=== PATIENT | female | born 1990 | race Caucasian/White ===

== ENCOUNTER 2017-12-21 08:03 | Emergency (ER) | payer MEDICAID ==
[2017-12-21] MEDS ORDERED: Sodium Chloride 0.9% 10 ML Syringe FLUSH PRN (08:39)
[2017-12-21] MEDS ORDERED: HYDROmorphone 0.5 MG/0.5 ML SYRINGE IVPUSH ONE (08:39)
--- NOTE | 2017-12-21 08:54 | EDM.PDOC ---
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 She states that she is about 6-1/2 weeks . She had a Pap smear done 5 days ago and then did develop some mild spotting a day later. She did have pelvic ultrasound 3 days ago and at that time there was viable with heart activity and heart rate around 105-110. She also did pass some clots and tissue, may have miscarried "a twin". She's continued to have mild discomfort and spotting for the past 3 days. Had a difficult night last night. The spotting is more in the morning when she first gets up. Because symptoms are not improving, she is worried about viability of she presents for reevaluation at this time. Lower Abdomen Pain Score (Numeric/FACES): 9 - Related Data Allergies Allergy/AdvReac Type Severity Reaction Status Date / Time diphenhydramine HCl Allergy Hives Verified 12/21/17 08:13 [From Benadryl] latex Allergy Swelling Verified 12/21/17 08:13 Penicillins Allergy Airway Verified 12/21/17 08:13 Tightness tetracycline [Tetracycline] Allergy Airway Verified 12/21/17 08:13 Tightness Home Meds: Home Meds Progesterone,Micronized [Progesterone] 100 mg PO DAILY 12/21/17 [History] Past Medical History - Past Health History Medical/Surgical History: Denies Medical/Surgical History Gastrointestinal History: Reports: PUD 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 History: Reports: Other OB/BYN History: A3 Psychiatric History: Reports: None - Past Surgical History Female Surgical History: Reports: Section Social & Family History - Tobacco Use Smoking Status *Q: Current Every Day Smoker Years of Tobacco use: 12 Packs/Tins Daily: 0.2 Used Tobacco, but Quit: No Second Hand Smoke Exposure: No - Caffeine Use Caffeine Use: Reports: None - Alcohol Use Days Per Week of Alcohol Use: 0 - Recreational Drug Use Recreational Drug Use: No Drug Use in Last 12 Months: No ED ROS GENERAL - Review of Systems Review Of Systems: See Below Constitutional: Denies: Fever, Chills HEENT: Reports: No Symptoms Respiratory: Denies: Shortness of Breath, Pleuritic Chest Pain Cardiovascular: Denies: Chest Pain GI/Abdominal: Reports: Abdominal Pain (Lower abdominal and pelvic steady discomfort with occasional cramps). Denies: Nausea, Vomiting : Reports: Pain, Other (Spotting) Musculoskeletal: Reports: Back Pain Skin: Reports: No Symptoms Neurological: Reports: No Symptoms ED EXAM - Physical Exam Exam: See Below General Appearance: Alert, Mild Distress Eye Exam: Bilateral Eye: PERRL Throat/Mouth: Normal Inspection Head: No: Facial Swelling Neck: Supple, Full Range of Motion Respiratory/Chest: No Respiratory Distress, Lungs Clear, Normal Breath Sounds Cardiovascular: Regular Rate, Rhythm GI/Abdominal Exam: Soft, Tender (Mild diffuse tenderness lower mid pelvis). No : Guarding, Rebound Extremities: Normal Inspection Neurological: Alert, Oriented, No Motor/Sensory Deficits Skin Exam: Warm, Dry, Normal Color Course - Vital Signs Last Recorded V/S: Last Vital Signs Temp 99 F 12/21/17 08:07 Pulse 97 12/21/17 08:07 Resp 26 H 12/21/17 08:07 BP 134/78 12/21/17 08:07 Pulse Ox 100 12/21/17 08:07 - Orders/Labs/Meds Orders: Active Orders 24 hr Category Date Time Status Peripheral IV Care [RC] . DIRECTED Care 12/21/17 08:40 Active Sodium Chloride 0.9% [Saline Flush] Med 12/21/17 08:39 Active 10 ml FLUSH ASDIRECTED PRN Peripheral IV Insertion Adult [OM.PC] Stat Oth 12/21/17 08:39 Ordered Medication Orders Sodium Chloride (Saline Flush) 10 ml FLUSH ASDIRECTED PRN PRN Reason: Keep Vein Open Last Admin: 12/21/17 08:55 Dose: 10 ml Labs: Laboratory Tests 12/21/17 Range/Units 09:00 HCG, Quant 3339.0 mIU/mL Meds: Medications Generic Name Dose Route Start Last Admin Trade Name Freq PRN Reason Stop Dose Admin Sodium Chloride 10 ml 12/21/17 08:39 12/21/17 08:55 Saline Flush FLUSH 10 ml ASDIRECTED PRN Administration Keep Vein Open Discontinued Medications Generic Name Dose Route Start Last Admin Trade Name Freq PRN Reason Stop Dose Admin Hydromorphone HCl 0.5 mg 12/21/17 08:39 12/21/17 08:54 Dilaudid IVPUSH 12/21/17 08:40 0.5 mg ONETIME ONE Administration Departure - Departure Time of Disposition: 10:32 Disposition: Home, Self-Care 01 Condition: Fair Clinical Impression: Threatened - Discharge Information Referrals: Frank Dahl MD [Primary Care Provider] - Forms: ED Department Discharge Additional Instructions: rest, avoid exertional activity for now, drink plenty of water to maintain hydration, continue tylenol q 6 to 8 hr for mild to moderate discomfort. You may take 1 hydrocodone up to every 6 hr for severe pain or better to take 500 mg tylenol along with 1/2 tablet hydrocodone q 6 to hr as needed for more severe pain. See Dr Dahl in about 3 to 4 days for recheck. Call Saturday for appt. If soaking more than 1 pad per hour for more than 1 or 2 hours return to ED. Return to ED otherwise as needed. - My Orders Last 24 Hours: My Active Orders 12/21/17 08:39 Sodium Chloride 0.9% [Saline Flush] 10 ml FLUSH ASDIRECTED PRN Peripheral IV Insertion Adult [OM.PC] Stat 12/21/17 08:40 Peripheral IV Care [RC] . DIRECTED - Assessment/Plan Last 24 Hours: My Active Orders 12/21/17 08:39 Sodium Chloride 0.9% [Saline Flush] 10 ml FLUSH ASDIRECTED PRN Peripheral IV Insertion Adult [OM.PC] Stat 12/21/17 08:40 Peripheral IV Care [RC] . DIRECTED
--- NOTE | 2017-12-21 10:11 | US ---
First trimester obstetrical ultrasound: Multiple real-time images were obtained transvaginally. Comparison: No previous study. Dates: LMP: ? Current ultrasound: [facility] 08/15/18, gestational age 6 weeks 1 day Single intrauterine gestation is seen. 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 Gestational sac appears within the right horn of the bicornuate uterus close to the lower uterine segment. Yolk sac and pole are seen. No discrete heart activity is seen at this time. Maternal ovaries are unremarkable. Measurements: [place]-rump length: 0.45 cm - 6 weeks 1 day Impression: 1. Single intrauterine gestational sac containing pole and yolk sac. Sac located on the right side of a bicornuate uterus which is low in position positioned close to the lower uterine segment. 2. No heart activity is seen. If patient does not spontaneously miscarry, recommend follow-up study in 11 days to further evaluate. Diagnostic code #3
[2017-12-21 10:47] VITALS: BP 118/82
== END 2017-12-21 10:48 | disposition home or self-care (01) ==
LOC: JD.ED 08:03
DX: O20.0 Threatened abortion (principal); O99.331 Smoking (tobacco) complicating pregnancy, first trimester; F17.210 Nicotine dependence, cigarettes, uncomplicated; Z88.8 Allergy status to other drugs, medicaments and biological substances; Z91.040 Latex allergy status; Z88.0 Allergy status to penicillin; Z88.1 Allergy status to other antibiotic agents; Z3A.01 Less than 8 weeks gestation of pregnancy
CPT/HCPCS: 36415; 76817; 84702; 96374; 99284; J1170; J7050

== ENCOUNTER 2017-12-21 11:11 | Emergency (ER) | payer MEDICAID ==
[2017-12-21 11:22] VITALS: BP 117/70
[2017-12-21] MEDS ORDERED: Acetaminophen/HYDROcodone 325-5 MG Tab PO ONE (11:38)
--- NOTE | 2017-12-21 11:42 | EDM.PDOC ---
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 Please refer to prior clinical documentation for details of that visit. She had presented with lower abdominal and pelvic discomfort, spotting which all began about 3 or 4 days ago. She had had what sounds like fairly normal OB ultrasound 3 days ago which did show hard activity in the 105-110 range. We did repeat ultrasound this morning just a short time ago with no heart activity visible at that time. After discharge she had just gone to pharmacy to get her prescription for some pain medication filled and felt "a gush of fluid mostly soaking a pad". Also her pain was starting to get worse so she return for reevaluation. She appologized for comiting back so soon but states living almost 1 hour out of town she wanted to be safe. Spotting had been quite mild while in our dept a short time ago. Lower Abdomen Pain Score (Numeric/FACES): 8 - Related Data Allergies Allergy/AdvReac Type Severity Reaction Status Date / Time diphenhydramine HCl Allergy Hives Verified 12/21/17 11:22 [From Benadryl] latex Allergy Swelling Verified 12/21/17 11:22 Penicillins Allergy Airway Verified 12/21/17 11:22 Tightness tetracycline [Tetracycline] Allergy Airway Verified 12/21/17 11:22 Tightness Home Meds: Home Meds Progesterone,Micronized [Progesterone] 100 mg PO DAILY 12/21/17 [History] Past Medical History - Past Health History Medical/Surgical History: Denies Medical/Surgical History Gastrointestinal History: Reports: PUD 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: Other OB/BYN History: A3 Psychiatric History: Reports: None - Past Surgical History Female Surgical History: Reports: Section Social & Family History - Tobacco Use Smoking Status *Q: Current Every Day Smoker Years of Tobacco use: 14 Packs/Tins Daily: 0.2 Used Tobacco, but Quit: No Second Hand Smoke Exposure: No - Caffeine Use Caffeine Use: Reports: None - Alcohol Use Days Per Week of Alcohol Use: 0 - Recreational Drug Use Recreational Drug Use: No Drug Use in Last 12 Months: No ED ROS GENERAL - Review of Systems Review Of Systems: See Below Constitutional: Denies: Fever, Chills, Diaphoresis HEENT: Reports: No Symptoms Respiratory: Denies: Shortness of Breath Cardiovascular: Denies: Chest Pain GI/Abdominal: Reports: Abdominal Pain. Denies: Nausea, Vomiting : Reports: Other. Denies: Pain (Mild to moderate spotting) Musculoskeletal: Reports: Back Pain Skin: Reports: No Symptoms Neurological: Reports: No Symptoms ED EXAM - Physical Exam Exam: See Below General Appearance: Alert, Mild Distress Head: Atraumatic Neck: Supple Respiratory/Chest: No Respiratory Distress GI/Abdominal Exam: Tender (Mild diffuse tenderness lower abdomen) (Female) Exam: Vaginal Bleeding (There is small amount of dark blood posterior vaginal vault, cervix is still closed, no clots or tissue present at this time) Extremities: Normal Inspection, Normal Range of Motion Neurological: Alert, No Motor/Sensory Deficits Skin Exam: Warm, Dry, Normal Color Course - Vital Signs Last Recorded V/S: Last Vital Signs Temp 99.2 F 12/21/17 11:16 Pulse 93 12/21/17 11:16 Resp 16 12/21/17 11:16 BP 117/70 12/21/17 11:16 Pulse Ox 100 12/21/17 11:16 Orthostatic Blood Pressure [ 111/76 Standing] Orthostatic Blood Pressure [ 113/83 Sitting] Orthostatic Blood Pressure [ 117/70 Supine] - Orders/Labs/Meds Meds: Medications Discontinued Medications Generic Name Dose Route Start Last Admin Trade Name Freq PRN Reason Stop Dose Admin Hydrocodone Bitart/Acetaminophen 1 tab 12/21/17 11:38 12/21/17 11:47 [place] 325-5 Mg PO 12/21/17 11:39 1 tab ONETIME ONE Administration - Re-Assessments/Exams Free Text/Narrative Re-Assessment/Exam: 12/21/17 12:24 Patient did well with orthostatics, no significant drop in blood pressure, pulse did increase mildly. Departure - Departure Time of Disposition: 11:42 Disposition: Home, Self-Care 01 Preliminary Cause of *Q: Sepsis & Multi System Organ Failure Clinical Impression: Threatened - Discharge Information Instructions: Threatened Miscarriage, [id number] Referrals: Frank Dahl MD [Primary Care Provider] - Forms: ED Department Discharge Additional Instructions: You've been given hydrocodone 12/19/24 will here in the ED. Also been given Dilaudid 0.5 mg IV 2-1/2 hours ago on your previous visit. These are sedating medications so no driving today. Prior discharge instructions all remain appropriate. See Dr. Dahl early next week for follow-up. Return to ED as needed.
== END 2017-12-21 12:05 | disposition home or self-care (01) ==
LOC: JD.ED 11:11
DX: O20.0 Threatened abortion (principal); O99.331 Smoking (tobacco) complicating pregnancy, first trimester; F17.210 Nicotine dependence, cigarettes, uncomplicated; Z88.8 Allergy status to other drugs, medicaments and biological substances; Z88.0 Allergy status to penicillin; Z88.1 Allergy status to other antibiotic agents; Z3A.01 Less than 8 weeks gestation of pregnancy
CPT/HCPCS: 99284; A9270

== ENCOUNTER 2018-02-26 20:41 | Emergency (ER) | payer MEDICAID ==
[2018-02-26 20:51] VITALS: BP 123/73
[2018-02-26] MEDS ORDERED: HYDROmorphone 0.5 MG/0.5 ML SYRINGE IVPUSH ONE (21:13)
[2018-02-26] MEDS ORDERED: Metoclopramide 10 MG/2 ML SDV IVPUSH ONE (21:13)
[2018-02-26] MEDS ORDERED: Sodium Chloride 0.9% 10 ML Syringe FLUSH PRN (21:13)
[2018-02-26] MEDS ORDERED: Sodium Chloride 0.9% 1,000 ML IV ONE (21:13)
--- NOTE | 2018-02-26 21:18 | EDM.PDOC ---
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 Patient report about 2 hours prior to arrival in the ER she reports severe pelvic cramping. She states that she was diaphoretic and felt nauseous. She reports she is able to get up and eat dinner. While walking after dinner she felt a gush and worsening cramping. She appreciated vaginal bleeding, reports bright red blood, she has not passing clots but states that she has been passing what she feels is likely tissue. She reports at this time her cramps are 7 out of 10. She reports associated symptoms of nausea but no vomiting. She experienced some back pain earlier but none now. She denies any recent fevers, chills or any dysuria. She did take some Tylenol, 500 mg, about an hour prior to arrival in the ER. Patient reports that she continues to have symptoms such as breast tenderness and nausea. She has been taking Unisom for her nausea. She is a . Her AUTO CLAIMS ADJUSTER provider is Dr. Dahl. Last visit with Dr. Dahl was on February 11. She had an ultrasound done which showed a gestational sac within the right arm or for bicornuate uterus. heart rate at that time was 151 bpm. No free fluid in the posterior cul-de-sac. Patient does not know her blood type. Reviewed patient's records show that she is O+. Onset: Today, Sudden Location: Reports: Pelvis Lower Abdomen Pain Score (Numeric/FACES): 6 - Related Data Allergies Allergy/AdvReac Type Severity Reaction Status Date / Time diphenhydramine HCl Allergy Hives Verified 02/26/18 20:46 [From Benadryl] latex Allergy Swelling Verified 02/26/18 20:46 Penicillins Allergy Airway Verified 02/26/18 20:46 Tightness tetracycline [Tetracycline] Allergy Airway Verified 02/26/18 20:46 Tightness Home Meds: Home Meds Progesterone,Micronized [Progesterone] 100 mg PO DAILY 12/21/17 [History] Past Medical History - Past Health History Medical/Surgical History: Denies Medical/Surgical History Gastrointestinal History: Reports: PUD 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 Denies: Vomiting : Reports: Pain (pelvic pain), Other (bright red blood per vaginal, no clots) . Denies: Dysuria Musculoskeletal: Reports: Back Pain (low back. earlier now resolved) ED EXAM - Physical Exam Exam: See Below Exam Limited By: No Limitations General Appearance: Alert, WD/WN, No Apparent Distress, Anxious Throat/Mouth: Normal Inspection Respiratory/Chest: No Respiratory Distress, Lungs Clear, Normal Breath Sounds Cardiovascular: Normal Peripheral Pulses, Regular Rate, Rhythm, No Rub GI/Abdominal Exam: Soft, Non-Tender (Female) Exam: Vaginal Bleeding. No: Cervical Dilatation, Products of Conception, Tissue Present in Cervix/Vagina Heart Tones: Present Neurological: Alert, Oriented, Normal Cognition Psychiatric: Normal Affect, Normal Mood Skin Exam: Warm, Dry, Normal Color Course - Vital Signs Last Recorded V/S: Last Vital Signs Temp 98.1 F 02/26/18 20:46 Pulse 98 02/26/18 20:46 Resp 16 02/26/18 20:46 BP 123/73 02/26/18 20:46 Pulse Ox 100 02/26/18 20:46 - Orders/Labs/Meds Orders: Active Orders 24 hr Category Date Time Status Pelvic Exam, Set Up [RC] ASDIRECTED Care 02/26/18 21:13 Active Peripheral IV Care [RC] . DIRECTED Care 02/26/18 21:14 Active OB Transvaginal [US] Stat Exams 02/26/18 21:13 Stop Req HCG QUANTITATIVE,SERUM [CHEM] Stat Lab 02/26/18 21:13 Ordered UA W/MICROSCOPIC [URIN] Stat Lab 02/26/18 21:12 Ordered Sodium Chloride 0.9% [Saline Flush] Med 02/26/18 21:13 Active 10 ml FLUSH ASDIRECTED PRN Peripheral IV Insertion Adult [OM.PC] Routine Oth 02/26/18 21:12 Ordered Medication Orders Sodium Chloride (Saline Flush) 10 ml FLUSH ASDIRECTED PRN PRN Reason: Keep Vein Open Last Admin: 02/26/18 22:11 Dose: 10 ml Labs: Laboratory Tests 02/26/18 02/26/18 Range/Units 21:57 22:02 WBC 16.28 H (3.98-10.04) K/mm3 RBC 4.02 (3.98-5.22) M/mm3 Hgb 12.8 (11.2-15.7) gm/L Hct 37.1 (34.1-44.9) % MCV 92.3 (79.4-94.8) fl MCH 31.8 (25.6-32.2) pg MCHC 34.5 (32.2-35.5) g/dl RDW Std Deviation 41.1 (36.4-46.3) fL Plt Count 305 (182-369) K/mm3 MPV 10.3 (9.4-12.3) fl Neut % (Auto) 85.7 H (34.0-71.1) % Lymph % (Auto) 10.2 L (19.3-51.7) % [place] % (Auto) 3.7 L (4.7-12.5) % Eos % (Auto) 0.1 L (0.7-5.8) Baso % (Auto) 0.1 (0.1-1.2) % Neut # (Auto) 13.94 H (1.56-6.13) K/mm3 Lymph # (Auto) 1.66 (1.18-3.74) K/mm3 [place] # (Auto) 0.61 H (0.24-0.36) K/mm3 Eos # (Auto) 0.02 L (0.04-0.36) K/mm3 Baso # (Auto) 0.01 (0.01-0.08) K/mm3 Manual Slide Review Normal smear Urine Color Yellow (Yellow) Urine Appearance Clear (Clear) Urine pH 6.0 (5.0-8.0) Ur Specific [place] > or = 1.030 (1.005-1.030) Urine Protein 1+ H (Negative) Urine Glucose (UA) Negative (Negative) Urine Ketones Negative (Negative) Urine Occult Blood 2+ H (Negative) Urine Nitrite Negative (Negative) Urine Bilirubin Negative (Negative) Urine Urobilinogen 0.2 (0.2-1.0) Ur Leukocyte Esterase Negative (Negative) Urine RBC 5-10 H (0-5) /hpf Urine WBC 0-5 (0-5) /hpf Ur Epithelial Cells 0-5 (0-5) /hpf Urine Bacteria Moderate H (FEW) /hpf Urine Mucus Moderate H (FEW) /hpf Meds: Medications Generic Name Dose Route Start Last Admin Trade Name Freq PRN Reason Stop Dose Admin Sodium Chloride 10 ml 02/26/18 21:13 02/26/18 22:11 Saline Flush FLUSH 10 ml ASDIRECTED PRN Administration Keep Vein Open Discontinued Medications Generic Name Dose Route Start Last Admin Trade Name Freq PRN Reason Stop Dose Admin Hydromorphone HCl 0.5 mg 02/26/18 21:13 02/26/18 22:10 Dilaudid IVPUSH 02/26/18 21:14 0.5 mg ONETIME ONE Administration Sodium Chloride 1,000 mls @ 999 mls/hr 02/26/18 21:13 02/26/18 22:08 Normal Saline IV 02/26/18 22:13 999 mls/hr ONETIME ONE Administration Metoclopramide HCl 5 mg 02/26/18 21:13 02/26/18 22:09 Reglan IVPUSH 02/26/18 21:14 5 mg ONETIME ONE Administration - Re-Assessments/Exams Free Text/Narrative Re-Assessment/Exam: 02/26/18 22:44 Offered the patient a transvaginal ultrasound. Given she deos not have an ectopic and she, at this point, has good heart tones would not require one in the ED. Appropriate to wait until tomorrow with Ob for an ultrasound. She agrees, will forgo transvaginal ultrasound tonight. Checked on the patient. She reports feeling better. Feels that her bleeding is subsiding. Her cramping is better. Plan to discharge her home. She is to follow-up with Dr. Patton tomorrow. Pelvic rest. Discharge instructions as documented. Departure - Departure Time of Disposition: 22:46 Disposition: Home, Self-Care 01 Condition: Fair Clinical Impression: Vaginal bleeding during , Pelvic cramping in antepartum period, Threatened - Discharge Information *PRESCRIPTION DRUG MONITORING PROGRAM REVIEWED*: No *COPY OF PRESCRIPTION DRUG MONITORING REPORT IN PATIENT VANE: No Referrals: Frank Dahl MD [Primary Care Provider] - Forms: ED Department Discharge Additional Instructions: Contact Dr. Dahl's office in the morning for follow-up. Call [phone] to schedule with him. Patient drinking plenty of fluids. Pelvic rest. Nothing vaginally until cleared by Dr. Dahl. You were given medication in the ER that can affect your ability to drive and operate machinery. Do not drive or operate machinery within 12 hours of taking prescription narcotic pain medication. May take OTC tylenol as needed for pain. Do not take more than 4 g of Tylenol from all sources in 1 day. [place] 1-2 tabs PO every 4-6 hours prn pain. [place] is habit forming, take as little as needed to control your pain. Do not drive or operate machinery within 12 hours of taking norco. Please return to the ER for symptoms change or worsen. - My Orders Last 24 Hours: My Active Orders 02/26/18 21:12 UA W/MICROSCOPIC [URIN] Stat Peripheral IV Insertion Adult [OM.PC] Routine 02/26/18 21:13 Pelvic Exam, Set Up [] ASDIRECTED OB Transvaginal [US] Stat HCG QUANTITATIVE,SERUM [CHEM] Stat Sodium Chloride 0.9% [Saline Flush] 10 ml FLUSH ASDIRECTED PRN 02/26/18 21:14 Peripheral IV Care [RC] . DIRECTED - Assessment/Plan Last 24 Hours: My Active Orders 02/26/18 21:12 UA W/MICROSCOPIC [URIN] Stat Peripheral IV Insertion Adult [OM.PC] Routine 02/26/18 21:13 Pelvic Exam, Set Up [] ASDIRECTED OB Transvaginal [US] Stat HCG QUANTITATIVE,SERUM [CHEM] Stat Sodium Chloride 0.9% [Saline Flush] 10 ml FLUSH ASDIRECTED PRN 02/26/18 21:14 Peripheral IV Care [RC] . DIRECTED
== END 2018-02-26 22:58 | disposition home or self-care (01) ==
LOC: JD.ED 20:41
DX: O20.0 Threatened abortion (principal); Z3A.09 9 weeks gestation of pregnancy; O99.331 Smoking (tobacco) complicating pregnancy, first trimester; F17.210 Nicotine dependence, cigarettes, uncomplicated; Z79.899 Other long term (current) drug therapy; Z88.0 Allergy status to penicillin; Z88.1 Allergy status to other antibiotic agents; Z88.8 Allergy status to other drugs, medicaments and biological substances; Z91.040 Latex allergy status
CPT/HCPCS: 36415; 81001; 84702; 85025; 96361; 96374; 96375; 99284; J1170; J2765; J7040; J7050

== ENCOUNTER 2018-09-10 12:01 | Inpatient (IN) | payer MEDICAID ==
[2018-09-10] MEDS ORDERED: Citric Acid/Sodium Citrate Solution 30 ML Cup PO ONE (12:19)
[2018-09-10] MEDS ORDERED: Metoclopramide 10 MG/2 ML SDV IVPUSH ONE (12:19)
[2018-09-10] MEDS ORDERED: Nalbuphine 20 MG/ML 1 ML Syringe IVPUSH PRN ×2 (12:19→15:10)
[2018-09-10] MEDS ORDERED: Sodium Chloride 0.9% 10 ML Syringe FLUSH PRN ×2 (12:19→15:10)
--- NOTE | 2018-09-10 12:35 | PCM.LDHP ---
L&D History of Present Illness - General Date of Service: 09/10/18 Admit Problem/Dx: Patient Status Order with Admit Dx/Problem 09/10/18 12:19 Patient Status [ADT] Routine Admission Diagnosis/Problem Admission Diagnosis/Problem Abnormal heart rate affecting Source of Information: Patient History Limitations: Reports: No Limitations - History of Present Illness Introduction:: Jesus Mendoza is a 28 year old female at 37 weeks 5 days by 7 week ultrasound who presents for repeat section in the setting of non- reassuring NST and breech presentation. She presented for a routine visit in the clinic today and was noted to have elevated heart tones by Doppler. She had an NST done due to this and was found to have elevated baseline in the 170s with positive 15 by 15 accelerations and moderate variability. She had one variable deceleration during the NST. She was reporting elevated heart rates when she was checking at home. She has had some [place] contractions and had an episode of contractions this morning that resolved spontaneously. She denies any leaking of fluid or vaginal bleeding. She was found to have complete breech presentation on ultrasound after abnormal Bk's exam. She was offered for external cephalic version versus repeat section and desired to have repeat section. Timing/Duration: Reports: gradual onset (of increasing heart tones since last appointment) Location, : Reports: Lower back, Pelvic Quality: Reports: Pressure, Throbbing Severity: Moderate Pain Score: 7 Improves with: Reports: None Worsens with: Reports: None Associated Symptoms: Denies: vaginal bleeding, vaginal discharge, vaginal fluid Present Illness Comments:: Jesus Mendoza is a 28 year old female at 37 weeks 5 days by 7 week ultrasound with abnormal testing. She has had routine care with myself since 7 weeks gestational age. Review of her labs shows O+ blood type and negative antibody screen. Her hemtocrit was 37.1 and hemoglobin of 12.5 with platelets of 310 on 05/14/2018. She is rubella immune. Her RPR, hepatitis B surface antigen and HIV were all negative. Her urine culture was negative. Her gonorrhea and chlamydia tests were negative prior to miscarriage in November and she declined repeat at the beginning of this . Her initial anatomy ultrasound showed and echogenic focus in the left ventricle and a possible amniotic band was seen. Mclean testing was negative. Repeat ultrasound showed resolution of the echogenic focus and no evidence of the band. Her 1 hour glucose test was normal at 87. Her repeat CBC had a hematocrit with 36.1 and hemoglobin of 11.8 and platelets of 304 on 06/16/2018. Her GBS swab was negative. Her has been complicated by: * History of section for placental abruption at 32 WGA, desired TOLAC * History of delivery at 32 WGA due to placental abruption, patient on Leah IM injections until 36 WGA * Breech presentation at clinic visit * GERD in * Tobacco use in * Anxiety in * Bicornuate uterus - Related Data Allergies/Adverse Reactions: Allergies Allergy/AdvReac Type Severity Reaction Status Date / Time diphenhydramine HCl Allergy Hives Verified 09/10/18 12:40 [From Benadryl] latex Allergy Swelling Verified 09/10/18 12:40 Penicillins Allergy Airway Verified 09/10/18 12:40 Tightness tetracycline [Tetracycline] Allergy Airway Verified 09/10/18 12:40 Tightness tramadol Allergy Hives Verified 09/10/18 12:40 Home Medications: Home Meds PNV95/Ferrous Fumarate/FA [ Vitamin Tablet] 1 tab PO DAILY 09/10/18 [ History] Past Medical History - Past Health History Medical/Surgical History: Denies Medical/Surgical History Gastrointestinal History: Reports: PUD 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 OB/BYN History: A3 Psychiatric History: Reports: None - Past Surgical History Female Surgical History: Reports: Section Social & Family History - Tobacco Use Smoking Status *Q: Current Every Day Smoker - Tobacco Core Measures Tobacco Use/Smoking Within Last 30 Days: Yes Smoking Frequency Within Last 30 Days: Reports: Five or More Cigarettes Per Day Desires Tobacco Cessation Medication: Yes Desired Tobacco Cessation Medication: Nicotine patch after delivery - Caffeine Use Caffeine Use: Reports: None - Alcohol Use Alcohol Use History: No - Recreational Drug Use Recreational Drug Use: No Drug Use in Last 12 Months: No - Living Situation & Occupation Living situation: Reports: , with Spouse H&P Review of Systems - Review of Systems: Review Of Systems: See Below General: Denies: Fever, Chills, Malaise, Weakness, Fatigue HEENT: Reports: Glasses. Denies: Post Nasal Drip, Sinus Congestion, Sore Throat , Visual Changes Pulmonary: Denies: Shortness of Breath, Wheezing, Cough Cardiovascular: Denies: Chest Pain, Palpitations, Dyspnea on Exertion Gastrointestinal: Denies: Abdominal Pain, Constipation, Diarrhea, Nausea, Vomiting Genitourinary: Denies: Dysuria, Frequency, Burning, Pain, Urgency Musculoskeletal: Reports: Back Pain (hip and pelvic pain and pressure) Skin: Denies: Rash, Lesions Psychiatric: Denies: Depression, Anxiety Neurological: Denies: Dizziness L&D Exam - Exam Exam: See Below - Vital Signs Vital Signs: BP: 119/70 Weight: 84.64 kg - OB Specific Fundal Height In cm: 38 Contraction Duration (sec): irritability Contraction Intensity: Irritability Movement: Active Heart Tones: Present Heart Tones per Min: 170 (+15 x 15 accelerations, 1 variable deceleration during NST) Heart Rate (FHR) Variability: Moderate (6-25 bmp) Presentation: Breech Estimated Weight: 6.5-7 pounds by Bk's - Harper Score Harper Score Cervix Position: Anterior Harper Score Consistency: Medium Harper Score Effacement: >80% (80%) Harper Score Dilation: 3-4 cm (3 cm) Harper Score Infant's Station: -3 Harper Score Total: 8 - Exam General: Alert, Oriented HEENT: Conjunctiva Clear, EOMI Neck: Supple, Trachea Midline Lungs: Clear to Auscultation, Normal Respiratory Effort Cardiovascular: Regular Rate, Regular Rhythm GI/Abdominal Exam: Soft, No Distention, Other (Gravid). No: Guarding, Rigid, Rebound Genitourinary: Normal external exam Extremities: No Pedal Edema Skin: Warm, Dry, Intact Psychiatric: Alert, Normal Affect, Normal Mood - Patient Data Result Diagrams: 09/10/18 13:14 - Problem List (1) 37 weeks gestation of SNOMED Code(s): 91662285 ICD Code: Z3A.37 - 37 WEEKS GESTATION OF Status: Acute Current Visit: Yes (2) Non-reassuring electronic monitoring tracing SNOMED Code(s): 943154258 ICD Code: O76 - ABNLT IN HEART RATE AND RHYTHM COMP LABOR AND DELIVERY Status: Acute Current Visit: Yes (3) Breech presentation SNOMED Code(s): 5454645 ICD Code: O32.1XX0 - MATERNAL CARE FOR BREECH PRESENTATION, UNSP Status: Acute Current Visit: Yes (4) History of delivery, currently SNOMED Code(s): 279346552, 909407975 ICD Code: O34.219 - MATERNAL CARE FOR UNSP TYPE SCAR FROM PREVIOUS DEL Status: Acute Current Visit: Yes (5) History of section SNOMED Code(s): 685497701 ICD Code: Z98.891 - HISTORY OF UTERINE SCAR FROM PREVIOUS SURGERY Status: Acute Current Visit: Yes (6) History of delivery SNOMED Code(s): 954852031 ICD Code: Z87.51 - PERSONAL HISTORY OF PRE-TERM LABOR Status: Acute Current Visit: Yes (7) History of delivery, currently SNOMED Code(s): 777547627, 252991816 ICD Code: O09.219 - SUPRVSN OF PREG W HISTORY OF PRE-TERM LABOR, UNSP TRIMESTER Status: Acute Current Visit: Yes (8) History of placental abruption SNOMED Code(s): 205491249, 465908115 ICD Code: Z87.59 - PERSONAL HISTORY OF COMP OF PREG, CHLDBRTH AND THE PUERP Status: Acute Current Visit: Yes (9) Tobacco use during SNOMED Code(s): 012327659833099 ICD Code: O99.330 - SMOKING (TOBACCO) COMPLICATING , UNSP TRIMESTER Status: Acute Current Visit: Yes (10) Anxiety SNOMED Code(s): 59272749 ICD Code: F41.9 - ANXIETY DISORDER, UNSPECIFIED Status: Acute Current Visit: Yes Problem List Initiated/Reviewed/Updated: Yes Orders Last 24hrs: Active Orders 24 hr Category Date Time Status Patient Status [ADT] Routine ADT 09/10/18 12:19 Ordered Communication Order [RC] ROUTINE Care 09/10/18 12:19 Ordered Heart Tones [RC] PER UNIT ROUTINE Care 09/10/18 12:19 Ordered Non Stress Test [RC] PER UNIT ROUTINE Care 09/10/18 12:19 Ordered Peripheral IV Care [RC] . DIRECTED Care 09/10/18 12:21 Ordered Procedure Site Prep Instruct [RC] ASDIRECTED Care 09/10/18 12:19 Ordered Verify Patient Consent Obtain [RC] PER UNIT ROUTINE Care 09/10/18 12:19 Ordered Vital Signs [RC] PFP Care 09/10/18 12:19 Ordered Nothing Per Oral Diet [DIET] Diet 09/10/18 Lunch Ordered CBC WITH AUTO DIFF [HEME] Routine Lab 09/10/18 12:19 Ordered RAPID PLASMA REAGIN,RPR [CHEM] Routine Lab 09/10/18 12:19 Ordered TYPE AND SCREEN [BBK] Routine Lab 09/10/18 12:19 Ordered Citric Acid/Sodium Citrate [Bicitra Solution] Med 09/10/18 12:19 Once 30 ml PO ONETIME ONE Lactated Ringers @ 125 MLS/HR(1000ml) Med 09/10/18 12:30 Ordered Lactated Ringers [Ringers, Lactated] 1,000 ml IV ASDIRECTED Metoclopramide [Reglan] Med 09/10/18 12:19 Once 10 mg IVPUSH ONETIME ONE Nalbuphine [Nubain] Med 09/10/18 12:19 Ordered 10 mg IVPUSH Q2H PRN Sodium Chloride 0.9% [Saline Flush] Med 09/10/18 12:19 Ordered 10 ml FLUSH ASDIRECTED PRN ceFAZolin [Ancef] 2 gm Med 09/10/18 12:19 Ordered Premix Bag 1 bag IV ONETIME Peripheral IV Insertion Adult [OM.PC] Routine Oth 09/10/18 12:19 Ordered Schedule Procedure [COMM] Per Unit Routine Oth 09/10/18 14:15 Ordered Resuscitation Status Routine Resus Stat 09/10/18 12:19 Ordered Assessment/Plan Comment:: Patient presents to labor and delivery for planned section. On arrival to labor and delivery she had resolution of her tachycardia. Patient did have nonreassuring NST in the clinic and recommended for continued delivery due to this nonreassuring NST and greater than 37 weeks gestational age. * Had further discussions with the patient regarding her desire for delivery method and she would like to try for a vaginal delivery. Given this new information discussed the risks and benefits of a attempted version with the patient and she desired to proceed with the attempted external cephalic version. * Consents were reviewed and signed with the patient for external cephalic version, possible trial of labor after section and possible section. Discussed risks and benefits of each of these procedures and patient states understanding. Consents were signed. * CBC and type and screen were collected prior to procedure * Patient to be nothing by mouth until after procedure * RPR collected * NST prior to procedure * Place IV and start LR@125 mL per hour * Plan for external cephalic version to be done in the operating room after patient has been given an epidural. If successful she'll be transferred back for induction of labor with Pitocin. If unsuccessful then will do a at that time. Frank Dahl M.D. 2:12 PM 09/10/2018
[2018-09-10] MEDS: Lactated Ringers 1,000 ML IV SCH ×6 (12:45→20:35)
[2018-09-10] MEDS ORDERED: DEXTROSE 5% IV ONE ×2 (13:00)
[2018-09-10] MEDS ORDERED: Clindamycin Phosphate 900 MG in Sodium Chloride 0.9% 100 ML IV ONE (13:00)
[2018-09-10] MEDS ORDERED: ceFAZolin 2 GM in Premix Bag 1 BAG IV ONE (13:00)
[2018-09-10] MEDS ORDERED: WATER IV ONE ×2 (13:00)
[2018-09-10] MEDS ORDERED: GENTAMICIN IV ONE ×2 (13:00)
[2018-09-10] MEDS ORDERED: Bupivacaine 0.5% 30 ML SDV ONE (13:17)
--- NOTE | 2018-09-10 13:25 | PCM.PREANE ---
Preanesthetic Assessment - Anesthesia/Transfusion/Family Hx Anesthesia History: Prior Anesthesia Without Reaction Family History of Anesthesia Reaction: No Transfusion History: No Prior Transfusion(s) - Review of Systems General: No Symptoms Pulmonary: Other (smoker, smokes 7 per day) Cardiovascular: No Symptoms Gastrointestinal: Other (GERD on a rare occasion) - Physical Assessment NPO Status Date: 09/10/18 NPO Status Time: 10:30 (apple, orange and crackers [id number]) O2 Sat by Pulse Oximetry: 97 Respiratory Rate: 16 Vital Signs: Last Vital Signs Temp 37.6 C 09/10/18 12:19 Pulse 103 H 09/10/18 12:19 Resp 16 09/10/18 12:19 BP 143/87 H 09/10/18 12:19 Pulse Ox 97 09/10/18 12:19 Height: 1.57 m Weight: 83.915 kg ASA Class: 2 Mental Status: Alert & Oriented x3 Airway Class: Mallampati = 2 Dentition: Reports: Normal Dentition Thyro-Mental Finger Breadths: 3 Mouth Opening Finger Breadths: 3 ROM/Head Extension: Full Lungs: Clear to Auscultation, Normal Respiratory Effort Cardiovascular: Regular Rate, Regular Rhythm - Allergies Allergies/Adverse Reactions: Allergies Allergy/AdvReac Type Severity Reaction Status Date / Time diphenhydramine HCl Allergy Hives Verified 09/10/18 12:40 [From Benadryl] latex Allergy Swelling Verified 09/10/18 12:40 Penicillins Allergy Airway Verified 09/10/18 12:40 Tightness tetracycline [Tetracycline] Allergy Airway Verified 09/10/18 12:40 Tightness tramadol Allergy Hives Verified 09/10/18 12:40 - Blood Blood Available: No Product(s) Available: None - Anesthesia Plan Pre-Op Medication Ordered: None - Acknowledgements Anesthesia Type Planned: Epidural Pt an Appropriate Candidate for the Planned Anesthesia: Yes Alternatives and Risks of Anesthesia Discussed w Pt/Guardian: Yes Pt/Guardian Understands and Agrees with Anesthesia Plan: Yes PreAnesthesia Questionnaire - Past Health History Medical/Surgical History: Denies Medical/Surgical History Gastrointestinal History: Reports: PUD 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 OB/BYN History: A3 Psychiatric History: Reports: None - Infectious Disease History Infectious Disease History: Reports: None - Past Surgical History Female Surgical History: Reports: Section - SUBSTANCE USE Smoking Status *Q: Current Every Day Smoker Tobacco Use Within Last Twelve Months: Cigarettes Second Hand Smoke Exposure: No Recreational Drug Use History: No - HOME MEDS Home Medications: Home Meds PNV95/Ferrous Fumarate/FA [ Vitamin Tablet] 1 tab PO DAILY 09/10/18 [ History] - CURRENT (IN HOUSE) MEDS Current Meds: Current Medications Gentamicin Sulfate (Pharmacy To Dose - Gentamicin) 1 dose .XX ASDIRECTED JOSE Stop: 09/10/18 15:00 Cefazolin Sodium/Dextrose 2 gm (/ Premix) 50 mls @ 100 mls/hr IV ONETIME ONE Stop: 09/10/18 13:29 Lactated Ringer's (Ringers, Lactated) 1,000 mls @ 125 mls/hr IV ASDIRECTED [facility] Last Admin: 09/10/18 12:45 Dose: 125 mls/hr Clindamycin Phosphate 900 mg/ (Sodium Chloride) 106 mls @ 212 mls/hr IV ONETIME ONE Stop: 09/10/18 13:29 Gentamicin Sulfate 320 mg/ (Dextrose/Water) 108 mls @ 108 mls/hr IV ONETIME ONE Stop: 09/10/18 13:59 Nalbuphine HCl (Nubain) 10 mg IVPUSH Q2H PRN PRN Reason: pain Sodium Chloride (Saline Flush) 10 ml FLUSH ASDIRECTED PRN PRN Reason: Keep Vein Open Discontinued Medications Citric Acid/Sodium Citrate (Bicitra Solution) 30 ml PO ONETIME ONE Stop: 09/10/18 12:20 Metoclopramide HCl (Reglan) 10 mg IVPUSH ONETIME ONE Stop: 09/10/18 12:20
[2018-09-10] MEDS ORDERED: fentaNYL 100 MCG/2 ML SDV ONE (13:39)
[2018-09-10] MEDS ORDERED: Lidocaine 2% with EPINEPHrine 1:200,000 20 ML SDV ONE (13:40)
[2018-09-10] MEDS ORDERED: Sodium Bicarbonate 8.4% 50 MEQ/50 ML SDV ONE (13:40)
[2018-09-10] MEDS ORDERED: ePHEDrine 50 MG/ML SDV IVPUSH PRN ×2 (14:38→16:07)
[2018-09-10] MEDS ORDERED: Ondansetron 4 MG/2 ML SDV IVPUSH PRN ×3 (14:38→16:07)
[2018-09-10] MEDS ORDERED: Bupivacaine/fentaNYL/NS 100 ML Bag EPIDUR SCH (14:45)
--- NOTE | 2018-09-10 15:01 | PCM48HPAN ---
Post Anesthesia Note - EVALUATION WITHIN 48HRS OF ANESTHETIC Vital Signs in Normal Range: Yes Patient Participated in Evaluation: Yes Respiratory Function Stable: Yes Airway Patent: Yes Cardiovascular Function Stable: Yes Hydration Status Stable: Yes Pain Control Satisfactory: Yes Nausea and Vomiting Control Satisfactory: Yes Mental Status Recovered: Yes Pulse Rate: 100 SaO2: 100 Resp Rate: 16 Blood Pressure: 114/63
[2018-09-10] MEDS ORDERED: Acetaminophen 325 MG Tab PO PRN (15:10)
--- NOTE | 2018-09-10 15:14 | PCM.OPNOTE ---
- General Post-Op/Procedure Note Date of Surgery/Procedure: 09/10/18 Operative Procedure(s): External cephalic version Findings: initially in thad breech presentation with head on maternal right and spine towards maternal right side. External cephalic version is successful and in vertex presentation at the end of the procedure. Normal heart tones by ultrasound after the procedure. Pre Op Diagnosis: 37 weeks gestational age with nonreassuring NST and breech presentation in the clinic desiring external cephalic version Post-Op Diagnosis: Same with successful external cephalic version and desires trial of labor after section Anesthesia Technique: Epidural Primary Surgeon: Frank Dahl Anesthesia Provider: Naomi Flannery Pathology: None Fluid Replacement, Intraop: 1,900 Output, Urine Amount: 0 (Voided prior to procedure) EBL in mLs: 0 Complications: None Condition: Good Free Text/Narrative:: The patient was seen on labor and delivery after being sent down from clinic. Her NST at that time showed resolution of the tachycardia but I still recommended for continuation of delivery given the nonreassuring status of the NST in the clinic. Patient in agreement fluid given the resolution of the abnormal heart tracing she stated that she would like to try external cephalic version with trial of labor after section is successful and repeat section if unsuccessful. Discussed the risks and benefits of each of the procedures with the patient and she states understanding. Consents were signed. The patient was taken back to the operating room #1. She was given epidural anesthesia and placed in dorsal supine position with left lateral tilt. A timeout was done to confirm the correct patient and procedure with 2 patient identifiers. Ultrasound was performed which showed head near the uterine fundus on maternal right side with thad breech position and normal amount of fluid. The spine was to the maternal right side. The heart was visualized and heart rate was felt to be in the 130s. The pelvis was then lifted out of the maternal pelvis and pressure was applied to rotate the infant in a backward somersault maneuver with a counterclockwise rotation. After approximately 30 seconds of pressure the head was evaluated and felt to be in the right lower quadrant of the uterus in oblique position. Additional pressure was applied to the head and pelvis for additional counterclockwise rotation and the head was positioned in the midline of the maternal pelvis. The heart was evaluated at this time and heart rate continued to be in the 130s and appeared that the infant tolerated the procedure well. The procedure was complete at this time and mother and infant tolerated the procedure without difficulty. The mother will be transferred back to labor and delivery and started on Pitocin for induction of labor given her nonreassuring NST that was previously performed with resolution prior to the external cephalic version. We will continue to monitor closely for other indications that would indicate need for repeat section. Anticipate vaginal delivery unless otherwise indicated.
[2018-09-10] MEDS ORDERED: Oxytocin/Lactated Ringers 10 UNIT/1,000 ML BAG IV SCH ×3 (15:15→22:10)
[2018-09-10] MEDS: Nicotine 21 MG/24 Hr Patch TRDERM SCH (16:07)
[2018-09-10] MEDS ORDERED: fentaNYL/Bupivacaine-NS 2 MCG/ML-0.125%/PF 100 ML Bag EP SCH (16:15)
--- NOTE | 2018-09-10 17:21 | PCM.PNLD ---
Labor Progress Note - VS & Meds Vital Signs: Last Vital Signs Temp 37.6 C 09/10/18 12:19 Pulse 100 09/10/18 15:01 Resp 16 09/10/18 15:01 BP 114/63 09/10/18 15:01 Pulse Ox 100 09/10/18 15:01 Active Medications: Current Medications Acetaminophen (Tylenol) 650 mg PO Q6H PRN PRN Reason: Pain (Mild 1-3) and fever Ephedrine Sulfate (Ephedrine Sulfate) 5 mg IVPUSH ASDIRECTED PRN PRN Reason: Hypotension Fentanyl/Bupivacaine HCl (Suxjdjig-Zekhi-Td 2 Mcg/Ml-0.125%) 100 ml EP ASDIRECTED JOSE Last Admin: 09/10/18 16:31 Dose: 100 ml Lactated Ringer's (Ringers, Lactated) 1,000 mls @ 100 mls/hr IV ASDIRECTED JOSE Last Admin: 09/10/18 15:58 Dose: 999 mls/hr Oxytocin/Lactated Ringer's (Pitocin In Lr 10 Units/1,000 Ml) 10 unit in 1,000 mls @ 100 mls/hr IV .CONTINUOUS JOSE Oxytocin/Lactated Ringer's (Pitocin In Lr 10 Units/1,000 Ml) 10 unit in 1,000 mls @ 12 mls/hr IV TITRATE JOSE; Protocol Last Titration: 09/10/18 17:05 Dose: 6 munits/min, 36 mls/hr Miscellaneous Information (Remove Patch) 1 ea TRDERM Q24H JOSE Nalbuphine HCl (Nubain) 10 mg IVPUSH Q2H PRN PRN Reason: Pain (moderate 4-6) Nicotine (Habitrol) 21 mg TRDERM DAILY [facility] Last Admin: 09/10/18 16:07 Dose: 21 mg Ondansetron HCl (Zofran) 4 mg IVPUSH Q4H PRN PRN Reason: Nausea/Vomiting Ondansetron HCl (Zofran) 4 mg IVPUSH ONETIME PRN PRN Reason: Nausea/Vomiting Sodium Chloride (Saline Flush) 10 ml FLUSH ASDIRECTED PRN PRN Reason: Keep Vein Open Discontinued Medications Bupivacaine HCl (Marcaine 0.5%) Confirm Administered Dose 30 ml .ROUTE .STK-MED ONE Stop: 09/10/18 13:18 Citric Acid/Sodium Citrate (Bicitra Solution) 30 ml PO ONETIME ONE Stop: 09/10/18 12:20 Last Admin: 09/10/18 13:50 Dose: 30 ml Ephedrine Sulfate (Ephedrine Sulfate) 5 mg IVPUSH ASDIRECTED PRN PRN Reason: Hypotension Fentanyl (Sublimaze) Confirm Administered Dose 100 mcg .ROUTE .STK-MED ONE Stop: 09/10/18 13:40 Fentanyl/Bupivacaine HCl (Fentanyl/Bupivacaine/Ns 2 Mcg-0.125% 100 Ml) 100 ml EPIDUR ASDIRECTED [facility] Gentamicin Sulfate (Pharmacy To Dose - Gentamicin) 1 dose .XX ASDIRECTED [facility] Stop: 09/10/18 15:00 Cefazolin Sodium/Dextrose 2 gm (/ Premix) 50 mls @ 100 mls/hr IV ONETIME ONE Stop: 09/10/18 13:29 Lactated Ringer's (Ringers, Lactated) 1,000 mls @ 125 mls/hr IV ASDIRECTED [facility] Last Admin: 09/10/18 13:50 Dose: 999 mls/hr Clindamycin Phosphate 900 mg/ (Sodium Chloride) 106 mls @ 212 mls/hr IV ONETIME ONE Stop: 09/10/18 13:29 Gentamicin Sulfate 320 mg/ (Dextrose/Water) 108 mls @ 108 mls/hr IV ONETIME ONE Stop: 09/10/18 13:59 Lidocaine/Epinephrine (Xylocaine-Mpf 2%-Epi 1:200,000) Confirm Administered Dose 20 ml .ROUTE .STK-MED ONE Stop: 09/10/18 13:41 Metoclopramide HCl (Reglan) 10 mg IVPUSH ONETIME ONE Stop: 09/10/18 12:20 Last Admin: 09/10/18 13:50 Dose: 10 mg Nalbuphine HCl (Nubain) 10 mg IVPUSH Q2H PRN PRN Reason: pain Ondansetron HCl (Zofran) 4 mg IVPUSH ONETIME PRN PRN Reason: Nausea/Vomiting Sodium Bicarbonate (Sodium Bicarbonate 8.4%) Confirm Administered Dose 50 meq .ROUTE .STK-MED ONE Stop: 09/10/18 13:41 Sodium Chloride (Saline Flush) 10 ml FLUSH ASDIRECTED PRN PRN Reason: Keep Vein Open - Uterine Contractions Uterine Monitoring Mode: External [place] Contraction Frequency (min): 2-3 Contraction Duration (sec): 45-60 Contraction Intensity: Moderate to Strong Uterine Resting Tone: Soft - Monitoring Monitor Mode: Doppler/Auscultation Heart Rate (FHR) Baseline: 130 Heart Rate (FHR) Variability: Moderate (6-25 bmp) Accelerations: Present, 15x15 Decelerations: Prolonged (>2x10 min) (one prolonged deceleration with hypotension, none since) Strip Review: Category I - Vaginal Exam Dilation (cm): 4 Effacement (Percent): 90 Station: -2 Cervical Position: Anterior Sterile Vaginal Exam Performed By: Frank Dahl Vaginal Exam Comment: Artificial rupture of membranes with [place] performed. Return of clear fluid. Mother and infant tolerated well and without difficulty. - Labor Progress (Free Text) Labor Progress: Doing well. Continue pitocin for induction of labor Close monitoring of strip with non-reactive NST in the clinic. Monitor vital signs Continue epidural for anesthesia Anticipate vaginal delivery unless otherwise indicated. Frank Dahl MD 5:21 PM 09/10/2018
--- NOTE | 2018-09-10 22:08 | PCM.DEL ---
L & D Note - General Info Date of Service: 09/10/18 Mother's Due Date: 09/26/18 - Delivery Note Labor: Induced by ARM, Induced by Oxytocin Delivery Outcome: Livebirth Infant Delivery Method: Spontaneous Vaginal Delivery-Single Presentation: Right Occiput Anterior (LUCIO) Nuchal Cord: None Prep: Povidone-Iodine (Betadine Anesthesia Type: Epidural Amniotic Fluid Description: Clear Episiotomy Type: None Laceration: 2nd Degree, Perineal (midline, repaired 3-0 Vicryl) Suture type: Vicryl Suture size: 3-0 Placenta: Intact, Spontaneous Cord: 3 Vessels Estimated Blood Loss: 300 Resuscitation Needed: No Rinard: Bulb Syringe, Stimulated, Warmed, [place] Used Provider: Frank Dahl Score 1 min: 8 Score 5 min: 9 Second Stage Interventions: Reports: Pushing Effectively, Pushing, Stirrups/Leg Supports Delivery Comments (Free Text/Narrative):: Stage I: Jesus Mendoza was admitted for planned delivery after she was seen in the clinic and had nonreactive NST. While she was evaluated in the clinic she was noted to have a thad breech presentation with the head on the maternal right side. Patient presented on labor and delivery and had an NST where she had resolution of the tachycardia that was noted on the NST and she desired to have a external cephalic version performed. Risks and benefits of this procedure with possible trial labor after section and possible section were discussed with the patient and she desired to proceed with the external cephalic version. Consents were signed. She was taken back to operating room #1 and given an epidural for anesthesia. The external cephalic version was performed without difficulty and the was able to be turned into vertex presentation. Please see procedure note for full details. She was transferred back to labor and delivery and started on Pitocin for induction of labor. Her cervix was 3 cm dilated at this time. She was GBS negative. She had artificial rupture of membranes with clear fluid. She progressed to complete and pushing. Stage II: On 09/10/2018 she had a normal vaginal delivery after section of a live male at 2126. Apgars of 8 & 9. Weight of 3430 g (7 lbs 9 oz). Length of 21 inches. There was no nuchal cord. was delivered in LUCIO position. The cord was doubly clamped and cut by myself. was placed on mother's abdomen. Stage III: She had a spontaneous delivery of an intact placenta in [place] presentation. Three vessel cord. She was given pitocin and fundal massage. She had significant degree midline perineal laceration that was repaired in normal fashion with 3-0 Vicryl. Mom and baby were stable to recovery. EBL of 300 mL. Frank Dahl MD 10:07 PM 09/10/2018 Induction Criteria - Harper Score Harper Score Dilation: 3-4 cm Harper Score Effacement: >80% Harper Score 's Station: -3 Harper Score Consistency: Medium Harper Score Cervix Position: Anterior Harper Score Total: 8 Harper Score Presenting Part: Reports: Cephalic - Induction Gestational Age >/= 39 wks: No Medical Indication: Nonreactive NST with tachycardia with baseline of 170s Estimated Pelvis: Reports: Adequate Reassuring Monitoring Strip: Yes Absence of Tachy Systole: Yes - Augmentation Estimated Pelvis: Reports: Adequate Weight Estimated:: Reports: AGA Reassuring Monitoring Strip: Yes Absence of Tachy Systole: Yes - General Info Date of Service: 09/10/18 - Patient Data Vitals - Most Recent: Last Vital Signs Temp 37.6 C 09/10/18 12:19 Pulse 100 09/10/18 15:01 Resp 16 09/10/18 15:01 BP 114/63 09/10/18 15:01 Pulse Ox 100 09/10/18 15:01 Weight - Most Recent: 84.64 kg I&O - Last 24 Hours: Intake & Output 09/10/18 09/10/18 09/10/18 06:59 14:59 22:59 Intake Total 7000 Output Total 1000 Balance 6000 Lab Results Last 24 Hours: Laboratory Results - last 24 hr 09/10/18 09/10/18 09/10/18 Range/Units 13:14 13:14 13:14 WBC 10.83 H (3.98-10.04) K/mm3 RBC 3.59 L (3.98-5.22) M/mm3 Hgb 11.1 L (11.2-15.7) gm/L Hct 33.7 L (34.1-44.9) % MCV 93.9 (79.4-94.8) fl MCH 30.9 (25.6-32.2) pg MCHC 32.9 (32.2-35.5) g/dl RDW Std Deviation 46.5 H (36.4-46.3) fL Plt Count 291 (182-369) K/mm3 MPV 9.5 (9.4-12.3) fl Neut % (Auto) 80.0 H (34.0-71.1) % Lymph % (Auto) 14.4 L (19.3-51.7) % [place] % (Auto) 4.5 L (4.7-12.5) % Eos % (Auto) 0.6 L (0.7-5.8) Baso % (Auto) 0.2 (0.1-1.2) % Neut # (Auto) 8.67 H (1.56-6.13) K/mm3 Lymph # (Auto) 1.56 (1.18-3.74) K/mm3 [place] # (Auto) 0.49 H (0.24-0.36) K/mm3 Eos # (Auto) 0.06 (0.04-0.36) K/mm3 Baso # (Auto) 0.02 (0.01-0.08) K/mm3 RPR Non-reactive (NONREACTIVE) Blood Type O POSITIVE Gel Antibody Screen Negative Med Orders - Current: Current Medications Acetaminophen (Tylenol) 650 mg PO Q6H PRN PRN Reason: Pain (Mild 1-3) and fever Ephedrine Sulfate (Ephedrine Sulfate) 5 mg IVPUSH ASDIRECTED PRN PRN Reason: Hypotension Fentanyl/Bupivacaine HCl (Mlehefhq-Dhnbx-Jn 2 Mcg/Ml-0.125%) 100 ml EP ASDIRECTED JOSE Last Admin: 09/10/18 16:31 Dose: 100 ml Lactated Ringer's (Ringers, Lactated) 1,000 mls @ 100 mls/hr IV ASDIRECTED [facility] Last Admin: 09/10/18 20:35 Dose: 150 mls/hr Oxytocin/Lactated Ringer's (Pitocin In Lr 10 Units/1,000 Ml) 10 unit in 1,000 mls @ 100 mls/hr IV .CONTINUOUS JOSE Oxytocin/Lactated Ringer's (Pitocin In Lr 10 Units/1,000 Ml) 10 unit in 1,000 mls @ 12 mls/hr IV TITRATE JOSE; Protocol Last Titration: 09/10/18 21:27 Dose: 500 mls/hr Miscellaneous Information (Remove Patch) 1 ea TRDERM Q24H JOSE Nalbuphine HCl (Nubain) 10 mg IVPUSH Q2H PRN PRN Reason: Pain (moderate 4-6) Nicotine (Habitrol) 21 mg TRDERM DAILY [facility] Last Admin: 09/10/18 16:07 Dose: 21 mg Ondansetron HCl (Zofran) 4 mg IVPUSH Q4H PRN PRN Reason: Nausea/Vomiting Ondansetron HCl (Zofran) 4 mg IVPUSH ONETIME PRN PRN Reason: Nausea/Vomiting Sodium Chloride (Saline Flush) 10 ml FLUSH ASDIRECTED PRN PRN Reason: Keep Vein Open Discontinued Medications Bupivacaine HCl (Marcaine 0.5%) Confirm Administered Dose 30 ml .ROUTE .STK-MED ONE Stop: 09/10/18 13:18 Citric Acid/Sodium Citrate (Bicitra Solution) 30 ml PO ONETIME ONE Stop: 09/10/18 12:20 Last Admin: 09/10/18 13:50 Dose: 30 ml Ephedrine Sulfate (Ephedrine Sulfate) 5 mg IVPUSH ASDIRECTED PRN PRN Reason: Hypotension Fentanyl (Sublimaze) Confirm Administered Dose 100 mcg .ROUTE .STK-MED ONE Stop: 09/10/18 13:40 Fentanyl/Bupivacaine HCl (Fentanyl/Bupivacaine/Ns 2 Mcg-0.125% 100 Ml) 100 ml EPIDUR ASDIRECTED [facility] Gentamicin Sulfate (Pharmacy To Dose - Gentamicin) 1 dose .XX ASDIRECTED [facility] Stop: 09/10/18 15:00 Cefazolin Sodium/Dextrose 2 gm (/ Premix) 50 mls @ 100 mls/hr IV ONETIME ONE Stop: 09/10/18 13:29 Last Admin: 09/10/18 19:16 Dose: Not Given Lactated Ringer's (Ringers, Lactated) 1,000 mls @ 125 mls/hr IV ASDIRECTED [facility] Last Admin: 09/10/18 13:50 Dose: 999 mls/hr Clindamycin Phosphate 900 mg/ (Sodium Chloride) 106 mls @ 212 mls/hr IV ONETIME ONE Stop: 09/10/18 13:29 Last Admin: 09/10/18 19:15 Dose: Not Given Gentamicin Sulfate 320 mg/ (Dextrose/Water) 108 mls @ 108 mls/hr IV ONETIME ONE Stop: 09/10/18 13:59 Last Admin: 09/10/18 19:16 Dose: Not Given Lidocaine/Epinephrine (Xylocaine-Mpf 2%-Epi 1:200,000) Confirm Administered Dose 20 ml .ROUTE .STK-MED ONE Stop: 09/10/18 13:41 Metoclopramide HCl (Reglan) 10 mg IVPUSH ONETIME ONE Stop: 09/10/18 12:20 Last Admin: 09/10/18 13:50 Dose: 10 mg Nalbuphine HCl (Nubain) 10 mg IVPUSH Q2H PRN PRN Reason: pain Ondansetron HCl (Zofran) 4 mg IVPUSH ONETIME PRN PRN Reason: Nausea/Vomiting Sodium Bicarbonate (Sodium Bicarbonate 8.4%) Confirm Administered Dose 50 meq .ROUTE .STK-MED ONE Stop: 09/10/18 13:41 Sodium Chloride (Saline Flush) 10 ml FLUSH ASDIRECTED PRN PRN Reason: Keep Vein Open - Problem List & Annotations (1) 37 weeks gestation of SNOMED Code(s): 79287263 Code(s): Z3A.37 - 37 WEEKS GESTATION OF Status: Acute Current Visit: Yes (2) Non-reassuring electronic monitoring tracing SNOMED Code(s): 716686956 Code(s): O76 - ABNLT IN HEART RATE AND RHYTHM COMP LABOR AND DELIVERY Status: Acute Current Visit: Yes (3) Breech presentation SNOMED Code(s): 4220304 Code(s): O32.1XX0 - MATERNAL CARE FOR BREECH PRESENTATION, UNSP Status: Acute Current Visit: Yes (4) History of delivery, currently SNOMED Code(s): 655401616, 318327916 Code(s): O34.219 - MATERNAL CARE FOR UNSP TYPE SCAR FROM PREVIOUS DEL Status: Acute Current Visit: Yes (5) History of section SNOMED Code(s): 708973713 Code(s): Z98.891 - HISTORY OF UTERINE SCAR FROM PREVIOUS SURGERY Status: Acute Current Visit: Yes (6) History of delivery SNOMED Code(s): 895797193 Code(s): Z87.51 - PERSONAL HISTORY OF PRE-TERM LABOR Status: Acute Current Visit: Yes (7) History of delivery, currently SNOMED Code(s): 604171131, 483883509 Code(s): O09.219 - SUPRVSN OF PREG W HISTORY OF PRE-TERM LABOR, UNSP TRIMESTER Status: Acute Current Visit: Yes (8) History of placental abruption SNOMED Code(s): 982797087, 411268081 Code(s): Z87.59 - PERSONAL HISTORY OF COMP OF PREG, CHLDBRTH AND THE PUERP Status: Acute Current Visit: Yes (9) Tobacco use during SNOMED Code(s): 235126107098065 Code(s): O99.330 - SMOKING (TOBACCO) COMPLICATING , UNSP TRIMESTER Status: Acute Current Visit: Yes (10) Anxiety SNOMED Code(s): 03072817 Code(s): F41.9 - ANXIETY DISORDER, UNSPECIFIED Status: Acute Current Visit: Yes (11) Successful external cephalic version SNOMED Code(s): 39542168 Code(s): UFQ7696 - Status: Acute Current Visit: Yes (12) Vaginal delivery following previous section, delivered SNOMED Code(s): 556522264 Code(s): O34.219 - MATERNAL CARE FOR UNSP TYPE SCAR FROM PREVIOUS DEL Status: Acute Current Visit: Yes (13) Vaginal delivery SNOMED Code(s): 026449410 Code(s): O80 - ENCOUNTER FOR FULL-TERM UNCOMPLICATED DELIVERY Status: Acute Current Visit: Yes (14) Second degree perineal laceration during delivery SNOMED Code(s): 9355294 Code(s): O70.1 - SECOND DEGREE PERINEAL LACERATION DURING DELIVERY Status: Acute Current Visit: Yes - Problem List Review Problem List Initiated/Reviewed/Updated: Yes - My Orders Last 24 Hours: My Active Orders 09/10/18 12:19 Heart Tones [RC] PER UNIT ROUTINE Resuscitation Status Routine 09/10/18 15:10 Patient Status [ADT] Routine Activity as Tolerated [RC] PFP Communication Order [RC] ASDIRECTED Notify Provider Vital Signs [RC] PRN Notify Provider [RC] PFP Notify Provider [RC] PRN Peripheral IV Care [RC] Q2HR Urinary Catheter Assessment [RC] ASDIRECTED Vital Signs [RC] PER UNIT ROUTINE Acetaminophen [Tylenol] 650 mg PO Q6H PRN Nalbuphine [Nubain] 10 mg IVPUSH Q2H PRN Ondansetron [Zofran] 4 mg IVPUSH Q4H PRN Sodium Chloride 0.9% [Saline Flush] 10 ml FLUSH ASDIRECTED PRN Electronic Heart Tones Ext w TOCO [WOMSER] Routine Electronic Heart Tones Internal [WOMSER] Per Unit Routine Peripheral IV Insertion Adult [OM.PC] Routine 09/10/18 15:15 Lactated Ringers [Ringers, Lactated] 1,000 ml IV ASDIRECTED Nicotine [Habitrol] 21 mg TRDERM DAILY Oxytocin/Lactated Ringers [Pitocin in LR 10 Units/1,000 ML] 10 unit in 1,000 ml IV .CONTINUOUS Oxytocin/Lactated Ringers [Pitocin in LR 10 Units/1,000 ML] 10 unit in 1,000 ml IV TITRATE 09/10/18 21:54 Patient Status Manage Transfer [TRANSFER] Routine 09/10/18 Lunch Regular Diet [DIET] 09/11/18 15:30 Remove Patch 1 ea TRDERM Q24H - Plan Plan:: Admit to inpatient following vaginal delivery after section Continue Pitocin per unit protocol following delivery of placenta and lactated Ringer's until tolerating regular diet Regular diet Vitals per unit routine Ibuprofen and Tylenol for pain control Assist with breast-feeding as needed Continue to monitor lochia Anticipate discharge home on day #1 or #2 Frank Dahl MD 10:07 PM 09/10/2018
[2018-09-10] MEDS ORDERED: Hydrocortisone Acetate 25 MG Supp RECTAL PRN (22:10)
[2018-09-10] MEDS ORDERED: Magnesium Hydroxide 400 MG/5 ML Susp 30 ML Cup PO PRN (22:10)
[2018-09-10] MEDS ORDERED: Lanolin 100% Cream 7 GM Tube TOP PRN (22:10)
[2018-09-10] MEDS ORDERED: Docusate Sodium 100 MG Cap PO PRN (22:10)
[2018-09-10] MEDS ORDERED: Witch Hazel Medicated Pads 100/Jar TOP PRN (22:10)
[2018-09-10] MEDS ORDERED: Benzocaine/Menthol 20%-0.5% Spray 56 GM Canister TOP PRN (22:10)
[2018-09-10] MEDS: Ibuprofen 600 MG Tab PO PRN (22:37)
[2018-09-11] MEDS: Acetaminophen 325 MG Tab PO PRN ×4 (01:43→19:10)
[2018-09-11] MEDS: Ibuprofen 600 MG Tab PO PRN ×3 (04:46→17:11)
--- NOTE | 2018-09-11 08:38 | PCM.SN ---
- Free Text/Narrative Note: Post Progress Note PPD # 1 Subjective: Doing well overall. Ambulating without difficulty. Lochia minimal. Voiding without difficulty. Tolerating regular diet without nausea or vomiting. Pain improved with oral medications. She reports that she has moderate to severe amount of uterine cramping when she uses the restroom or with breast-feeding. Breast feeding with some difficulty with the infant having difficulty latching due to drowsiness. Objective: Vitals: Vital Signs - 24 hr 09/10/18 09/10/18 09/10/18 12:19 13:27 15:01 Temperature Temperature [ 37.6 C Temporal] Pulse, 100 Peripheral Pulse, 103 H Peripheral [ Brachial] Respiratory 16 16 16 Rate Blood Pressure 114/63 Blood Pressure 143/87 H [Right Upper] O2 Sat by Pulse 97 97 100 Oximetry 09/11/18 09/11/18 00:58 04:59 Temperature 36.7 C 36.7 C Temperature [ Temporal] Pulse, 96 75 Peripheral Pulse, Peripheral [ Brachial] Respiratory 16 14 Rate Blood Pressure 132/85 123/81 Blood Pressure [Right Upper] O2 Sat by Pulse 98 98 Oximetry Physical Exam General: Alert and oriented, no acute distress Lungs: Clear to auscultation bilaterally Heart: Regular rate and rhythm Abdomen: Soft, minimal appropriate tenderness, non-distended, fundus midline, nontender, and at the umbilicus Extremities: Trace edema in bilateral lower extremities to lower shins ASSESSMENT: 28-year-old female s/p normal vaginal delivery after section PPD #1, complicated by nonreactive NST with baseline in the 170s in the clinic leading to induction, breech presentation prior to successful external cephalic version, history of section, history of delivery, GERD and , tobacco use in , anxiety, bicornuate uterus PLAN: Doing well Breast feeding with some difficulty with difficulty latching due to drowsiness. Assist as needed Lochia minimal. Continue to monitor for appropriate lochia. Continue routine care Recommend for patient to continue with use of Tylenol and ibuprofen for uterine cramping. Discussed that this is likely due to release of oxytocin as a result of breast-feeding. Also recommend for her to use heating pad and to try to increase ambulation throughout the day as this can also be beneficial. Patient states understanding. Anticipate discharge home tomorrow Frank Dahl MD 8:37 AM 09/11/2018
[2018-09-11] MEDS ORDERED: Prenatal Multivitamin with Calcium/Folic Acid/Iron Tab PO SCH (09:00)
[2018-09-11] MEDS: Nicotine 21 MG/24 Hr Patch TRDERM SCH (10:35)
--- NOTE | 2018-09-11 19:00 | PCM.DCSUM1 ---
Discharge Summary - Hospital Course Free Text/Narrative:: Stage I: Jesus Mendoza was admitted for planned delivery after she was seen in the clinic and had nonreactive NST. While she was evaluated in the clinic she was noted to have a thad breech presentation with the head on the maternal right side. Patient presented on labor and delivery and had an NST where she had resolution of the tachycardia that was noted on the NST and she desired to have a external cephalic version performed. Risks and benefits of this procedure with possible trial labor after section and possible section were discussed with the patient and she desired to proceed with the external cephalic version. Consents were signed. She was taken back to operating room #1 and given an epidural for anesthesia. The external cephalic version was performed without difficulty and the infant was able to be turned into vertex presentation. Please see procedure note for full details. She was transferred back to labor and delivery and started on Pitocin for induction of labor. Her cervix was 3 cm dilated at this time. She was GBS negative. She had artificial rupture of membranes with clear fluid. She progressed to complete and pushing. Stage II: On 09/10/2018 she had a normal vaginal delivery after section of a live male at 2126. Apgars of 8 & 9. Weight of 3430 g (7 lbs 9 oz). Length of 21 inches. There was no nuchal cord. Infant was delivered in LUCIO position. The cord was doubly clamped and cut by myself. was placed on mother's abdomen. Stage III: She had a spontaneous delivery of an intact placenta in [place] presentation. Three vessel cord. She was given pitocin and fundal massage. She had significant degree midline perineal laceration that was repaired in normal fashion with 3-0 Vicryl. Mom and baby were stable to recovery. EBL of 300 mL. HPI Initial Comments: Stage I: Jesus Mendoza was admitted for planned delivery after she was seen in the clinic and had nonreactive NST. While she was evaluated in the clinic she was noted to have a thad breech presentation with the head on the maternal right side. Patient presented on labor and delivery and had an NST where she had resolution of the tachycardia that was noted on the NST and she desired to have a external cephalic version performed. Risks and benefits of this procedure with possible trial labor after section and possible section were discussed with the patient and she desired to proceed with the external cephalic version. Consents were signed. She was taken back to operating room #1 and given an epidural for anesthesia. The external cephalic version was performed without difficulty and the was able to be turned into vertex presentation. Please see procedure note for full details. She was transferred back to labor and delivery and started on Pitocin for induction of labor. Her cervix was 3 cm dilated at this time. She was GBS negative. She had artificial rupture of membranes with clear fluid. She progressed to complete and pushing. Stage II: On 09/10/2018 she had a normal vaginal delivery after section of a live male at 2126. Apgars of 8 & 9. Weight of 3430 g (7 lbs 9 oz). Length of 21 inches. There was no nuchal cord. Infant was delivered in LUCIO position. The cord was doubly clamped and cut by myself. was placed on mother's abdomen. Stage III: She had a spontaneous delivery of an intact placenta in Ambrose presentation. Three vessel cord. She was given pitocin and fundal massage. She had significant degree midline perineal laceration that was repaired in normal fashion with 3-0 Vicryl. Mom and baby were stable to recovery. EBL of 300 mL. Brief History: Stage I: Jesus Mendoza was admitted for planned delivery after she was seen in the clinic and had nonreactive NST. While she was evaluated in the clinic she was noted to have a thad breech presentation with the head on the maternal right side. Patient presented on labor and delivery and had an NST where she had resolution of the tachycardia that was noted on the NST and she desired to have a external cephalic version performed. Risks and benefits of this procedure with possible trial labor after section and possible section were discussed with the patient and she desired to proceed with the external cephalic version. Consents were signed. She was taken back to operating room #1 and given an epidural for anesthesia. The external cephalic version was performed without difficulty and the was able to be turned into vertex presentation. Please see procedure note for full details. She was transferred back to labor and delivery and started on Pitocin for induction of labor. Her cervix was 3 cm dilated at this time. She was GBS negative. She had artificial rupture of membranes with clear fluid. She progressed to complete and pushing. Stage II: On 09/10/2018 she had a normal vaginal delivery after section of a live male at 2126. Apgars of 8 & 9. Weight of 3430 g (7 lbs 9 oz). Length of 21 inches. There was no nuchal cord. was delivered in LUCIO position. The cord was doubly clamped and cut by myself. Infant was placed on mother's abdomen. Stage III: She had a spontaneous delivery of an intact placenta in Ambrose presentation. Three vessel cord. She was given pitocin and fundal massage. She had significant degree midline perineal laceration that was repaired in normal fashion with 3-0 Vicryl. Mom and baby were stable to recovery. EBL of 300 mL. Diagnosis: Stroke: No - Discharge Data Discharge Date: 09/11/18 Discharge Disposition: Home, Self-Care 01 Condition: Good - Discharge Diagnosis/Problem(s) (1) 37 weeks gestation of SNOMED Code(s): 80635608 ICD Code: Z3A.37 - 37 WEEKS GESTATION OF Status: Acute Current Visit: Yes (2) Non-reassuring electronic monitoring tracing SNOMED Code(s): 667191315 ICD Code: O76 - ABNLT IN HEART RATE AND RHYTHM COMP LABOR AND DELIVERY Status: Acute Current Visit: Yes (3) Breech presentation SNOMED Code(s): 3166263 ICD Code: O32.1XX0 - MATERNAL CARE FOR BREECH PRESENTATION, UNSP Status: Acute Current Visit: Yes (4) History of delivery, currently SNOMED Code(s): 507945482, 725952540 ICD Code: O34.219 - MATERNAL CARE FOR UNSP TYPE SCAR FROM PREVIOUS DEL Status: Acute Current Visit: Yes (5) History of section SNOMED Code(s): 589007355 ICD Code: Z98.891 - HISTORY OF UTERINE SCAR FROM PREVIOUS SURGERY Status: Acute Current Visit: Yes (6) History of delivery SNOMED Code(s): 781851032 ICD Code: Z87.51 - PERSONAL HISTORY OF PRE-TERM LABOR Status: Acute Current Visit: Yes (7) History of delivery, currently SNOMED Code(s): 673230579, 207900400 ICD Code: O09.219 - SUPRVSN OF PREG W HISTORY OF PRE-TERM LABOR, UNSP TRIMESTER Status: Acute Current Visit: Yes (8) History of placental abruption SNOMED Code(s): 976501711, 139983708 ICD Code: Z87.59 - PERSONAL HISTORY OF COMP OF PREG, CHLDBRTH AND THE PUERP Status: Acute Current Visit: Yes (9) Tobacco use during SNOMED Code(s): 892071311346371 ICD Code: O99.330 - SMOKING (TOBACCO) COMPLICATING , UNSP TRIMESTER Status: Acute Current Visit: Yes (10) Anxiety SNOMED Code(s): 63142227 ICD Code: F41.9 - ANXIETY DISORDER, UNSPECIFIED Status: Acute Current Visit: Yes (11) Successful external cephalic version SNOMED Code(s): 26249453 ICD Code: [id number] - Status: Acute Current Visit: Yes (12) Vaginal delivery following previous section, delivered SNOMED Code(s): 287994495 ICD Code: O34.219 - MATERNAL CARE FOR UNSP TYPE SCAR FROM PREVIOUS DEL Status: Acute Current Visit: Yes (13) Vaginal delivery SNOMED Code(s): 669013516 ICD Code: O80 - ENCOUNTER FOR FULL-TERM UNCOMPLICATED DELIVERY Status: Acute Current Visit: Yes (14) Second degree perineal laceration during delivery SNOMED Code(s): 3278299 ICD Code: O70.1 - SECOND DEGREE PERINEAL LACERATION DURING DELIVERY Status : Acute Current Visit: Yes - Patient Summary/Data Operative Procedure(s) Performed: External cephalic version Complications: None Consults: None Hospital Course: Jesus Mendoza was admitted for planned delivery after she was seen in the clinic and had a nonreactive NST. While she was evaluated in the clinic she was noted to have a thad breech presentation with head on the maternal right side. Patient presented on labor and delivery and numbness T where she had resolution of the tachycardia that was noted on NST and she desired to have an external cephalic version performed. She was taken back to the operating room and given a epidural for anesthesia. She then had a successful external cephalic version performed. She was transferred back to labor and delivery and started on Pitocin for induction of labor. On admission her cervix was dilated to 3 cm. She was GBS negative. She was given an epidural for anesthesia. She had artificial rupture of membranes with clear fluid. She progressed to complete and began pushing. On 09/10/2018 she had a normal vaginal delivery after section of a live male infant at 2126. Apgars of 8 and 9. Weight of 3430 g (7 lbs. 9 oz.). Her course was uneventful. Her pain was well controlled and she had minimal lochia. She was ambulating, tolerating a regular diet and voiding normally. She was breast feeding. She was afebrile and her hematocrit was 33.7 on admission. She desired to be discharged home on the evening of PPD #1. Her blood type is O+. - Patient Instructions Diet: Regular Diet as Tolerated Activity: Apply Ice, As Tolerated Activity, Other: Nothing in the vagina for 6 weeks Driving: May Drive Today Showering/Bathing: May Shower Notify Provider of: Fever, Increased Pain, Swelling and Redness, Drainage, Nausea and/or Vomiting Other/Special Instructions: Please contact your physician's office if you have heavy vaginal bleeding enough to soak a pad in less than an hour for several hours. Monitor for any signs of an infection in the breasts with severe pain or redness of the breast. - Discharge Plan *PRESCRIPTION DRUG MONITORING PROGRAM REVIEWED*: Not Applicable *COPY OF PRESCRIPTION DRUG MONITORING REPORT IN PATIENT VANE: Not Applicable Home Medications: Home Meds PNV95/Ferrous Fumarate/FA [ Vitamin Tablet] 1 tab PO DAILY 09/10/18 [ History] Acetaminophen [Tylenol] 650 mg PO Q6H PRN tablet 09/11/18 [Rx] Benzocaine/Menthol [Dermoplast Pain Relief [place]] 1 spray TOP ASDIRECTED PRN canister 09/11/18 [Rx] Docusate Sodium [Colace] 100 mg PO BID PRN cap 09/11/18 [Rx] Hydrocortisone Acetate [Anucort-HC] 25 mg RECTAL BID PRN supp 09/11/18 [Rx] Ibuprofen [Motrin] 600 mg PO Q6H PRN tablet 09/11/18 [Rx] Lanolin [Lansinoh HPA] 1 applic TOP ASDIRECTED PRN tube 09/11/18 [Rx] Witch Arminda [Tucks] 1 pad TOP ASDIRECTED PRN pad 09/11/18 [Rx] Patient Handouts: Vaginal Delivery, Care After, Care of a Perineal Tear, Steps to Quit Smoking Referrals: Frank Dahl MD [Primary Care Provider] - (Follow-up in 2-3 weeks for routine visit.) - Discharge Summary/Plan Comment DC Time >30 min.: No - Patient Data Vitals - Most Recent: Last Vital Signs Temp 37.2 C 09/11/18 16:42 Pulse 79 09/11/18 16:42 Resp 16 09/11/18 16:42 BP 120/69 09/11/18 16:42 Pulse Ox 100 09/11/18 16:42 Weight - Most Recent: 84.64 kg I&O - Last 24 hours: Intake & Output 09/11/18 09/11/18 09/11/18 06:59 14:59 22:59 Intake Total 375 Balance 375 Med Orders - Current: Current Medications Acetaminophen (Tylenol) 650 mg PO Q6H PRN PRN Reason: mild pain or fever Last Admin: 09/11/18 14:28 Dose: 650 mg Benzocaine/Menthol (Dermoplast Pain Relief [place]) 0 gm TOP ASDIRECTED PRN PRN Reason: Perineal Comfort Measure Last Admin: 09/10/18 22:36 Dose: 1 applic Docusate Sodium (Colace) 100 mg PO BID PRN PRN Reason: Constipation Emollient Ointment (Lansinoh Hpa) 0 gm TOP ASDIRECTED PRN PRN Reason: Sore Nipples Hydrocortisone Acetate (Anucort-Hc) 25 mg RECTAL BID PRN PRN Reason: Hemorrhoid pain Oxytocin/Lactated Ringer's (Pitocin In Lr 10 Units/1,000 Ml) 10 unit in 1,000 mls @ 100 mls/hr IV TITRATE JOSE; Protocol Ibuprofen (Motrin) 600 mg PO Q6H PRN PRN Reason: Mild pain or fever Last Admin: 09/11/18 17:11 Dose: 600 mg Magnesium Hydroxide (Milk Of Magnesia) 30 ml PO BEDTIME PRN PRN Reason: Constipation Nicotine (Habitrol) 21 mg TRDERM DAILY [facility] Last Admin: 09/11/18 10:35 Dose: Not Given Prenat Multivit/Floriculture Professor/Iron/Folic Ac ( Plus Iron) 1 each PO DAILY JOSE Last Admin: 09/11/18 08:15 Dose: 1 each Witch Arminda (Tucks) 1 pad TOP ASDIRECTED PRN PRN Reason: Hemorrhoid pain Last Admin: 09/10/18 22:36 Dose: 1 applic Discontinued Medications Acetaminophen (Tylenol) 650 mg PO Q6H PRN PRN Reason: Pain (Mild 1-3) and fever Bupivacaine HCl (Marcaine 0.5%) Confirm Administered Dose 30 ml .ROUTE .[facility] ONE Stop: 09/10/18 13:18 Citric Acid/Sodium Citrate (Bicitra Solution) 30 ml PO ONETIME ONE Stop: 09/10/18 12:20 Last Admin: 09/10/18 13:50 Dose: 30 ml Ephedrine Sulfate (Ephedrine Sulfate) 5 mg IVPUSH ASDIRECTED PRN PRN Reason: Hypotension Ephedrine Sulfate (Ephedrine Sulfate) 5 mg IVPUSH ASDIRECTED PRN PRN Reason: Hypotension Fentanyl (Sublimaze) Confirm Administered Dose 100 mcg .ROUTE .[facility] ONE Stop: 09/10/18 13:40 Fentanyl/Bupivacaine HCl (Fentanyl/Bupivacaine/Ns 2 Mcg-0.125% 100 Ml) 100 ml EPIDUR ASDIRECTED [facility] Fentanyl/Bupivacaine HCl (Ykyikqvl-Iqexs-Pc 2 Mcg/Ml-0.125%) 100 ml EP ASDIRECTED [facility] Last Admin: 09/10/18 16:31 Dose: 100 ml Gentamicin Sulfate (Pharmacy To Dose - Gentamicin) 1 dose .XX ASDIRECTED [facility] Stop: 09/10/18 15:00 Cefazolin Sodium/Dextrose 2 gm (/ Premix) 50 mls @ 100 mls/hr IV ONETIME ONE Stop: 09/10/18 13:29 Last Admin: 09/10/18 19:16 Dose: Not Given Lactated Ringer's (Ringers, Lactated) 1,000 mls @ 125 mls/hr IV ASDIRECTED [facility] Last Admin: 09/10/18 13:50 Dose: 999 mls/hr Clindamycin Phosphate 900 mg/ (Sodium Chloride) 106 mls @ 212 mls/hr IV ONETIME ONE Stop: 09/10/18 13:29 Last Admin: 09/10/18 19:15 Dose: Not Given Gentamicin Sulfate 320 mg/ (Dextrose/Water) 108 mls @ 108 mls/hr IV ONETIME ONE Stop: 09/10/18 13:59 Last Admin: 09/10/18 19:16 Dose: Not Given Lactated Ringer's (Ringers, Lactated) 1,000 mls @ 100 mls/hr IV ASDIRECTED JOSE Last Admin: 09/10/18 20:35 Dose: 150 mls/hr Oxytocin/Lactated Ringer's (Pitocin In Lr 10 Units/1,000 Ml) 10 unit in 1,000 mls @ 100 mls/hr IV .CONTINUOUS JOSE Oxytocin/Lactated Ringer's (Pitocin In Lr 10 Units/1,000 Ml) 10 unit in 1,000 mls @ 12 mls/hr IV TITRATE JOSE; Protocol Last Titration: 09/10/18 21:27 Dose: 500 mls/hr Lidocaine/Epinephrine (Xylocaine-Mpf 2%-Epi 1:200,000) Confirm Administered Dose 20 ml .ROUTE .[facility] ONE Stop: 09/10/18 13:41 Metoclopramide HCl (Reglan) 10 mg IVPUSH ONETIME ONE Stop: 09/10/18 12:20 Last Admin: 09/10/18 13:50 Dose: 10 mg Miscellaneous Information (Remove Patch) 1 ea TRDERM Q24H JOSE Nalbuphine HCl (Nubain) 10 mg IVPUSH Q2H PRN PRN Reason: pain Nalbuphine HCl (Nubain) 10 mg IVPUSH Q2H PRN PRN Reason: Pain (moderate 4-6) Ondansetron HCl (Zofran) 4 mg IVPUSH ONETIME PRN PRN Reason: Nausea/Vomiting Ondansetron HCl (Zofran) 4 mg IVPUSH Q4H PRN PRN Reason: Nausea/Vomiting Ondansetron HCl (Zofran) 4 mg IVPUSH ONETIME PRN PRN Reason: Nausea/Vomiting Sodium Bicarbonate (Sodium Bicarbonate 8.4%) Confirm Administered Dose 50 meq .ROUTE .[facility] ONE Stop: 09/10/18 13:41 Sodium Chloride (Saline Flush) 10 ml FLUSH ASDIRECTED PRN PRN Reason: Keep Vein Open Sodium Chloride (Saline Flush) 10 ml FLUSH ASDIRECTED PRN PRN Reason: Keep Vein Open
[2018-09-11 23:00] VITALS: BP 117/67
== END 2018-09-11 22:30 | disposition home or self-care (01) | DRG 807 ==
LOC: INTOOBSV 12:01 → JD.OB 12:01 → OBSVTOIN 21:26 → JD.OB 21:27
PROVIDERS: ADMIT Obstetrics & Gynecology; ATTEND Obstetrics & Gynecology
PROC: 0KQM0ZZ Repair Perineum Muscle, Open Approach (ICD-10-PCS; principal; 2018-09-10)
PROC: 10E0XZZ Delivery of Products of Conception, External Approach (ICD-10-PCS; principal; 2018-09-10)
PROC: 3E033VJ Introduction of Other Hormone into Peripheral Vein, Percutaneous Approach (ICD-10-PCS; principal; 2018-09-10)
PROC: 10S0XZZ Reposition Products of Conception, External Approach (ICD-10-PCS; principal; 2018-09-10)
PROC: 10907ZC Drainage of Amniotic Fluid, Therapeutic from Products of Conception, Via Natural or Artificial Opening (ICD-10-PCS; principal; 2018-09-10)
PROC: 00HU33Z Insertion of Infusion Device into Spinal Canal, Percutaneous Approach (ICD-10-PCS; 2018-09-10)
PROC: 3E0R3BZ Introduction of Anesthetic Agent into Spinal Canal, Percutaneous Approach (ICD-10-PCS; 2018-09-10)
DX: O32.1XX0 Maternal care for breech presentation, not applicable or unspecified (principal); Z37.0 Single live birth; Z3A.37 37 weeks gestation of pregnancy; O76 Abnormality in fetal heart rate and rhythm complicating labor and delivery; O34.219 Maternal care for unspecified type scar from previous cesarean delivery; N85.8 Other specified noninflammatory disorders of uterus; O99.334 Smoking (tobacco) complicating childbirth; O70.1 Second degree perineal laceration during delivery; O99.344 Other mental disorders complicating childbirth; O99.62 Diseases of the digestive system complicating childbirth; F41.9 Anxiety disorder, unspecified; O34.03 Maternal care for unspecified congenital malformation of uterus, third trimester; Q51.3 Bicornate uterus; K21.9 Gastro-esophageal reflux disease without esophagitis; Z88.0 Allergy status to penicillin; Z88.8 Allergy status to other drugs, medicaments and biological substances; Z88.1 Allergy status to other antibiotic agents; Z91.040 Latex allergy status; Z87.11 Personal history of peptic ulcer disease; F17.210 Nicotine dependence, cigarettes, uncomplicated
CPT/HCPCS: 36415; 51701; 51702; 59025; 59409; 85025; 86592; 86850; 86900; 86901; A9270-GY; J2590; J2765; J3010; J3490; J7120

== ENCOUNTER 2018-11-20 07:45 | Day surgery (SDC) | payer MEDICAID ==
[~2018-11-20 07:45] MED LIST: Lactated Ringers 1,000 ML IV SCH; Lidocaine 0.5% 50 ML SDV ONE; Lidocaine 1% 2 ML ONE; Lidocaine 1%/Sod Bicarbonate in NS 8.4% 1 ML Syringe IDERM PRN; Midazolam 1 MG/ML 2 ML SDV ONE; Propofol 200 MG/20 ML SDV ONE; Sodium Bicarbonate 8.4% 50 MEQ/50 ML SDV ONE; Sodium Chloride 0.9% 10 ML Syringe FLUSH PRN; ceFAZolin 1 GM Vial ONE; fentaNYL 100 MCG/2 ML SDV ONE
[2018-11-20] MEDS ORDERED: Bupivacaine 0.25% 10 ML SDV ONE (09:07)
--- NOTE | 2018-11-20 10:07 | PCM.PREANE ---
Preanesthetic Assessment - Anesthesia/Transfusion/Family Hx Anesthesia History: Prior Anesthesia Without Reaction Family History of Anesthesia Reaction: No Transfusion History: No Prior Transfusion(s) - Review of Systems General: No Symptoms Pulmonary: No Symptoms Cardiovascular: No Symptoms Gastrointestinal: No Symptoms Neurological: No Symptoms - Physical Assessment NPO Status Date: 11/19/18 NPO Status Time: 21:30 Pulse: 73 O2 Sat by Pulse Oximetry: 97 Respiratory Rate: 16 Blood Pressure: 133/76 Temperature: 97.0 C Vital Signs: Last Vital Signs Temp 36.7 C 11/20/18 08:05 Pulse 73 11/20/18 08:05 Resp 16 11/20/18 08:05 BP 113/76 11/20/18 08:05 Pulse Ox 97 11/20/18 08:05 Height: 1.57 m Weight: 70.307 kg ASA Class: 2 Mental Status: Alert & Oriented x3 Airway Class: Mallampati = 1 Dentition: Reports: Normal Dentition Thyro-Mental Finger Breadths: 3 Mouth Opening Finger Breadths: 3 ROM/Head Extension: Full Lungs: Clear to Auscultation, Normal Respiratory Effort Cardiovascular: Regular Rate, Regular Rhythm - Allergies Allergies/Adverse Reactions: Allergies Allergy/AdvReac Type Severity Reaction Status Date / Time diphenhydramine HCl Allergy Hives Verified 11/19/18 11:56 [From Benadryl] latex Allergy Swelling Verified 11/19/18 11:56 Penicillins Allergy Airway Verified 11/19/18 11:56 Tightness tetracycline [Tetracycline] Allergy Airway Verified 11/19/18 11:56 Tightness tramadol Allergy Hives Verified 11/19/18 11:56 - Acknowledgements Anesthesia Type Planned: MAC Pt an Appropriate Candidate for the Planned Anesthesia: Yes Alternatives and Risks of Anesthesia Discussed w Pt/Guardian: Yes Pt/Guardian Understands and Agrees with Anesthesia Plan: Yes PreAnesthesia Questionnaire - Past Health History Medical/Surgical History: Denies Medical/Surgical History HEENT History: Reports: Impaired Vision, Other (See Below) Other HEENT History: wears glasses Cardiovascular History: Reports: None Respiratory History: Reports: None Gastrointestinal History: Reports: PUD Genitourinary History: Reports: None 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 (Approximate): Other (See Below) (prenancy test 11/19/18 negative) Other OB/BYN History: Musculoskeletal History: Reports: Other (See Below) Other Musculoskeletal History: left wrist ganglion cyst Neurological History: Reports: None Psychiatric History: Reports: None Endocrine/Metabolic History: Reports: None Hematologic History: Reports: None Immunologic History: Reports: None Oncologic (Cancer) History: Reports: None Dermatologic History: Reports: None - Infectious Disease History Infectious Disease History: Reports: None - Past Surgical History Head Surgeries/Procedures: Reports: None Cardiovascular Surgical History: Reports: None Respiratory Surgical History: Reports: None GI Surgical History: Reports: EGD Female Surgical History: Reports: Section Endocrine Surgical History: Reports: None Neurological Surgical History: Reports: None Musculoskeletal Surgical History: Reports: None Oncologic Surgical History: Reports: Bone Marrow Transplant Dermatological Surgical History: Reports: None - SUBSTANCE USE Smoking Status *Q: Current Every Day Smoker Recreational Drug Use History: No - HOME MEDS Home Medications: Home Meds PNV95/Ferrous Fumarate/FA [ Vitamin Tablet] 1 tab PO DAILY 09/10/18 [ History] - CURRENT (IN HOUSE) MEDS Current Meds: Current Medications Lactated Ringer's (Ringers, Lactated) 1,000 mls @ 125 mls/hr IV ASDIRECTED JOSE Stop: 11/20/18 23:00 Last Admin: 11/20/18 08:20 Dose: 125 mls/hr Lidocaine/Sodium Bicarbonate (Buffered Lidocaine 1% In Ns 8.4%) 0.25 ml IDERM ONETIME PRN PRN Reason: Prior to IV Start Stop: 11/20/18 18:00 Last Admin: 11/20/18 08:20 Dose: 0.25 ml Sodium Chloride (Saline Flush) 10 ml FLUSH ASDIRECTED PRN PRN Reason: Keep Vein Open Stop: 11/20/18 18:00 Discontinued Medications Bupivacaine HCl (Sensorcaine-Mpf 0.25%) Confirm Administered Dose 10 ml .ROUTE .STK-[facility] ONE Stop: 11/20/18 09:08 Cefazolin Sodium (Ancef) Confirm Administered Dose 1 gm .ROUTE .STK-MED ONE Stop: 11/20/18 07:36 Cefazolin Sodium (Ancef) Confirm Administered Dose 1 gm .ROUTE .STK-MED ONE Stop: 11/20/18 07:36 Fentanyl (Sublimaze) Confirm Administered Dose 100 mcg .ROUTE .STK-MED ONE Stop: 11/20/18 07:35 Lidocaine HCl (Xylocaine-Mpf 1%) Confirm Administered Dose 2 mls @ as directed .ROUTE .STK-MED ONE Stop: 11/20/18 07:35 Lidocaine HCl (Xylocaine-Mpf 1%) Confirm Administered Dose 2 mls @ as directed .ROUTE .STK-MED ONE Stop: 11/20/18 07:36 Lidocaine HCl (Xylocaine-Mpf 0.5%) Confirm Administered Dose 50 ml .ROUTE .STK- MED ONE Stop: 11/20/18 07:35 Midazolam HCl (Versed 1 Mg/Ml) Confirm Administered Dose 2 mg .ROUTE .STK-MED ONE Stop: 11/20/18 07:35 Propofol (Diprivan 20 Ml) Confirm Administered Dose 200 mg .ROUTE .STK-MED ONE Stop: 11/20/18 07:35 Sodium Bicarbonate (Sodium Bicarbonate 8.4%) Confirm Administered Dose 50 meq .ROUTE .STK-MED ONE Stop: 11/20/18 07:36
[2018-11-20] MEDS ORDERED: Propofol 200 MG/20 ML SDV ONE (10:39)
--- NOTE | 2018-11-20 11:28 | PCM48HPAN ---
Post Anesthesia Note - EVALUATION WITHIN 48HRS OF ANESTHETIC Vital Signs in Normal Range: Yes Patient Participated in Evaluation: Yes Respiratory Function Stable: Yes Airway Patent: Yes Cardiovascular Function Stable: Yes Hydration Status Stable: Yes Pain Control Satisfactory: Yes Nausea and Vomiting Control Satisfactory: Yes Mental Status Recovered: Yes Pulse Rate: 77 SaO2: 97 Resp Rate: 16 Blood Pressure: 87/55 Pulse Rate: 77 - COMMENTS/OBSERVATIONS Free Text/Narrative:: block receding. no c/0. denies pain.
[2018-11-20 13:03] VITALS: BP 101/68
--- NOTE | 2018-11-27 14:03 | OR ---
DATE OF OPERATION: 11/20/2018 SURGEON: Arthur Muro MD PREOPERATIVE DIAGNOSIS: 1. Left De Quervain tenosynovitis. 2. Left wrist dorsal ganglion cyst. OPERATION PERFORMED: 1. Left wrist dorsal compartment release (). 2. Left wrist dorsal compartment extensor tenosynovectomy. 3. Excision of dorsal wrist ganglion cyst ([id number]). BIN OPERATOR: therapeutic recreation assistant: Gabbi Duval. INDICATIONS: The patient is a pleasant 28-year-old female with symptomatic De Quervain tenosynovitis and a ganglion cyst of the dorsal aspect of her wrist. After discussing the risks, benefits, and alternatives as well as conservative as well as surgical treatment, the patient verbalized understanding and wished to proceed with surgery. DESCRIPTION OF PROCEDURE: The patient was brought to the operating room. Underwent a Joanne blockade. Left upper extremity was prepped and draped in a standard orthopedic fashion. Surgical pause was performed identifying the appropriate patient and appropriate extremity to be operated upon. Preoperative antibiotics were given. An incision was made in the first dorsal compartment, sharp dissection was carried down through the skin and subcutaneous tissue. Hemostasis was obtained. Identifying the superficial branch of the radial nerve, this was mobilized and protected. We incised the retinaculum of the first dorsal compartment tendons at its dorsal leading edge. She had separate compartments for the APL and EPB. These were both released. She had moderate synovitis present, so a tenosynovectomy was performed of both the APL and EPB tendons. Attention was then directed to the dorsum of the wrist. She had a small ganglion cyst present, sharply dissected down through the skin and subcutaneous tissue. Hemostasis was obtained. Previously, again she had some small area of scapholunate interval, but preoperatively she was pointing more to the radial side of the wrist evaluate both from the same dorsal incision. We dissected down through the skin and subcutaneous tissue down the extensor retinaculum. Just distal to the extensor retinaculum, the tendons were mobilized. We incised the capsule. Again, just beneath the capsule, was a small ganglion cyst tracking down to the scapholunate interval and distally. The scapholunate ligament was intact. We removed the cyst entirely. The wound was thoroughly irrigated. We then evaluated the radial aspect of the wrist through the same incision. She had some modest tenosynovitis. This was debrided in the wrist joint, but I could not identify a ganglion further radially. The wounds were thoroughly irrigated. The capsule was closed with Vicryl suture and the skin was closed with nylon. She was placed in a well- padded splint and brought to Recovery in satisfactory condition. POSTOPERATIVE DIAGNOSIS: ANESTHESIA: ESTIMATED BLOOD LOSS: MMODAL /[id number]
== END 2018-11-20 11:56 | disposition home or self-care (01) ==
LOC: JD.SDS 07:45
PROVIDERS: ATTEND Orthopaedic Surgery
DX: M65.4 Radial styloid tenosynovitis [de Quervain] (principal); M67.432 Ganglion, left wrist; M65.842 Other synovitis and tenosynovitis, left hand; F17.290 Nicotine dependence, other tobacco product, uncomplicated; Z88.0 Allergy status to penicillin; Z88.5 Allergy status to narcotic agent; Z88.1 Allergy status to other antibiotic agents; Z88.8 Allergy status to other drugs, medicaments and biological substances; Z91.040 Latex allergy status; Z79.899 Other long term (current) drug therapy
CPT/HCPCS: 25111; 25118; J0690; J2001; J2250; J2704; J3010; J3490; J7120; 01810

== ENCOUNTER 2020-05-07 18:42 | Emergency (ER) | payer MEDICAID, OTHER, SELFPAY ==
[2020-05-07 19:02] VITALS: BP 110/70
[2020-05-07 19:26] VITALS: PULSE 80
--- NOTE | 2020-05-07 19:37 | EDM.PDOC ---
ED HPI GENERAL MEDICAL PROBLEM - General Chief Complaint: Respiratory Problem Stated Complaint: low oxygen 16 weeks preg ob told her to come in Time Seen by Provider: 05/07/20 19:05 Source of Information: Reports: Patient History Limitations: Reports: No Limitations - History of Present Illness INITIAL COMMENTS - FREE TEXT/NARRATIVE: Mrs. Mendoza is a very pleasant 30-year-old woman, -1-3-3, 16 weeks 1 day gestation today by ultrasound on 04/04/2020, with an ROSHAN of 10/21/2020, who now presents to the ED due to a low SpO2 by a finger pulse oximeter at home. She states that she was diagnosed with a "sinus infection" on 05/05/2020. She states that she was offered antibiotics and steroids, which she declined. She states that a swab for the SARS-CoV-2 virus at that time was negative. She states that she had been feeling lightheaded, therefore checked her pulse oximeter, finding it to be 83%. No recent dyspnea, wheezing, or cough. Here in the ED, the patient is found to be hemodynamically stable, afebrile, saturating 100% on room air. The patient reports that she has had some nasal congestion, but no recent fever, facial pain, or purulent drainage. Otherwise, the patient denies having a recent fever, chills, sore throat, ear pain, cough, dyspnea, chest pain, palpitations, nausea, vomiting, constipation, diarrhea, abdominal pain, urinary symptoms, recent weight gain or weight loss, recent bloody bowel movements or black bowel movements, recent joint aches, headaches, or rashes. The patient's FLIGHT LINE MECHANIC is Dr. Frank Dahl. She does not have a PCP. Bilateral Chest Pain Score (Numeric/FACES): 3 - Related Data Allergies Allergy/AdvReac Type Severity Reaction Status Date / Time diphenhydramine HCl Allergy Severe Hives Verified 05/07/20 19:02 [From Benadryl] latex Allergy Severe Swelling Verified 05/07/20 19:02 Penicillins Allergy Severe Airway Verified 05/07/20 19:02 Tightness tetracycline [Tetracycline] Allergy Severe Airway Verified 05/07/20 19:02 Tightness tramadol Allergy Severe Hives Verified 05/07/20 19:02 Home Meds: Home Meds Doxylamine Succinate [Unisom] 25 mg PO BEDTIME PRN 05/07/20 [History] Folic Acid 0.4 mg PO BEDTIME 05/07/20 [History] Past Medical History HEENT History: Reports: Impaired Vision (wears glasses) Gastrointestinal History: Reports: GERD (when ) Genitourinary History: Reports: Renal Calculus FLIGHT LINE MECHANIC History: Reports: Spontaneous (x 3), Other (See Below) (Bicornuate uterus) : 7 Para: 3 Psychiatric History: Reports: Anxiety, Depression, OCD, Panic Attack - Past Surgical History HEENT Surgical History: Reports: Oral Surgery (wisdom teeth extraction) GI Surgical History: Reports: EGD Female Surgical History: Reports: Section (x , 2013), Lithotripsy/ESWL Musculoskeletal Surgical History: Reports: Ganglion Cyst (left wrist) Social & Family History - Family History Family Medical History: Noncontributory - Tobacco Use Smoking Status *Q: Current Every Day Smoker Years of Tobacco use: 16 Packs/Tins Daily: 0.2 Packs/Tins Daily Comment: Down from 0.7 ppd - Caffeine Use Caffeine Use: Reports: None - Alcohol Use Alcohol Use History: No - Recreational Drug Use Recreational Drug Use: Yes Drug Use in Last 12 Months: No Recreational Drug Type: Reports: Marijuana/Hashish (last smoked in HS) - Living Situation & Occupation Living situation: Reports: , with Spouse, with Family (3 kids) Occupation: Unemployed ED ROS GENERAL - Review of Systems Review Of Systems: Comprehensive ROS is negative, except as noted in HPI. ED EXAM, GENERAL - Physical Exam Exam: See Below Exam Limited By: No Limitations General Appearance: Alert, WD/WN, No Apparent Distress Eye Exam: Bilateral Eye: EOMI, Normal Inspection Ears: Normal External Exam, Hearing Grossly Normal Nose: Normal Inspection Throat/Mouth: Normal Inspection, Normal Lips, Normal Voice, No Airway Compromise Head: Atraumatic, Normocephalic Neck: Normal Inspection, Full Range of Motion Respiratory/Chest: No Respiratory Distress, Lungs Clear, Normal Breath Sounds, No Accessory Muscle Use. No: Decreased Breath Sounds, Crackles, Rhonchi, Wheezing, Stridor, Prolonged Expiration Cardiovascular: Normal Peripheral Pulses, Regular Rate, Rhythm, No Edema, No Gallop, No JVD, No Murmur, No Rub Peripheral Pulses: 3+: Radial (L), Radial (R) GI/Abdominal: Normal Bowel Sounds, Soft, Non-Tender, No Organomegaly, No Distention, No Abnormal Bruit, Mass (Gravid uterus consistent with dates) (Female) Exam: Deferred Rectal (Female) Exam: Deferred Back Exam: Normal Inspection, Full Range of Motion, NT Extremities: Normal Inspection, Normal Range of Motion, No Pedal Edema, Normal Capillary Refill Neurological: Alert, Oriented, Normal Cognition, No Motor/Sensory Deficits Psychiatric: Normal Affect Skin Exam: Warm, Dry, Intact, Normal Color, No Rash Course - Vital Signs Last Recorded V/S: Last Vital Signs Temp 36.3 C 05/07/20 18:52 Pulse 80 05/07/20 19:25 Resp 18 05/07/20 18:52 BP 110/70 05/07/20 18:52 Pulse Ox 98 05/07/20 19:25 - Orders/Labs/Meds Orders: Active Orders 24 hr Category Date Time Status CORONAVIRUS COVID-19 PCR PHL Stat Lab 05/07/20 19:58 Received - Re-Assessments/Exams Free Text/Narrative Re-Assessment/Exam: 05/07/20 19:31 As above, the patient was feeling dizzy earlier tonight, in the setting of what appears to be a viral URI (clinically, the patient does not have a sinus infection), and checked her oxygen saturation with a pulse oximeter, finding it to be depressed at 83%. Here in the ED, however, her oxygen saturation is 100% on room air. No recent fever. Her physical exam is entirely benign. I explained the number of ways that a home pulse oximeter can be erroneously low; in the patient's case, it is most likely due to her dark blue nail malay. I explained that if we know that a patient has COVID-19, but has a good oxygen saturation, that the only test necessary from the emergency department would be a chest x-ray to be used as a baseline, in case the patient's condition declined, however, in this case, we do not know that the patient has COVID-19, and since she is , I do not see an indication for a baseline chest x- ray. The only test that I am recommending, and it is only because she is here, is to perform a [facility] send-out test for the SARS-CoV-2 virus. The patient expressed understanding and agreement. Departure - Departure Time of Disposition: 19:35 Disposition: Home, Self-Care 01 Condition: Good Clinical Impression: Abnormal pulse oximetry, - Discharge Information *PRESCRIPTION DRUG MONITORING PROGRAM REVIEWED*: Not Applicable *COPY OF PRESCRIPTION DRUG MONITORING REPORT IN PATIENT VANE: Not Applicable Instructions: COVID-19 Frequently Asked Questions, Care, and COVID-19 Referrals: Frank Dahl MD [Primary Care Provider] - Forms: ED Department Discharge Additional Instructions: You were seen in the emergency room after feeling dizzy, in the setting of having a viral URI, then finding an oxygen saturation of 83% on a pulse oximeter at home. In the ER, your oxygen saturation was found to be 100%, with a good pulse correlation. As discussed, there are a number of reasons why your home pulse oximeter can give you an erroneously low value. In your case, it is most likely due to your blue nail malay. You were swabbed for the SARS-CoV-2 virus. You should expect results within the next 24 to 48 hours, however, it may be a little longer due to the weekend. If any other problems, please do not hesitate to return to the ER. Sepsis Event Note (ED) - Evaluation Sepsis Screening Result: No Definite Risk - Focused Exam Vital Signs: Vital Signs Temp Pulse Resp BP Pulse Ox 05/07/20 19:25 80 98 05/07/20 18:52 36.3 C 82 18 110/70 100 - My Orders Last 24 Hours: My Active Orders 05/07/20 19:58 CORONAVIRUS COVID-19 PCR PHL Stat - Assessment/Plan Last 24 Hours: My Active Orders 05/07/20 19:58 CORONAVIRUS COVID-19 PCR PHL Stat
== END 2020-05-07 19:59 | disposition home or self-care (01) ==
LOC: JD.ED 18:42
DX: O99.89 Other specified diseases and conditions complicating pregnancy, childbirth and the puerperium (principal); R09.02 Hypoxemia; O99.332 Smoking (tobacco) complicating pregnancy, second trimester; F17.210 Nicotine dependence, cigarettes, uncomplicated; Z20.828 Contact with and (suspected) exposure to other viral communicable diseases; Z88.8 Allergy status to other drugs, medicaments and biological substances; Z91.040 Latex allergy status; Z88.0 Allergy status to penicillin; Z88.5 Allergy status to narcotic agent; Z3A.16 16 weeks gestation of pregnancy
CPT/HCPCS: 99282; 99284; U0002

== ENCOUNTER 2020-10-14 01:15 | Inpatient (IN) | payer MEDICAID, OTHER ==
--- NOTE | 2020-10-10 10:53 | PCM.LDHP ---
L&D History of Present Illness - General Date of Service: 10/10/20 Admit Problem/Dx: Admission Diagnosis/Problem Admission Diagnosis/Problem Source of Information: Patient History Limitations: Reports: No Limitations - History of Present Illness Introduction:: Jesus Mendoza is a 30-year-old -2-3-3 female currently at 38 weeks 0 days gestational age (ROSHAN 10/24/2020) by a 6-week ultrasound who is planning to undergo external cephalic version and possible section on 10/18/2020. Patient will be 39 weeks 1 day at the time of the external cephalic version and possible section. Patient underwent external cephalic version on 10/03/2020 that was initially successful but then the returned to previous thad breech presentation. The patient has been having some abdominal pain from the amount of pressure that was applied to the abdomen from the external cephalic version. She continues to feel the head in the right upper quadrant of her abdomen. She denies any leaking of fluid or vaginal bleeding. She does have some irregular contractions about 1 to 2/day. She has been having good movement. Timing/Duration: Reports: intermittent (Contractions with 1 to 2/day) Location, : Reports: Abdomen (Lower abdominal pain around her scar with pelvic pressure) Quality: Reports: Ache, Burning Severity: Moderate Pain Score: 6 Worsens with: Reports: Movement Associated Symptoms: Denies: vaginal bleeding, vaginal discharge, vaginal fluid Present Illness Comments:: Jesus Mendoza is a 30-year-old -2-3-3 female at 38 weeks 0 days (ROSHAN 10/24/2020) by 6-week ultrasound who presents for scheduled external cephalic version with possible section at 39 weeks 1 day. She has had routine care with myself, Dr. Dahl, starting at 6 weeks gestational age. Her has been overall uncomplicated. She has been on Leah for a history of delivery with section due to placental abruption in her second when she was at 32 weeks gestational age. Her first baby was delivered at 36 weeks gestational age and was overall uncomplicated. She did have a successful delivery in August 2018. That infant was also in breech presentation. Patient does have a bicornuate uterus that may increase risk for breech presentation. She declined Tdap and flu vaccine during this . She had undergone an external cephalic version at 37 weeks gestational age that was initially successful with the infant into cephalic presentation but during monitoring the reverted to the previous thad breech presentation. Her is complicated by: * History of section in 2013 for placental abruption, she desires a trial of labor after section and has had a successful delivery in August 2018. * History of delivery at 32 and 36 weeks gestational age. She has been on Leah during this starting at 16 weeks gestational age for treatment of delivery * found to be in breech presentation at 36 and 37 weeks gestational age. 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 G1: 2010, SAB at 5 weeks gestational age G2: 2010, SAB at 15 weeks gestational age per report G3: 10/10/2012, , 36 weeks gestational age, 6 pound 7 ounces, female , epidural for anesthesia, epidural did not work per her report G4: 04/24/2014, emergency section for placental abruption, 32 weeks gestational age, 4 pounds 1 ounce, female , spinal injection for anesthesia G5: 12/24/2017, SAB at 7 weeks gestational age G6: 09/10/2018, delivery, 37 weeks gestational age, 7 pounds 9 ounces, male infant, epidural for anesthesia, breech presentation on initial evaluation and underwent induction of labor due to tachycardia G7: Current labs Blood type: O+ Antibody screen: Negative First trimester hematocrit/hemoglobin: 40.5%/13.7 on 04/04/2020 Platelets: 312 on 04/04/2020 Urine culture: Mixed herminia suggestive of contamination Rubella status: Immune Hepatitis B surface antigen: Negative RPR: Negative HIV: Negative Gonorrhea: Negative Chlamydia: Negative Genetic testing: Normal prequel genetic screening testing done on 04/04/2020 Anatomy ultrasound: Normal anatomy, no abnormalities, fifth 65th percentile, posterior placenta, no previa, normal fluid on 06/08/2020 One hour glucose tolerance test: 93 Second trimester hematocrit/hemoglobin: 36.6%/12.0 on 07/04/2020 Platelets: 327 on 07/04/2020 GBS status: Negative on 09/26/2020 - Related Data Allergies/Adverse Reactions: Allergies Allergy/AdvReac Type Severity Reaction Status Date / Time diphenhydramine HCl Allergy Severe Hives Verified 05/07/20 19:02 [From Benadryl] latex Allergy Severe Swelling Verified 05/07/20 19:02 Penicillins Allergy Severe Airway Verified 05/07/20 19:02 Tightness tetracycline [Tetracycline] Allergy Severe Airway Verified 05/07/20 19:02 Tightness tramadol Allergy Severe Hives Verified 05/07/20 19:02 Home Medications: Home Meds Butalbital/Acetaminophen [Butalbital-Acetaminophn 50-325] 1 - 2 tab PO ASDIRECTED PRN 10/08/20 [History] Cyclobenzaprine HCl 1 tab PO TID PRN 10/08/20 [History] Past Medical History HEENT History: Reports: Impaired Vision (wears glasses) Other HEENT History: wears glasses Cardiovascular History: Reports: None Respiratory History: Reports: None Gastrointestinal History: Reports: GERD (when ) Genitourinary History: Reports: Renal Calculus 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: 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 (x 3), Other (See Below) (Bicornuate uterus) : 7 Para: 3 Musculoskeletal History: Reports: Other (See Below) Other Musculoskeletal History: left wrist ganglion cyst Neurological History: Reports: None Psychiatric History: Reports: Anxiety, Depression, OCD, Panic Attack Endocrine/Metabolic History: Reports: None Hematologic History: Reports: None Immunologic History: Reports: None Oncologic (Cancer) History: Reports: None Dermatologic History: Reports: None - Infectious Disease History Infectious Disease History: Reports: None - Past Surgical History HEENT Surgical History: Reports: Oral Surgery (wisdom teeth extraction) GI Surgical History: Reports: EGD Female Surgical History: Reports: Section (x , 2013), Lithotripsy/ESWL Musculoskeletal Surgical History: Reports: Ganglion Cyst (left wrist) Social & Family History - Family History Family Medical History: No Pertinent Family History - Tobacco Use Tobacco Use Status *Q: Current Every Day Tobacco User - Tobacco Core Measures Tobacco Use/Smoking Within Last 30 Days: Yes Smoking Frequency Within Last 30 Days: Reports: Four or Less Cigarettes Per Day Desires Tobacco Cessation Medication: Refuses FDA Approved Med - Caffeine Use Caffeine Use: Reports: None - Alcohol Use Alcohol Use History: No - Recreational Drug Use Recreational Drug Use: No Drug Use in Last 12 Months: No - Living Situation & Occupation Living situation: Reports: , with Spouse, with Family (3 kids) Occupation: Unemployed H&P Review of Systems - Review of Systems: Review Of Systems: See Below General: Denies: Fever, Chills, Malaise, Weakness, Fatigue HEENT: Reports: Glasses. Denies: Rhinitis, Post Nasal Drip, Sinus Congestion, Sore Throat, Visual Changes Pulmonary: Denies: Shortness of Breath, Wheezing, Cough Cardiovascular: Denies: Chest Pain, Palpitations, Dyspnea on Exertion, Orthopnea Gastrointestinal: Reports: Abdominal Pain (around section scar from previous external cephalic version procedure). Denies: Constipation, Diarrhea, Nausea, Vomiting Genitourinary: Denies: Dysuria, Frequency, Burning, Pain, Urgency Musculoskeletal: Denies: Back Pain Skin: Denies: Rash, Lesions Psychiatric: Denies: Depression, Anxiety L&D Exam - Exam Exam: See Below - Vital Signs Vital Signs: BP: 110/65 Weight: 77.201 kg - OB Specific Fundal Height In cm: 38 Heart Tones: Present Heart Tones per Min: 124 - Exam General: Alert, Oriented HEENT: Conjunctiva Clear, EOMI Neck: Supple, Trachea Midline Lungs: Clear to Auscultation, Normal Respiratory Effort Cardiovascular: Regular Rate, Regular Rhythm GI/Abdominal Exam: Soft, Non-Tender, No Distention, Other (Gravid). No: Guarding, Rigid, Rebound Genitourinary: Other (Deferred cervical or pelvic exam) Skin: Warm, Dry, Intact Psychiatric: Alert, Normal Affect, Normal Mood - Problem List (1) 39 weeks gestation of SNOMED Code(s): 59390942 ICD Code: Z3A.39 - 39 WEEKS GESTATION OF Status: Acute (2) Breech presentation SNOMED Code(s): 4081656 ICD Code: O32.1XX0 - MATERNAL CARE FOR BREECH PRESENTATION, UNSP Status: Acute (3) History of delivery, currently SNOMED Code(s): 081081799, 031247706 ICD Code: O34.219 - MATERNAL CARE FOR UNSP TYPE SCAR FROM PREVIOUS DEL Status: Acute (4) History of section SNOMED Code(s): 557034073 ICD Code: Z98.891 - HISTORY OF UTERINE SCAR FROM PREVIOUS SURGERY Status: Acute (5) History of delivery SNOMED Code(s): 946203089 ICD Code: Z87.51 - PERSONAL HISTORY OF PRE-TERM LABOR Status: Acute (6) History of delivery, currently SNOMED Code(s): 851469937, 993164239 ICD Code: O09.219 - SUPRVSN OF PREG W HISTORY OF PRE-TERM LABOR, UNSP TRIMESTER Status: Acute (7) Tobacco use during SNOMED Code(s): 254189523565486 ICD Code: O99.330 - SMOKING (TOBACCO) COMPLICATING , UNSP TRIMESTER Status: Acute Problem List Initiated/Reviewed/Updated: Yes Assessment/Plan Comment:: Jesus Mendoza is a 30-year-old -2-3-3 female at 38 weeks 0 days on her visit on 10/10/2020 (ROSHAN 10/24/2020) who is planned to undergo external cephalic version with possible section on 10/18/2020 when she will be 39 weeks 1 day gestational age. Refer for observation and induction of labor if the external cephalic version is successful, admit to inpatient after section NST prior to external cephalic version Place IV and have Lactated Ringer's at 125 ml/hr SCDs for DVT prophylaxis if we proceed for section Nothing by mouth until after the external cephalic version or section Activity as tolerated Plan for epidural for anesthesia for the external cephalic version and for section if needed CBC, RPR and type and screen prior to surgery Patient to have COVID-19 swab on presentation to labor and delivery Plans to breast-feed after delivery Plan for Ancef 2 g IV for antibiotic prophylaxis prior to surgery Frank Dahl M.D. 11:13 AM 10/10/2020
--- NOTE | 2020-10-14 01:48 | PCM.LDHP ---
L&D History of Present Illness - General Admit Problem/Dx: Admission Diagnosis/Problem Admission Diagnosis/Problem 10/14/20 01:43 Breech, rupture of membranes, labor, prior Source of Information: Patient - History of Present Illness Introduction:: 30 year at 38w4d presents with SROM of clear fluid. Grossly leaking fluid on admission. PNC with Dr Dahl complicated by 1. History of prior for placental abruption at 32w 2. Bicornuate uterus 3. On ernestine for history of delivery 4. tobacco use Pain Score: 6 - Related Data Allergies/Adverse Reactions: Allergies Allergy/AdvReac Type Severity Reaction Status Date / Time diphenhydramine HCl Allergy Severe Hives Verified 05/07/20 19:02 [From Benadryl] latex Allergy Severe Swelling Verified 05/07/20 19:02 Penicillins Allergy Severe Airway Verified 05/07/20 19:02 Tightness tetracycline [Tetracycline] Allergy Severe Airway Verified 05/07/20 19:02 Tightness tramadol Allergy Severe Hives Verified 05/07/20 19:02 Home Medications: Home Meds Butalbital/Acetaminophen [Butalbital-Acetaminophn 50-325] 1 - 2 tab PO ASDIRECTED PRN 10/08/20 [History] Cyclobenzaprine HCl 1 tab PO TID PRN 10/08/20 [History] Past Medical History - Past Health History Medical/Surgical History: Denies Medical/Surgical History HEENT History: Reports: Impaired Vision (wears glasses) Other HEENT History: wears glasses Cardiovascular History: Reports: None Respiratory History: Reports: None Gastrointestinal History: Reports: GERD (when ) Genitourinary History: Reports: Renal Calculus 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), Other (See Below) ( Bicornuate uterus) Other OB/BYN History: Musculoskeletal History: Reports: Other (See Below) Other Musculoskeletal History: left wrist ganglion cyst Neurological History: Reports: None Psychiatric History: Reports: Anxiety, Depression, OCD, Panic Attack Endocrine/Metabolic History: Reports: None Hematologic History: Reports: None Immunologic History: Reports: None Oncologic (Cancer) History: Reports: None Dermatologic History: Reports: None - Infectious Disease History Infectious Disease History: Reports: None - Past Surgical History HEENT Surgical History: Reports: Oral Surgery (wisdom teeth extraction) GI Surgical History: Reports: EGD Female Surgical History: Reports: Section (x 2013), Lithotripsy/ESWL Musculoskeletal Surgical History: Reports: Ganglion Cyst (left wrist) Social & Family History - Family History Family Medical History: No Pertinent Family History - Tobacco Use Tobacco Use Status *Q: Current Every Day Tobacco User - Caffeine Use Caffeine Use: Reports: None - Recreational Drug Use Recreational Drug Use: No Drug Use in Last 12 Months: No - Living Situation & Occupation Living situation: Reports: , with Spouse, with Family (3 kids) Occupation: Unemployed H&P Review of Systems - Review of Systems: Review Of Systems: See Below General: Reports: No Symptoms HEENT: Reports: No Symptoms Pulmonary: Reports: No Symptoms Cardiovascular: Reports: No Symptoms Gastrointestinal: Reports: No Symptoms Genitourinary: Reports: No Symptoms Musculoskeletal: Reports: No Symptoms Skin: Reports: No Symptoms Psychiatric: Reports: No Symptoms Neurological: Reports: No Symptoms Hematologic/Lymphatic: Reports: No Symptoms Immunologic: Reports: No Symptoms L&D Exam - Exam Exam: See Below - Vital Signs Weight: 77.201 kg - OB Specific Fundal Height In cm: 38 Heart Tones: Present Heart Tones per Min: 124 - Harper Score Harper Score Cervix Position: Midposition Harper Score Consistency: Soft Harper Score Effacement: 51-70% Harper Score Dilation: 3-4 cm Harper Score 's Station: -2 Harper Score Total: 8 - Exam General: Alert, Oriented HEENT: PERRLA, Conjunctiva Clear, EACs Clear, EOMI, Hearing Intact, Mucosa Moist & Boaz, Nares Patent, Normal Nasal Septum, Posterior Pharynx Clear, TMs Clear Neck: Supple, Trachea Midline Lungs: Clear to Auscultation, Normal Respiratory Effort Cardiovascular: Regular Rate, Regular Rhythm GI/Abdominal Exam: Normal Bowel Sounds, Soft, Non-Tender, No Organomegaly, No Distention, No Abnormal Bruit, No Mass, Pelvis Stable Back Exam: Normal Inspection, Full Range of Motion Extremities: Normal Inspection, Normal Range of Motion, Non-Tender, No Pedal Edema, Normal Capillary Refill Skin: Warm, Dry, Intact Neurological: Cranial Nerves Intact, Reflexes Equal Bilateral Psychiatric: Alert, Normal Affect, Normal Mood Problem List Initiated/Reviewed/Updated: Yes Assessment/Plan Comment:: Jesus Mendoza is a 30-year-old -2-3-3 female at 38 weeks 0 days on her visit on 10/10/2020 (ROSHAN 10/24/2020) who was planned to undergo external cephalic version with possible section on 10/18/2020 when she will be 39 weeks 1 day gestational age. Presented now in labor with SROM. Breech engaged and minimal fluid on ultrasound so decision to proceed with repeat section. NST prior to external cephalic version Place IV and have Lactated Ringer's at 125 ml/hr SCDs for DVT prophylaxis Nothing by mouth until after the section Plan for spinal for anesthesia for the external cephalic version and for section if needed CBC, RPR and type and screen prior to surgery Patient to have COVID-19 swab on presentation to labor and delivery Plans to breast-feed after delivery Plan for Ancef 2 g IV for antibiotic prophylaxis prior to surgery
[2020-10-14] MEDS ORDERED: Metoclopramide 10 MG/2 ML SDV IVPUSH ONE (01:49)
[2020-10-14] MEDS ORDERED: Sodium Chloride 0.9% 10 ML Syringe FLUSH PRN (01:49)
[2020-10-14] MEDS ORDERED: Citric Acid/Sodium Citrate Solution 30 ML Cup PO ONE (01:49)
[2020-10-14] MEDS ORDERED: ceFAZolin 2 GM in Premix Bag 1 BAG IV ONE (01:49)
[2020-10-14] MEDS ORDERED: Phenylephrine 1% 10 MG/ML SDV ONE (01:56)
[2020-10-14] MEDS ORDERED: ceFAZolin 1 GM Vial ONE (01:56)
[2020-10-14] MEDS ORDERED: Morphine PF 10 MG/10 ML SDV ONE (01:56)
[2020-10-14] MEDS ORDERED: Lactated Ringers 1,000 ML IV SCH ×2 (02:00→07:00)
[2020-10-14] MEDS ORDERED: Bupivacaine 0.5% 30 ML SDV ONE (02:01)
[2020-10-14] MEDS ORDERED: Lactated Ringers 1,000 ML ONE ×2 (02:01→05:54)
[2020-10-14] MEDS ORDERED: Azithromycin 500 MG in Sodium Chloride 0.9% 250 ML IV STA (02:15)
[2020-10-14] MEDS ORDERED: Ketorolac 30 MG/ML SDV ONE (02:43)
[2020-10-14] MEDS ORDERED: Oxytocin 10 Units/1 ML SDV ONE (02:43)
--- NOTE | 2020-10-14 03:19 | PCM.POSTAN ---
POST ANESTHESIA ASSESSMENT - MENTAL STATUS Mental Status: Alert, Oriented - RESPIRATORY Respiratory Status: Respiratory Rate WNL, Airway Patent, O2 Saturation Stable - CARDIOVASCULAR CV Status: Pulse Rate WNL, Blood Pressure Stable - GASTROINTESTINAL GI Status: No Symptoms - PAIN Pain Score: 0 - POST OP HYDRATION Hydration Status: Adequate & Stable - OBSERVATIONS Free Text/Narrative:: no anesthesia complications noted
--- NOTE | 2020-10-14 03:21 | PCM.PREANE ---
Preanesthetic Assessment - Procedure Proposed Procedure: emergency repeat - Anesthesia/Transfusion/Family Hx Anesthesia History: Prior Anesthesia Without Reaction Family History of Anesthesia Reaction: No Transfusion History: No Prior Transfusion(s) - Review of Systems General: Malaise Pulmonary: No Symptoms Cardiovascular: No Symptoms Gastrointestinal: Abdominal Pain (labor) Neurological: No Symptoms Other: Reports: None - Physical Assessment NPO Status Date: 10/13/20 NPO Status Time: 18:00 Weight: 77.201 kg ASA Class: 2E Mental Status: Alert & Oriented x3 Airway Class: Mallampati = 2 Dentition: Reports: Normal Dentition Thyro-Mental Finger Breadths: 3 Mouth Opening Finger Breadths: 2 ROM/Head Extension: Full Lungs: Clear to Auscultation, Normal Respiratory Effort Cardiovascular: Regular Rate, Regular Rhythm - Lab Values: Laboratory Last Values WBC 11.42 K/mm3 (3.98-10.04) H 10/14/20 01:55 RBC 3.85 M/mm3 (3.98-5.22) L 10/14/20 01:55 Hgb 12.1 gm/dl (11.2-15.7) 10/14/20 01:55 Hct 36.8 % (34.1-44.9) 10/14/20 01:55 MCV 95.6 fl (79.4-94.8) H 10/14/20 01:55 MCH 31.4 pg (25.6-32.2) 10/14/20 01:55 MCHC 32.9 g/dl (32.2-35.5) 10/14/20 01:55 RDW Std Deviation 45.9 fL (36.4-46.3) 10/14/20 01:55 Plt Count 306 K/mm3 (182-369) 10/14/20 01:55 MPV 9.9 fl (9.4-12.3) 10/14/20 01:55 SARS-CoV-2 RNA (SORIN) Negative (NEGATIVE) 10/14/20 01:55 - Allergies Allergies/Adverse Reactions: Allergies Allergy/AdvReac Type Severity Reaction Status Date / Time diphenhydramine HCl Allergy Severe Hives Verified 05/07/20 19:02 [From Benadryl] latex Allergy Severe Swelling Verified 05/07/20 19:02 Penicillins Allergy Severe Airway Verified 05/07/20 19:02 Tightness tetracycline [Tetracycline] Allergy Severe Airway Verified 05/07/20 19:02 Tightness tramadol Allergy Severe Hives Verified 05/07/20 19:02 - Anesthesia Plan Pre-Op Medication Ordered: Antacids - Acknowledgements Anesthesia Type Planned: Spinal Pt an Appropriate Candidate for the Planned Anesthesia: Yes Alternatives and Risks of Anesthesia Discussed w Pt/Guardian: Yes Pt/Guardian Understands and Agrees with Anesthesia Plan: Yes PreAnesthesia Questionnaire - Past Health History Medical/Surgical History: Denies Medical/Surgical History HEENT History: Reports: Impaired Vision (wears glasses) Other HEENT History: wears glasses Cardiovascular History: Reports: None Respiratory History: Reports: None Gastrointestinal History: Reports: GERD (when ) Genitourinary History: Reports: Renal Calculus [employer] History: Reports: Spontaneous (x 3), Other (See Below) (Bicornuate uterus) Other OB/BYN History: Musculoskeletal History: Reports: Other (See Below) Other Musculoskeletal History: left wrist ganglion cyst Neurological History: Reports: None Psychiatric History: Reports: Anxiety, Depression, OCD, Panic Attack Endocrine/Metabolic History: Reports: None Hematologic History: Reports: None Immunologic History: Reports: None Oncologic (Cancer) History: Reports: None Dermatologic History: Reports: None - Infectious Disease History Infectious Disease History: Reports: None - Past Surgical History HEENT Surgical History: Reports: Oral Surgery (wisdom teeth extraction) GI Surgical History: Reports: EGD Female Surgical History: Reports: Section (x 2013), Lithotripsy/ESWL Musculoskeletal Surgical History: Reports: Ganglion Cyst (left wrist) - SUBSTANCE USE Tobacco Use Status *Q: Current Every Day Tobacco User Recreational Drug Use History: No - HOME MEDS Home Medications: Home Meds Butalbital/Acetaminophen [Butalbital-Acetaminophn 50-325] 1 - 2 tab PO ASDIRECTED PRN 10/08/20 [History] Cyclobenzaprine HCl 1 tab PO TID PRN 10/08/20 [History] - CURRENT (IN HOUSE) MEDS Current Meds: Current Medications Lactated Ringer's (Ringers, Lactated) 1,000 mls @ 125 mls/hr IV ASDIRECTED JOSE Sodium Chloride (Saline Flush) 10 ml FLUSH ASDIRECTED PRN PRN Reason: Keep Vein Open Discontinued Medications Bupivacaine HCl (Marcaine 0.5%) Confirm Administered Dose 30 ml .ROUTE .STK-MED ONE Stop: 10/14/20 02:02 Last Admin: 10/14/20 03:02 Dose: 30 ml Documented by: Citric Acid/Sodium Citrate (Bicitra Solution) 30 ml PO ONETIME ONE Stop: 10/14/20 01:50 Cefazolin Sodium/Dextrose 2 gm (/ Premix) 50 mls @ 100 mls/hr IV ONETIME ONE Stop: 10/14/20 02:18 Azithromycin 500 mg/ Sodium (Chloride) 250 mls @ 250 mls/hr IV ONETIME STA Stop: 10/14/20 03:14 Metoclopramide HCl (Reglan) 10 mg IVPUSH ONETIME ONE Stop: 10/14/20 01:50
--- NOTE | 2020-10-14 03:29 | PCM.OPNOTE ---
- General Post-Op/Procedure Note Date of Surgery/Procedure: 10/14/20 Operative Procedure(s): repeat section Findings: viable male, weight 3430g, thad breech, 7#9oz at 0244. Bicornuate uterus. Baby on right side. Pre Op Diagnosis: breech, srom, labor, prior Post-Op Diagnosis: Same Anesthesia Technique: Spinal Primary Surgeon: Dipti Dykes Anesthesia Provider: Parmjit Leonard Backhaul Driver: Nathalia Vincent Role of Backhaul Driver: retraction, safety, to expedite procedure Fluid Replacement, Intraop: 1,300 Output, Urine Amount: 200 EBL in mLs: 600 Complications: None Condition: Good Free Text/Narrative:: Intake & Output 10/13/20 10/13/20 10/14/20 14:59 22:59 06:59 Output Total 200 Balance -200 The patient was taken to the operating room where spinal anesthesia was initiated and found to be adequate. The patient was prepped and draped in the usual sterile fashion in the dorsal supine position with a leftward tilt. A Pfannenstiel skin incision was made with the scalpel and carried through to the underlying layer of fascia. The fascia was incised in the midline and extended laterally using Mendes scissors. Joe clamps were used to elevate the superior aspect of the fascial incision, which was elevated, and the underlying rectus muscles were dissected off bluntly and using Mendes scissors. Attention was then turned to the inferior aspect of the fascial incision, which in similar fashion was grasped with Joe clamps, elevated, and the underlying rectus muscles were dissected off bluntly and using the mendes. The rectus muscles were dissected in the midline. The peritoneum was entered bluntly; this incision was extended superiorly and inferiorly with good visualization of the bladder. The bladder blade was inserted. The vesicouterine peritoneum was identified and entered sharply using Metzenbaum scissors. This incision was extended laterally and the bladder flap was created digitally. The bladder blade was reinserted. The lower uterine segment was incised in a transverse fashion using the scalpel and with digital traction. Clear fluid was noted. The was subsequently delivered easily with typical breech maneuvers. The cord was clamped and cut. The was subsequently handed to the awaiting milk condenser whose presence had been requested.. The placenta was delivered by expression and was intact with a three-vessel cord noted. The uterus was exteriorized and cleared of all clots and debris. The uterine incision was repaired in 2 layers using 0 monocryl. Hemostasis was visualized. Hemostasis was visualized bilaterally. The uterus was returned to the abdomen. The uterine incision was reexamined and it was noted to be hemostatic. The pelvis was copiously irrigated. The fascia was closed with 1 PDS suture, and the skin was closed with 3-0 monocryl. Sponge, lap, and instrument counts were correct x2. The patient was stable at the completion of the procedure and was subsequently transferred to the recovery room in stable condition.
[2020-10-14] MEDS ORDERED: Ondansetron 4 MG/2 ML SDV ONE (03:31)
[2020-10-14] MEDS ORDERED: Naloxone 0.4 MG/ML SDV IVPUSH PRN (05:22)
[2020-10-14] MEDS ORDERED: Dextrose 5%-Lactated Ringers 1,000 ML IV SCH (05:22)
[2020-10-14] MEDS ORDERED: ePHEDrine 50 MG/ML SDV IVPUSH PRN (05:22)
[2020-10-14] MEDS ORDERED: Docusate Sodium 100 MG Cap PO PRN (05:22)
[2020-10-14] MEDS ORDERED: diphenhydrAMINE 50 MG/ML SDV IVPUSH PRN (05:22)
[2020-10-14] MEDS ORDERED: Ketorolac 30 MG/ML SDV IVPUSH SCH (05:22)
[2020-10-14] MEDS ORDERED: Acetaminophen/oxyCODONE 325-5 MG Tab PO PRN (05:22)
[2020-10-14] MEDS ORDERED: Lactated Ringers 1,000 ML IV ONE (05:55)
[2020-10-14] MEDS ORDERED: Ammonia Inhalant Amp ONE (05:56)
--- NOTE | 2020-10-14 06:37 | PCM.PN ---
- General Info Date of Service: 10/14/20 Subjective Update: Patient feeling well. No pain unless pressure on incision. Not light headed any longer. Called by nursing to come to bedside as patient significantly lightheaded and presyncopal after return from PACU with blood pressure 50/30. Upon my arrival blood pressure improved to 95/60. Patient in bed, somewhat pale and in steep Trendelenburg. Functional Status: Reports: Pain Controlled - Review of Systems General: Reports: No Symptoms HEENT: Reports: No Symptoms Pulmonary: Reports: No Symptoms Cardiovascular: Reports: No Symptoms Gastrointestinal: Reports: No Symptoms Genitourinary: Reports: No Symptoms Musculoskeletal: Reports: No Symptoms Skin: Reports: No Symptoms Neurological: Reports: No Symptoms Psychiatric: Reports: No Symptoms - Patient Data Vitals - Most Recent: Last Vital Signs Temp 36.6 C 10/14/20 04:34 Pulse 89 10/14/20 06:24 Resp 15 10/14/20 05:12 BP 110/75 10/14/20 05:12 Pulse Ox 94 L 10/14/20 06:24 Weight - Most Recent: 78.018 kg I&O - Last 24 Hours: Intake & Output 10/13/20 10/13/20 10/14/20 14:59 22:59 06:59 Intake Total 2175 Output Total 490 Balance 1685 Lab Results Last 24 Hours: Laboratory Results - last 24 hr 10/14/20 10/14/20 10/14/20 Range/Units 01:55 01:55 01:55 WBC 11.42 H (3.98-10.04) K/mm3 RBC 3.85 L (3.98-5.22) M/mm3 Hgb 12.1 (11.2-15.7) gm/dl Hct 36.8 (34.1-44.9) % MCV 95.6 H (79.4-94.8) fl MCH 31.4 (25.6-32.2) pg MCHC 32.9 (32.2-35.5) g/dl RDW Std Deviation 45.9 (36.4-46.3) fL Plt Count 306 (182-369) K/mm3 MPV 9.9 (9.4-12.3) fl SARS-CoV-2 RNA (SORIN) Negative (NEGATIVE) Blood Type O POSITIVE Gel Antibody Screen Negative Med Orders - Current: Current Medications Diphenhydramine HCl (Benadryl) 25 mg IVPUSH Q6H PRN PRN Reason: Itching or Nausea Docusate Sodium (Colace) 100 mg PO Q12H PRN PRN Reason: Constipation Ephedrine Sulfate (Ephedrine Sulfate) 5 mg IVPUSH SEECOMMENT PRN PRN Reason: Other Dextrose/Lactated Ringer's (Dextrose 5%-Lactated Ringers) 1,000 mls @ 125 mls/hr IV ASDIRECTED [facility] Stop: 10/14/20 13:21 Lactated Ringer's (Ringers, Lactated) 1,000 mls @ 999 mls/hr IV .BOLUS ONE Stop: 10/14/20 06:55 Ibuprofen (Motrin) 600 mg PO Q6H PRN PRN Reason: mild pain or fever Ketorolac Tromethamine (Toradol) 30 mg IVPUSH Q6H [facility] Stop: 10/14/20 17:23 Naloxone HCl (Narcan) 0.1 mg IVPUSH SEECOMMENT PRN PRN Reason: Respiratory Depression Oxycodone/Acetaminophen (Percocet 325-5 Mg) 1 tab PO Q4H PRN PRN Reason: Pain (moderate 4-6) Oxycodone/Acetaminophen (Percocet 325-5 Mg) 2 tab PO Q4H PRN PRN Reason: Pain (severe 7-10) Discontinued Medications Ammonia (Aromatic Spirit) (Ammonia Aromatic Inhalant) Confirm Administered Dose 1 ampule .ROUTE .STK-MED ONE Stop: 10/14/20 05:57 Bupivacaine HCl (Marcaine 0.5%) Confirm Administered Dose 30 ml .ROUTE .STK-MED ONE Stop: 10/14/20 02:02 Last Admin: 10/14/20 03:02 Dose: 20 ml Documented by: Citric Acid/Sodium Citrate (Bicitra Solution) 30 ml PO ONETIME ONE Stop: 10/14/20 01:50 Cefazolin Sodium/Dextrose 2 gm (/ Premix) 50 mls @ 100 mls/hr IV ONETIME ONE Stop: 10/14/20 02:18 Lactated Ringer's (Ringers, Lactated) 1,000 mls @ 125 mls/hr IV ASDIRECTED [facility] Last Admin: 10/14/20 03:57 Dose: 125 mls/hr Documented by: Azithromycin 500 mg/ Sodium (Chloride) 250 mls @ 250 mls/hr IV ONETIME STA Stop: 10/14/20 03:14 Lactated Ringer's (Ringers, Lactated) Confirm Administered Dose 1,000 mls @ as directed .ROUTE .STK-MED ONE Stop: 10/14/20 05:55 Metoclopramide HCl (Reglan) 10 mg IVPUSH ONETIME ONE Stop: 10/14/20 01:50 Ondansetron HCl (Zofran) Confirm Administered Dose 4 mg .ROUTE .STK-MED ONE Stop: 10/14/20 03:32 Last Admin: 10/14/20 03:35 Dose: 4 mg Documented by: Sodium Chloride (Saline Flush) 10 ml FLUSH ASDIRECTED PRN PRN Reason: Keep Vein Open - Exam General: Alert, Oriented HEENT: Pupils Equal, Pupils Reactive, EOMI, Mucous Membr. Moist/[place] Neck: Supple Lungs: Clear to Auscultation, Normal Respiratory Effort Cardiovascular: Regular Rate, Regular Rhythm GI/Abdominal Exam: Normal Bowel Sounds, Soft, Non-Tender, No Organomegaly, No Distention, No Abnormal Bruit, No Mass, Pelvis Stable Back Exam: Normal Inspection, Full Range of Motion Extremities: Normal Inspection, Normal Range of Motion, Non-Tender, No Pedal Edema, Normal Capillary Refill Skin: Warm, Dry, Intact Wound/Incisions: Healing Well Neurological: No New Focal Deficit Psy/Mental Status: Alert, Normal Affect, Normal Mood - Patient Data Lab Results Last 24 hrs: Laboratory Results - last 24 hr 10/14/20 10/14/20 10/14/20 Range/Units 01:55 01:55 01:55 WBC 11.42 H (3.98-10.04) K/mm3 RBC 3.85 L (3.98-5.22) M/mm3 Hgb 12.1 (11.2-15.7) gm/dl Hct 36.8 (34.1-44.9) % MCV 95.6 H (79.4-94.8) fl MCH 31.4 (25.6-32.2) pg MCHC 32.9 (32.2-35.5) g/dl RDW Std Deviation 45.9 (36.4-46.3) fL Plt Count 306 (182-369) K/mm3 MPV 9.9 (9.4-12.3) fl SARS-CoV-2 RNA (SORIN) Negative (NEGATIVE) Blood Type O POSITIVE Gel Antibody Screen Negative Result Diagrams: 10/14/20 01:55 Sepsis Event Note - Focused Exam Vital Signs: Vital Signs Temp Temp Pulse Pulse Resp BP BP 10/14/20 06:24 89 10/14/20 06:16 90 10/14/20 05:42 100 10/14/20 05:12 80 15 110/75 10/14/20 04:34 36.6 C 67 14 102/68 10/14/20 04:00 36.4 C 76 16 104/77 10/14/20 03:45 75 16 106/71 10/14/20 03:30 36.6 C 77 12 103/62 10/14/20 03:14 36.4 C 88 17 109/67 Pulse Ox 10/14/20 06:24 94 L 10/14/20 06:16 96 10/14/20 05:42 97 10/14/20 05:12 98 10/14/20 04:34 99 10/14/20 04:00 98 10/14/20 03:45 100 10/14/20 03:30 98 10/14/20 03:14 96 - Problem List Review Problem List Initiated/Reviewed/Updated: Yes - My Orders Last 24 Hours: My Active Orders 10/14/20 01:49 Patient Status [ADT] Routine Resuscitation Status Routine 10/14/20 01:55 RAPID PLASMA REAGIN,RPR [CHEM] Routine 10/14/20 05:22 Acetaminophen/oxyCODONE [Percocet 325-5 MG] 1 tab PO Q4H PRN Acetaminophen/oxyCODONE [Percocet 325-5 MG] 2 tab PO Q4H PRN Dextrose 5%-Lactated Ringers 1,000 ml IV ASDIRECTED Docusate Sodium [Colace] 100 mg PO Q12H PRN Ketorolac [Toradol] 30 mg IVPUSH Q6H Naloxone [Narcan] 0.1 mg IVPUSH SEECOMMENT PRN diphenhydrAMINE [Benadryl] 25 mg IVPUSH Q6H PRN ePHEDrine [ePHEDrine sulfate] 5 mg IVPUSH SEECOMMENT PRN 10/14/20 05:22 Communication Order [RC] PER UNIT ROUTINE Communication Order [RC] PER UNIT ROUTINE Communication Order [RC] PER UNIT ROUTINE Notify Provider Intake and Out [RC] ASDIRECTED Vital Signs [RC] PER UNIT ROUTINE Assess Lochia [WOMSER] Per Unit Routine Assess Uterine Involution [WOMSER] Per Unit Routine Medication Administration Instruction [OM.PC] Routine 10/14/20 05:55 Lactated Ringers [Ringers, Lactated] 1,000 ml IV .BOLUS 10/14/20 06:10 CBC WITH AUTO DIFF [HEME] Stat 10/14/20 Breakfast Regular Diet [DIET] 10/14/20 23:22 Ibuprofen [Motrin] 600 mg PO Q6H PRN 10/15/20 03:30 Urinary Catheter Removal [RC] Per Unit Routine 10/15/20 03:31 CBC W/O DIFF,HEMOGRAM [HEME] Timed - Assessment Assessment:: Postop hypotension. Bedside ultrasound without any fluid collection. Improved now. IV bolus running. No significant vaginal bleeding. Incision excellent. H/H with fairly significant drop. However initial draw was before any IV fluids so I suspect some of the drop dilutional combined with moderate surgical blood loss. Will watch closely. Report given to Dr. Dahl. Continue bolus. Recheck CBC at noon or sooner if needed.
[2020-10-14] MEDS ORDERED: Ondansetron 4 MG/2 ML SDV IVPUSH PRN (08:19)
[2020-10-14] MEDS: Ketorolac 30 MG/ML SDV IVPUSH SCH ×2 (08:40→17:21)
[2020-10-14] MEDS: Ibuprofen 600 MG Tab PO PRN ×2 (16:25→22:05)
[2020-10-14] MEDS: Acetaminophen/oxyCODONE 325-5 MG Tab PO PRN (19:04)
[2020-10-15] MEDS: Acetaminophen/oxyCODONE 325-5 MG Tab PO PRN ×3 (00:30→12:24)
[2020-10-15] MEDS ORDERED: Ibuprofen 600 MG Tab PO PRN (03:00)
[2020-10-15] MEDS: Ibuprofen 600 MG Tab PO PRN ×3 (03:54→15:33)
[2020-10-15] MEDS ORDERED: Ondansetron 4 MG Tab.DIS PO PRN (08:28)
--- NOTE | 2020-10-15 11:28 | PCM.SN.2 ---
- Free Text/Narrative Note: Post Operative Progress Note POD #1 Subjective: Doing well overall. Ambulating without difficulty and not having any lightheadedness or dizziness this morning. Lochia minimal. Voiding without difficulty. Passing flatus and has not had a bowel movement at this time. Tolerating regular diet without nausea or vomiting. Pain controlled with oral medications. Breast-feeding with minimal difficulty. Objective: Vitals: Vital Signs - 24 hr 10/14/20 10/14/20 10/14/20 12:00 13:00 13:32 Temperature 36.6 C Pulse, 84 Peripheral Respiratory 15 16 15 Rate Blood Pressure 114/62 O2 Sat by Pulse 97 95 97 Oximetry 10/14/20 10/14/20 10/14/20 14:00 14:06 15:00 Temperature Pulse, Peripheral Respiratory 16 15 Rate Blood Pressure 116/64 O2 Sat by Pulse 97 96 Oximetry 10/14/20 10/14/20 10/14/20 15:59 16:59 18:00 Temperature Pulse, Peripheral Respiratory 15 15 16 Rate Blood Pressure O2 Sat by Pulse 95 96 97 Oximetry 10/14/20 10/14/20 10/14/20 19:00 20:20 21:00 Temperature 37.1 C Pulse, 89 Peripheral Respiratory 15 14 14 Rate Blood Pressure 103/62 O2 Sat by Pulse 93 L 94 L 94 L Oximetry 10/14/20 10/14/20 10/15/20 22:00 23:00 00:22 Temperature 36.3 C Pulse, 87 Peripheral Respiratory 14 14 16 Rate Blood Pressure 107/62 O2 Sat by Pulse 97 95 95 Oximetry 10/15/20 10/15/20 10/15/20 00:23 01:00 02:00 Temperature Pulse, 91 Peripheral Respiratory 16 14 Rate Blood Pressure O2 Sat by Pulse 95 97 95 Oximetry 10/15/20 10/15/20 03:24 08:11 Temperature 36.4 C 36.5 C Pulse, 89 86 Peripheral Respiratory 16 14 Rate Blood Pressure 118/60 119/62 O2 Sat by Pulse 94 L 96 Oximetry Physical Exam General: Alert and oriented, no acute distress Lungs: Clear to auscultation bilaterally Heart: Regular rate and rhythm Abdomen: Soft, minimal appropriate tenderness, non-distended, fundus midline, nontender and at the umbilicus Incision: Clean, dry and intact, no erythema, bleeding or drainage with Steri- Strips in place Extremities: No edema Labs: Laboratory Tests 10/14/20 10/14/20 10/14/20 Range/Units 01:55 01:55 01:55 WBC 11.42 H (3.98-10.04) K/mm3 RBC 3.85 L (3.98-5.22) M/mm3 Hgb 12.1 (11.2-15.7) gm/dl Hct 36.8 (34.1-44.9) % MCV 95.6 H (79.4-94.8) fl MCH 31.4 (25.6-32.2) pg MCHC 32.9 (32.2-35.5) g/dl RDW Std Deviation 45.9 (36.4-46.3) fL Plt Count 306 (182-369) K/mm3 MPV 9.9 (9.4-12.3) fl Neut % (Auto) (34.0-71.1) % Lymph % (Auto) (19.3-51.7) % [place] % (Auto) (4.7-12.5) % Eos % (Auto) (0.7-5.8) Baso % (Auto) (0.1-1.2) % Neut # (Auto) (1.56-6.13) K/mm3 Lymph # (Auto) (1.18-3.74) K/mm3 [place] # (Auto) (0.24-0.36) K/mm3 Eos # (Auto) (0.04-0.36) K/mm3 Baso # (Auto) (0.01-0.08) K/mm3 Manual Slide Review RPR Non-reactive (NONREACTIVE) SARS-CoV-2 RNA (SORIN) (NEGATIVE) Blood Type O POSITIVE Gel Antibody Screen Negative 10/14/20 10/14/20 10/14/20 Range/Units 01:55 06:10 12:07 WBC 15.22 H 10.89 H (3.98-10.04) K/mm3 RBC 2.89 L 2.34 L (3.98-5.22) M/mm3 Hgb 9.0 L D 7.2 L* D (11.2-15.7) gm/dl Hct 28.1 L 22.9 L (34.1-44.9) % MCV 97.2 H 97.9 H (79.4-94.8) fl MCH 31.1 30.8 (25.6-32.2) pg MCHC 32.0 L 31.4 L (32.2-35.5) g/dl RDW Std Deviation 45.6 45.1 (36.4-46.3) fL Plt Count 280 254 (182-369) K/mm3 MPV 9.7 9.2 L (9.4-12.3) fl Neut % (Auto) 83.3 H (34.0-71.1) % Lymph % (Auto) 11.9 L (19.3-51.7) % [place] % (Auto) 4.3 L (4.7-12.5) % Eos % (Auto) 0.3 L (0.7-5.8) Baso % (Auto) 0.1 (0.1-1.2) % Neut # (Auto) 12.66 H (1.56-6.13) K/mm3 Lymph # (Auto) 1.81 (1.18-3.74) K/mm3 [place] # (Auto) 0.66 H (0.24-0.36) K/mm3 Eos # (Auto) 0.05 (0.04-0.36) K/mm3 Baso # (Auto) 0.02 (0.01-0.08) K/mm3 Manual Slide Review Not Reportable RPR (NONREACTIVE) SARS-CoV-2 RNA (SORIN) Negative (NEGATIVE) Blood Type Gel Antibody Screen 10/15/20 Range/Units 03:30 WBC 7.92 (3.98-10.04) K/mm3 RBC 2.26 L (3.98-5.22) M/mm3 Hgb 7.1 L* (11.2-15.7) gm/dl Hct 22.3 L (34.1-44.9) % MCV 98.7 H (79.4-94.8) fl MCH 31.4 (25.6-32.2) pg MCHC 31.8 L (32.2-35.5) g/dl RDW Std Deviation 46.9 H (36.4-46.3) fL Plt Count 242 (182-369) K/mm3 MPV 9.4 (9.4-12.3) fl Neut % (Auto) (34.0-71.1) % Lymph % (Auto) (19.3-51.7) % [place] % (Auto) (4.7-12.5) % Eos % (Auto) (0.7-5.8) Baso % (Auto) (0.1-1.2) % Neut # (Auto) (1.56-6.13) K/mm3 Lymph # (Auto) (1.18-3.74) K/mm3 [place] # (Auto) (0.24-0.36) K/mm3 Eos # (Auto) (0.04-0.36) K/mm3 Baso # (Auto) (0.01-0.08) K/mm3 Manual Slide Review RPR (NONREACTIVE) SARS-CoV-2 RNA (SORIN) (NEGATIVE) Blood Type Gel Antibody Screen ASSESSMENT: 30-year-old female -2-3-4 s/p repeat section POD #1 for history of section and breech presentation, complicated by history of section with placental abruption, bicornuate uterus, history of delivery and tobacco use PLAN: Doing well Breast-feeding with minimal difficulty. Assist as needed Incision healing well. Continue to keep clean and dry. Lochia minimal. Continue to monitor for appropriate lochia. Continue routine post-operative care Patient with episode of hypotension in the PACU after her section. Patient had evaluations performed with significant drop in her blood count with a CBC that showed a hemoglobin of 7.2 yesterday in the afternoon and repeat value of 7.1 this morning. We will continue to monitor the patient closely and ensure that she is not having any symptoms due to this low hemoglobin level Possible discharge home this evening if she continues to do well without any lightheadedness or dizziness Frank Dahl MD 11:28 AM 10/15/2020
--- NOTE | 2020-10-15 14:26 | PCM48HPAN ---
Post Anesthesia Note - EVALUATION WITHIN 48HRS OF ANESTHETIC Vital Signs in Normal Range: Yes Patient Participated in Evaluation: Yes Respiratory Function Stable: Yes Airway Patent: Yes Cardiovascular Function Stable: Yes Hydration Status Stable: Yes Pain Control Satisfactory: Yes Nausea and Vomiting Control Satisfactory: Yes Mental Status Recovered: Yes Vital Signs: Last Vital Signs Temp 97.7 F 10/15/20 08:11 Pulse 86 10/15/20 08:11 Resp 14 10/15/20 08:11 BP 119/62 10/15/20 08:11 Pulse Ox 96 10/15/20 08:11 - COMMENTS/OBSERVATIONS Free Text/Narrative:: Patient on her postoperative day 1. Patient has stated understanding about possible backaches following epidural / spinal anesthesia. Patient denies any headache, lightheadedness or backache at this time. Ambulating, no difficulty urinating.
--- NOTE | 2020-10-15 17:05 | PCM.DCSUM1 ---
Discharge Summary - Hospital Course Free Text/Narrative:: - General Post-Op/Procedure Note Date of Surgery/Procedure: 10/14/20 Operative Procedure(s): repeat section Findings: viable male, weight 3430g, thad breech, 7#9oz at 0244. Bicornuate uterus. Baby on right side. Pre Op Diagnosis: breech, srom, labor, prior Post-Op Diagnosis: Same Anesthesia Technique: Spinal Primary Surgeon: Dipti Dykes Anesthesia Provider: Parmjit Leonard Plate Shop Helper: Nathalia Vincent Role of Plate Shop Helper: retraction, safety, to expedite procedure Fluid Replacement, Intraop: 1,300 Output, Urine Amount: 200 EBL in mLs: 600 Complications: None Condition: Good Free Text/Narrative:: Intake & Output 10/13/20 10/13/20 10/14/20 14:59 22:59 06:59 Output Total 200 Balance -200 The patient was taken to the operating room where spinal anesthesia was initiated and found to be adequate. The patient was prepped and draped in the usual sterile fashion in the dorsal supine position with a leftward tilt. A Pfannenstiel skin incision was made with the scalpel and carried through to the underlying layer of fascia. The fascia was incised in the midline and extended laterally using Mendes scissors. Joe clamps were used to elevate the superior aspect of the fascial incision, which was elevated, and the underlying rectus muscles were dissected off bluntly and using Mendes scissors. Attention was then turned to the inferior aspect of the fascial incision, which in similar fashion was grasped with Joe clamps, elevated, and the underlying rectus muscles were dissected off bluntly and using the mendes. The rectus muscles were dissected in the midline. The peritoneum was entered bluntly; this incision was extended superiorly and inferiorly with good visualization of the bladder. The bladder blade was inserted. The vesicouterine peritoneum was identified and entered sharply using Metzenbaum scissors. This incision was extended laterally and the bladder flap was created digitally. The bladder blade was reinserted. The lower uterine segment was incised in a transverse fashion using the scalpel and with digital traction. Clear fluid was noted. The infant was subsequently delivered easily with typical breech maneuvers. The cord was clamped and cut. The was subsequently handed to the awaiting diesel locomotive engineer whose presence had been requested.. The placenta was delivered by expression and was intact with a three-vessel cord noted. The uterus was exteriorized and cleared of all clots and debris. The uterine incision was repaired in 2 layers using 0 monocryl. Hemostasis was visualized. Hemostasis was visualized bilaterally. The uterus was returned to the abdomen. The uterine incision was reexamined and it was noted to be hemostatic. The pelvis was copiously irrigated. The fascia was closed with 1 PDS suture, and the skin was closed with 3-0 monocryl. Sponge, lap, and instrument counts were correct x2. The patient was stable at the completion of the procedure and was subsequently transferred to the recovery room in stable condition. Diagnosis: Stroke: No - Discharge Data Discharge Date: 10/15/20 Discharge Disposition: Home, Self-Care 01 Condition: Good - Referral to Home Health Primary Care Physician: Frank Dahl MD - Discharge Diagnosis/Problem(s) (1) 39 weeks gestation of SNOMED Code(s): 63262017 ICD Code: Z3A.39 - 39 WEEKS GESTATION OF Status: Acute Current Visit: No (2) Breech presentation SNOMED Code(s): 5531963 ICD Code: O32.1XX0 - MATERNAL CARE FOR BREECH PRESENTATION, UNSP Status: Acute Current Visit: No (3) History of delivery, currently SNOMED Code(s): 424509570, 312104486 ICD Code: O34.219 - MATERNAL CARE FOR UNSP TYPE SCAR FROM PREVIOUS DEL Status: Acute Current Visit: No (4) History of section SNOMED Code(s): 820311670 ICD Code: Z98.891 - HISTORY OF UTERINE SCAR FROM PREVIOUS SURGERY Status: Acute Current Visit: No (5) History of delivery SNOMED Code(s): 541038487 ICD Code: Z87.51 - PERSONAL HISTORY OF PRE-TERM LABOR Status: Acute Current Visit: No (6) History of delivery, currently SNOMED Code(s): 061883132, 103368889 ICD Code: O09.219 - SUPRVSN OF PREG W HISTORY OF PRE-TERM LABOR, UNSP TRIMESTER Status: Acute Current Visit: No (7) Tobacco use during SNOMED Code(s): 709270586157078 ICD Code: O99.330 - SMOKING (TOBACCO) COMPLICATING , UNSP TRIMESTER Status: Acute Current Visit: No - Patient Summary/Data Operative Procedure(s) Performed: repeat section Complications: Hypotensive episode in the immediate postop setting with low hemoglobin of 7.1 in the morning of POD #1 Consults: None Hospital Course: Jesus Mendoza was admitted for spontaneous rupture of membranes with clear fluid. She had evaluation performed and was noted to have minimal amount of fluid with the buttocks well engaged. Discussion was had with the patient and it was felt that an external cephalic version would be unlikely to be successful and she was consented for repeat section in the setting of breech presentation. She was taken back to the OR and given spinal injection for anesthesia. She was given Ancef 2 g IV for antibiotic prophylaxis. She was prepped and draped in the normal fashion. On 10/14/2020 she had a repeat delivery of a live male infant at 02:44. Apgars of 8 and 9. Weight of 3430 g (7 pounds 9.0 ounces). She was closed in a normal fashion. There were no complications with the procedure. Please see the operative report for full details. Her post operative course was complicated by hypotensive episode in the PACU. She was evaluated with CBC and was also placed into Trendelenburg position with IV fluids and ephedrine medications. Her initial CBC came back with hemoglobin of 9.0. The hemoglobin was rechecked later in the morning of POD #0 and her hemoglobin came back at 7.2. Her hemoglobin was again checked in the morning of POD #1 and it was 7.1 she was not having any significant symptoms due to the low hemoglobin. Her pain was well controlled and she had minimal lochia. She was ambulating, tolerating a regular diet and voiding normally. She was passing flatus and has not had a bowel movement. She was breast feeding without difficulty. She was afebrile and her hemoglobin was 7.1 on POD #1. She desired to be discharged home in the afternoon of POD #1.patient was felt to be stable for discharge in the afternoon of POD #1 despite her low hemoglobin. She was given appropriate warning signs to monitor for anemia that may require transfusion at home. She stated understanding. Her blood type is O+. - Patient Instructions Diet: Regular Diet as Tolerated Activity: Apply Ice, As Tolerated, No Lifting Over 20 Pounds Activity, Other: Nothing in the vagina for 6 weeks Driving: Do Not Drive (While taking narcotic medications or having significant pain) Showering/Bathing: May Shower Wound/Incision Care: Keep Operative Site/Wound Site Clean and Dry Notify Provider of: Fever, Increased Pain, Swelling and Redness, Drainage, Nausea and/or Vomiting Other/Special Instructions: Please contact your physician's office if you note any bleeding or pus coming from the abdominal incision. Please contact your physician's office if you have heavy vaginal bleeding enough to soak a pad in less than an hour for several hours. Monitor for any signs of an infection in the breasts with severe pain or redness of the breast. - Discharge Plan *PRESCRIPTION DRUG MONITORING PROGRAM REVIEWED*: Yes *COPY OF PRESCRIPTION DRUG MONITORING REPORT IN PATIENT VANE: No Prescriptions/Med Rec: Acetaminophen/oxyCODONE [Percocet 325-5 MG] 1 - 2 tab PO Q6H PRN #30 tablet PRN Reason: Pain Home Medications: Home Meds Cyclobenzaprine HCl 1 tab PO TID PRN 10/08/20 [History] Acetaminophen/oxyCODONE [Percocet 325-5 MG] 1 - 2 tab PO Q6H PRN #30 tablet 10/15/20 [Rx] Docusate Sodium [Colace] 100 mg PO Q12H PRN cap 10/15/20 [Rx] Ibuprofen [Motrin] 600 mg PO Q6H PRN tablet 10/15/20 [Rx] Ondansetron [Zofran ODT] 4 mg PO Q8H PRN tab.dis 10/15/20 [Rx] Patient Handouts: Delivery, Care After Referrals: Frank Dahl MD [Primary Care Provider] - (Follow-up in 2 weeks for routine postoperative visit or earlier as needed.) - Discharge Summary/Plan Comment DC Time >30 min.: No - Patient Data Vitals - Most Recent: Last Vital Signs Temp 36.5 C 10/15/20 08:11 Pulse 86 10/15/20 08:11 Resp 14 10/15/20 08:11 BP 119/62 10/15/20 08:11 Pulse Ox 96 10/15/20 08:11 Weight - Most Recent: 78.018 kg I&O - Last 24 hours: Intake & Output 02/10/15/20 10/15/20 06:59 14:59 22:59 Intake Total 1120 Output Total 250 Balance -250 1120 Lab Results - Last 24 hrs: Laboratory Results - last 24 hr 10/15/20 Range/Units 03:30 WBC 7.92 (3.98-10.04) K/mm3 RBC 2.26 L (3.98-5.22) M/mm3 Hgb 7.1 L* (11.2-15.7) gm/dl Hct 22.3 L (34.1-44.9) % MCV 98.7 H (79.4-94.8) fl MCH 31.4 (25.6-32.2) pg MCHC 31.8 L (32.2-35.5) g/dl RDW Std Deviation 46.9 H (36.4-46.3) fL Plt Count 242 (182-369) K/mm3 MPV 9.4 (9.4-12.3) fl Med Orders - Current: Current Medications Docusate Sodium (Colace) 100 mg PO Q12H PRN PRN Reason: Constipation Last Admin: 10/15/20 08:26 Dose: 100 mg Documented by: Ephedrine Sulfate (Ephedrine Sulfate) 5 mg IVPUSH SEECOMMENT PRN PRN Reason: Other Ibuprofen (Motrin) 600 mg PO Q6H PRN PRN Reason: Pain Last Admin: 10/15/20 15:33 Dose: 600 mg Documented by: Naloxone HCl (Narcan) 0.1 mg IVPUSH SEECOMMENT PRN PRN Reason: Respiratory Depression Ondansetron HCl (Zofran Odt) 4 mg PO Q8H PRN PRN Reason: Nausea/Vomiting Last Admin: 10/15/20 08:30 Dose: 4 mg Documented by: Oxycodone/Acetaminophen (Percocet 325-5 Mg) 1 tab PO Q4H PRN PRN Reason: Pain (moderate 4-6) Oxycodone/Acetaminophen (Percocet 325-5 Mg) 2 tab PO Q4H PRN PRN Reason: Pain (severe 7-10) Last Admin: 10/15/20 12:24 Dose: 2 tab Documented by: Discontinued Medications Ammonia (Aromatic Spirit) (Ammonia Aromatic Inhalant) Confirm Administered Dose 1 ampule .ROUTE .STK-MED ONE Stop: 10/14/20 05:57 Last Admin: 10/14/20 10:22 Dose: Not Given Documented by: Bupivacaine HCl (Marcaine 0.5%) Confirm Administered Dose 30 ml .ROUTE .K-MED ONE Stop: 10/14/20 02:02 Last Admin: 10/14/20 03:02 Dose: 20 ml Documented by: Cefazolin Sodium (Ancef) Confirm Administered Dose 2 gm .ROUTE .[facility]-MED ONE Stop: 10/14/20 01:57 Citric Acid/Sodium Citrate (Bicitra Solution) 30 ml PO ONETIME ONE Stop: 10/14/20 01:50 Last Admin: 10/14/20 02:15 Dose: 30 ml Documented by: Diphenhydramine HCl (Benadryl) 25 mg IVPUSH Q6H PRN PRN Reason: Itching or Nausea Cefazolin Sodium/Dextrose 2 gm (/ Premix) 50 mls @ 100 mls/hr IV ONETIME ONE Stop: 10/14/20 02:18 Last Admin: 10/14/20 17:20 Dose: Not Given Documented by: Lactated Ringer's (Ringers, Lactated) 1,000 mls @ 125 mls/hr IV ASDIRECTED [facility] Last Infusion: 10/14/20 04:30 Dose: 999 mls/hr Documented by: Azithromycin 500 mg/ Sodium (Chloride) 250 mls @ 250 mls/hr IV ONETIME STA Stop: 10/14/20 03:14 Last Admin: 10/14/20 17:20 Dose: Not Given Documented by: Dextrose/Lactated Ringer's (Dextrose 5%-Lactated Ringers) 1,000 mls @ 125 mls/hr IV ASDIRECTED [facility] Stop: 10/14/20 13:21 Lactated Ringer's (Ringers, Lactated) Confirm Administered Dose 1,000 mls @ as directed .ROUTE .[facility]-MED ONE Stop: 10/14/20 05:55 Last Admin: 10/14/20 08:31 Dose: Not Given Documented by: Lactated Ringer's (Ringers, Lactated) 1,000 mls @ 999 mls/hr IV .BOLUS ONE Stop: 10/14/20 06:55 Last Admin: 10/14/20 05:55 Dose: 999 mls/hr Documented by: Lactated Ringer's (Ringers, Lactated) 1,000 mls @ 125 mls/hr IV ASDIRECTED [facility] Last Admin: 10/14/20 07:00 Dose: 125 mls/hr Documented by: Lactated Ringer's (Ringers, Lactated) Confirm Administered Dose 1,000 mls @ as directed .ROUTE .STK-MED ONE Stop: 10/14/20 02:02 Ibuprofen (Motrin) 600 mg PO Q6H PRN PRN Reason: mild pain or fever Ketorolac Tromethamine (Toradol) 30 mg IVPUSH Q6H [facility] Stop: 10/14/20 17:23 Last Admin: 10/14/20 17:21 Dose: Not Given Documented by: Ketorolac Tromethamine (Toradol) 30 mg IVPUSH Q6H [facility] Stop: 10/14/20 21:01 Last Admin: 10/14/20 17:21 Dose: Not Given Documented by: Ketorolac Tromethamine (Toradol) Confirm Administered Dose 30 mg .ROUTE .STK-MED ONE Stop: 10/14/20 02:44 Metoclopramide HCl (Reglan) 10 mg IVPUSH ONETIME ONE Stop: 10/14/20 01:50 Last Admin: 10/14/20 02:15 Dose: 10 mg Documented by: Morphine Sulfate (Duramorph Pf) Confirm Administered Dose 10 mg .ROUTE .STK-MED ONE Stop: 10/14/20 01:57 Ondansetron HCl (Zofran) Confirm Administered Dose 4 mg .ROUTE .STK-MED ONE Stop: 10/14/20 03:32 Last Admin: 10/14/20 03:35 Dose: 4 mg Documented by: Ondansetron HCl (Zofran) 4 mg IVPUSH Q4HR PRN PRN Reason: Nausea Last Admin: 10/14/20 08:37 Dose: 4 mg Documented by: Oxytocin (Pitocin) Confirm Administered Dose 10 unit .ROUTE .STK-MED ONE Stop: 10/14/20 02:44 Phenylephrine HCl (Eliecer-Synephrine) Confirm Administered Dose 10 mg .ROUTE .STK- MED ONE Stop: 10/14/20 01:57 Sodium Chloride (Saline Flush) 10 ml FLUSH ASDIRECTED PRN PRN Reason: Keep Vein Open
[2020-10-15 18:00] VITALS: BP 115/63; PULSE 96
== END 2020-10-15 17:22 | disposition home or self-care (01) | DRG 788 ==
LOC: JD.OBCHECK 01:15 → JD.OB 01:15 → JD.OBCHECK 01:48 → JD.OB 01:49 → EDSTATUS 10-18 08:00
PROVIDERS: ADMIT Obstetrics & Gynecology; ATTEND Obstetrics & Gynecology
PROC: 10D00Z1 Extraction of Products of Conception, Low, Open Approach (ICD-10-PCS; principal; 2020-10-14)
DX: O34.211 Maternal care for low transverse scar from previous cesarean delivery (principal); Z37.0 Single live birth; O32.1XX0 Maternal care for breech presentation, not applicable or unspecified; Z87.51 Personal history of pre-term labor; O99.334 Smoking (tobacco) complicating childbirth; F17.210 Nicotine dependence, cigarettes, uncomplicated; I95.81 Postprocedural hypotension; Z3A.38 38 weeks gestation of pregnancy; Z91.040 Latex allergy status; Z88.0 Allergy status to penicillin; Z88.5 Allergy status to narcotic agent; Z88.1 Allergy status to other antibiotic agents; Z20.822 Contact with and (suspected) exposure to COVID-19; O34.03 Maternal care for unspecified congenital malformation of uterus, third trimester; Q51.3 Bicornate uterus
CPT/HCPCS: 01961; 36415; 59025; 85025; 85027; 86592; 86850; 86900; 86901; A9270-GY; J0690; J1885; J2270; J2370; J2405; J2590; J2765; J3490; J7120; U0002

== ENCOUNTER 2020-10-28 07:38 | Emergency (ER) | payer OTHER, SELFPAY ==
--- NOTE | 2020-10-28 08:18 | EDM.PDOC ---
ED HPI GENERAL MEDICAL PROBLEM - General Chief Complaint: Flank Pain Stated Complaint: FLANK PAIN Time Seen by Provider: 10/28/20 08:17 - History of Present Illness INITIAL COMMENTS - FREE TEXT/NARRATIVE: 30-year-old female presents the emergency room with left-sided flank pain. Patient is 9 days . She developed a UTI probably from the catheter she received for her . She is taking Macrobid. Yesterday she was feeling well. Went to bed without any problems she awoke this morning at about 2 AM with sudden onset flank pain reminding her of the multiple kidney stones she has had in the past. The patient used to take Flomax on a regular basis however at the onset of her she decided to stop taking it and has not resumed it. The patient has not had any fevers or chills no associated nausea v omiting. All her pain is on the left side she still has some intermittent discomfort with voiding. Left Flank Pain Score (Numeric/FACES): 7 - Related Data Allergies Allergy/AdvReac Type Severity Reaction Status Date / Time diphenhydramine HCl Allergy Severe Hives Verified 10/28/20 07:53 [From Benadryl] latex Allergy Severe Swelling Verified 10/28/20 07:53 Penicillins Allergy Severe Airway Verified 10/28/20 07:53 Tightness tetracycline [Tetracycline] Allergy Severe Airway Verified 10/28/20 07:53 Tightness tramadol Allergy Severe Hives Verified 10/28/20 07:53 Home Meds: Home Meds Cyclobenzaprine HCl 1 tab PO TID PRN 10/08/20 [History] Acetaminophen/oxyCODONE [Percocet 325-5 MG] 1 - 2 tab PO Q6H PRN #30 tablet 10/15/20 [Rx] Docusate Sodium [Colace] 100 mg PO Q12H PRN cap 10/15/20 [Rx] Ibuprofen [Motrin] 600 mg PO Q6H PRN tablet 10/15/20 [Rx] Ondansetron [Zofran ODT] 4 mg PO Q8H PRN tab.dis 10/15/20 [Rx] Cefdinir [Omnicef] 300 mg PO BID #14 cap 10/28/20 [Rx] Past Medical History - Past Health History Medical/Surgical History: Denies Medical/Surgical History HEENT History: Reports: Impaired Vision Other HEENT History: wears glasses Cardiovascular History: Reports: None Respiratory History: Reports: None Gastrointestinal History: Reports: GERD Genitourinary History: Reports: Renal Calculus COLLEGE TEACHER History: Reports: , Spontaneous , Other (See Below) Other COLLEGE TEACHER History: Musculoskeletal History: Reports: Other (See Below) Other Musculoskeletal History: left wrist ganglion cyst Neurological History: Reports: None Psychiatric History: Reports: Anxiety, Depression, OCD, Panic Attack Endocrine/Metabolic History: Reports: None Hematologic History: Reports: None Immunologic History: Reports: None Oncologic (Cancer) History: Reports: None Dermatologic History: Reports: None - Infectious Disease History Infectious Disease History: Reports: None - Past Surgical History Head Surgeries/Procedures: Reports: None HEENT Surgical History: Reports: Oral Surgery Cardiovascular Surgical History: Reports: None Respiratory Surgical History: Reports: None GI Surgical History: Reports: EGD Female Surgical History: Reports: Section, Lithotripsy/ESWL Endocrine Surgical History: Reports: None Neurological Surgical History: Reports: None Musculoskeletal Surgical History: Reports: Ganglion Cyst Oncologic Surgical History: Reports: Bone Marrow Transplant Dermatological Surgical History: Reports: None Social & Family History - Family History Family Medical History: No Pertinent Family History - Tobacco Use Tobacco Use Status *Q: Current Every Day Tobacco User Years of Tobacco use: 12 Packs/Tins Daily: 0.2 - Caffeine Use Caffeine Use: Reports: Coffee Other Caffeine Use: daily - Recreational Drug Use Recreational Drug Use: No - Living Situation & Occupation Living situation: Reports: , with Spouse, with Family (3 kids) Occupation: Unemployed ED ROS GENERAL - Review of Systems Review Of Systems: See Below Constitutional: Reports: No Symptoms Respiratory: Reports: No Symptoms Cardiovascular: Reports: No Symptoms GI/Abdominal: Reports: Abdominal Pain. Denies: Constipation, Diarrhea : Reports: Dysuria, Flank Pain. Denies: Frequency, Urgency Musculoskeletal: Reports: No Symptoms Skin: Reports: No Symptoms Neurological: Reports: No Symptoms Psychiatric: Reports: No Symptoms ED EXAM, GENERAL - Physical Exam Exam: See Below Exam Limited By: No Limitations General Appearance: Alert, No Apparent Distress Head: Atraumatic, Normocephalic Neck: Normal Inspection, Supple, Non-Tender, Full Range of Motion Respiratory/Chest: No Respiratory Distress, Lungs Clear, Normal Breath Sounds Cardiovascular: Regular Rate, Rhythm, No Edema, No Murmur GI/Abdominal: Normal Bowel Sounds, Soft, Other (Patient is some left-sided abdominal discomfort. No right-sided tenderness with palpation on the left side she has radiating flank pain with pressure on the left side no rigidity rebound or guarding appreciated. Mild suprapubic discomfort.) Back Exam: Normal Inspection. No: CVA Tenderness (L), CVA Tenderness (R) Neurological: Alert, Oriented, Normal Cognition Course - Vital Signs Last Recorded V/S: Last Vital Signs Temp 36.4 C 10/28/20 07:49 Pulse 81 10/28/20 07:49 Resp 16 10/28/20 07:49 BP 132/76 10/28/20 07:49 Pulse Ox 95 10/28/20 07:49 - Orders/Labs/Meds Orders: Active Orders 24 hr Category Date Time Status CULTURE URINE [RM] Stat Lab 10/28/20 09:20 Received Lactated Ringers [Ringers, Lactated] 1,000 ml Med 10/28/20 08:45 Active IV ASDIRECTED cefTRIAXone [Rocephin] 1 gm Med 10/28/20 10:30 Active Sodium Chloride 0.9% [Normal Saline] 100 ml IV Q24H Labs: Laboratory Tests 10/28/20 10/28/20 10/28/20 Range/Units 08:55 08:55 09:20 WBC 8.82 (3.98-10.04) K/mm3 RBC 3.07 L (3.98-5.22) M/mm3 Hgb 9.5 L D (11.2-15.7) gm/dl Hct 30.8 L (34.1-44.9) % MCV 100.3 H (79.4-94.8) fl MCH 30.9 (25.6-32.2) pg MCHC 30.8 L (32.2-35.5) g/dl RDW Std Deviation 50.0 H (36.4-46.3) fL Plt Count 715 H D (182-369) K/mm3 MPV 8.5 L (9.4-12.3) fl Neut % (Auto) 77.2 H (34.0-71.1) % Lymph % (Auto) 16.3 L (19.3-51.7) % [place] % (Auto) 4.4 L (4.7-12.5) % Eos % (Auto) 1.5 (0.7-5.8) Baso % (Auto) 0.5 (0.1-1.2) % Neut # (Auto) 6.81 H (1.56-6.13) K/mm3 Lymph # (Auto) 1.44 (1.18-3.74) K/mm3 [place] # (Auto) 0.39 H (0.24-0.36) K/mm3 Eos # (Auto) 0.13 (0.04-0.36) K/mm3 Baso # (Auto) 0.04 (0.01-0.08) K/mm3 Manual Slide Review Abnormal smear Sodium 145 (136-145) mEq/L Potassium 3.9 (3.5-5.1) mEq/L Chloride 109 H (98-107) mEq/L Carbon Dioxide 25 (21-32) mEq/L Anion Gap 14.9 (5-15) BUN 16 (7-18) mg/dL Creatinine 0.6 (0.55-1.02) mg/dL Est Cr Clr Drug Dosing 108.43 mL/min Estimated GFR (MDRD) > 60 (>60) mL/min BUN/Creatinine Ratio 26.7 H (14-18) Glucose 75 (74-106) mg/dL Calcium 8.6 (8.5-10.1) mg/dL Total Bilirubin 0.3 (0.2-1.0) mg/dL AST 29 (15-37) U/L ALT 30 (14-59) U/L Alkaline Phosphatase 87 (46-116) U/L Total Protein 6.6 (6.4-8.2) g/dl Albumin 3.2 L (3.4-5.0) g/dl Globulin 3.4 gm/dL Albumin/Globulin Ratio 0.9 L (1-2) Urine Color Yellow (Yellow) Urine Appearance Clear (Clear) Urine pH 6.5 (5.0-8.0) Ur Specific [place] 1.020 (1.005-1.030) Urine Protein Negative (Negative) Urine Glucose (UA) Negative (Negative) Urine Ketones Negative (Negative) Urine Occult Blood 3+ H (Negative) Urine Nitrite Negative (Negative) Urine Bilirubin Negative (Negative) Urine Urobilinogen 0.2 (0.2-1.0) Ur Leukocyte Esterase 1+ H (Negative) Urine RBC >100 H (0-5) /hpf Urine WBC 10-20 H (0-5) /hpf Ur Squamous Epith Cells 0-5 (0-5) /hpf Urine Bacteria Moderate H (FEW) /hpf Urine Mucus Few (FEW) /hpf - Re-Assessments/Exams Free Text/Narrative Re-Assessment/Exam: 10/28/20 08:40 We will check some labs and a UA unfortunately with her history of kidney stones and currently taking antibiotics for UTI we must check a CT to answer the question is is she does has stone and needs to be dealt with quickly. 10/28/20 10:28 Patient does not have a kidney stone according to the CT and the ureter she is got multiple nonobstructing stones within the kidneys. Clinically her urinary tract infection seems to be getting worse her culture and sensitivity grew out mixed herminia suggestive of contamination. Urine looks suggestive of UTI. I will give the patient a gram of Rocephin. And anticipate changing her over to third- generation cephalosporin oral therapy 10/28/20 11:45 Patient is feeling better and would like to go home. She has received the Rocephin and no adverse side effects from this. We will start her on Omnicef. I attempted to discuss the patient's case with [facility] in [place] where she sees a urologist however no urology coverage until 5:00 this evening. Departure - Departure Time of Disposition: 11:49 Disposition: Home, Self-Care 01 Clinical Impression: UTI, Urinary tract infectious disease Clinical Impression: (Ruled Out): Pyelonephritis - Discharge Information Referrals: PCP,None [Primary Care Provider] - Forms: ED Department Discharge Additional Instructions: Return to the emergency room with any questions problems or worsening symptoms. You will be started on an antibiotic start this tomorrow morning take 1 3 times a day until all gone. Follow-up with your urologist by the middle of this next week for recheck. If you cannot get into see your urologist see your plate glass installer. While taking the antibiotics do not take your supplemental iron. Sepsis Event Note (ED) - Evaluation Sepsis Screening Result: No Definite Risk - Focused Exam Vital Signs: Vital Signs Temp Pulse Resp BP Pulse Ox 10/28/20 07:49 36.4 C 81 16 132/76 95 - My Orders Last 24 Hours: My Active Orders 10/28/20 08:45 Lactated Ringers [Ringers, Lactated] 1,000 ml IV ASDIRECTED 10/28/20 09:20 CULTURE URINE [RM] Stat 10/28/20 10:30 cefTRIAXone [Rocephin] 1 gm Sodium Chloride 0.9% [Normal Saline] 100 ml IV Q24H - Assessment/Plan Last 24 Hours: My Active Orders 10/28/20 08:45 Lactated Ringers [Ringers, Lactated] 1,000 ml IV ASDIRECTED 10/28/20 09:20 CULTURE URINE [RM] Stat 10/28/20 10:30 cefTRIAXone [Rocephin] 1 gm Sodium Chloride 0.9% [Normal Saline] 100 ml IV Q24H
[2020-10-28] MEDS ORDERED: fentaNYL 100 MCG/2 ML SDV IVPUSH ONE (08:41)
[2020-10-28] MEDS ORDERED: Lactated Ringers 1,000 ML IV SCH (08:45)
--- NOTE | 2020-10-28 09:30 | CT ---
CT abdomen and pelvis Technique: Multiple axial sections were obtained from above the dome of the diaphragm inferiorly to the pubic symphysis. Intravenous and oral contrast was not utilized. Study has been performed as a ureteral stone protocol. Reconstructed coronal and sagittal images were obtained. Comparison: No prior abdominal imaging is available. Findings: Visualized lung bases show nothing acute. Liver contains no focal parenchymal abnormality. Spleen appears within normal limits. Adrenal glands show no nodule. Kidneys show multiple nonobstructing calculi. Ureters show no abnormal calcifications or dilatation. Phlebolith is noted within the pelvis. Gallbladder contains no calcified gallstones. Abdominal aorta shows no aneurysm. No retroperitoneal adenopathy or mesenteric abnormalities are seen. No pelvic mass or adenopathy is appreciated. Uterus appears to have some fibroid change. This is not well appreciated because of lack of contrast. Mild increased stool is seen throughout the colon. Appendix is partially visualized and shows no definite inflammatory change. Bone window settings were reviewed which show no acute osseous finding. Impression: 1. Multiple small nonobstructing calculi within both kidneys. No ureteral dilatation or ureteral stone is seen. 2. Enlarged uterus with what appears to be fibroid change. This is not well appreciated without contrast. 3. Slight increased stool within the colon. Diagnostic code #3
[2020-10-28] MEDS ORDERED: cefTRIAXone 1 GM in Sodium Chloride 0.9% 100 ML IV SCH (10:30)
[2020-10-28 12:37] VITALS: BP 115/74; PULSE 88
== END 2020-10-28 12:25 | disposition home or self-care (01) ==
LOC: JD.ED 07:38
DX: N39.0 Urinary tract infection, site not specified (principal); Z88.8 Allergy status to other drugs, medicaments and biological substances; Z91.040 Latex allergy status; Z88.0 Allergy status to penicillin; Z88.1 Allergy status to other antibiotic agents; Z88.5 Allergy status to narcotic agent; Z72.0 Tobacco use
CPT/HCPCS: 36415; 74176; 80053; 81001; 85025; 87086; 96365; 96375; 99284; J0696; J3010; J7120; 99283

== ENCOUNTER 2021-08-24 12:59 | Day surgery (SDC) | payer OTHER ==
[~2021-08-24 12:59] MED LIST changes: +Lactated Ringers 1,000 ML ONE; -Lidocaine 0.5% 50 ML SDV ONE; -Lidocaine 1% 2 ML ONE; +Lidocaine 1% 4 ML ONE; -Sodium Bicarbonate 8.4% 50 MEQ/50 ML SDV ONE; -Sodium Chloride 0.9% 10 ML Syringe FLUSH PRN; +Sodium Chloride 0.9% 10 ML Syringe FLUSH SCH
[2021-08-24] MEDS ORDERED: Lactated Ringers 1,000 ML ONE (13:00)
[2021-08-24] MEDS ORDERED: Bupivacaine 0.25% 10 ML SDV ONE (13:03)
[2021-08-24 14:41] VITALS: PULSE 76
[2021-08-24 14:42] VITALS: BP 106/58
== END 2021-08-24 14:32 | disposition home or self-care (01) ==
LOC: JD.SDS 12:59
PROVIDERS: ATTEND Orthopaedic Surgery
DX: M65.4 Radial styloid tenosynovitis [de Quervain] (principal); F17.210 Nicotine dependence, cigarettes, uncomplicated; F41.8 Other specified anxiety disorders; K21.9 Gastro-esophageal reflux disease without esophagitis; F42.9 Obsessive-compulsive disorder, unspecified; N20.0 Calculus of kidney; Z86.16 Personal history of COVID-19; Z88.8 Allergy status to other drugs, medicaments and biological substances; Z88.0 Allergy status to penicillin; Z91.040 Latex allergy status; Z79.899 Other long term (current) drug therapy; Z98.890 Other specified postprocedural states
CPT/HCPCS: 25118; 81025; 87641; J0690; J2250; J2704; J3010; J3490; J7120; 01810

== ENCOUNTER 2021-11-27 09:04 | Emergency (ER) | payer OTHER ==
[2021-11-27] MEDS ORDERED: Ondansetron 4 MG/2 ML SDV IVPUSH ONE (09:37)
[2021-11-27] MEDS ORDERED: Sodium Chloride 0.9% 10 ML Syringe FLUSH PRN (09:37)
[2021-11-27] MEDS ORDERED: HYDROmorphone 1 MG/ML Syringe IVPUSH ONE (09:39)
[2021-11-27] MEDS ORDERED: Sodium Chloride 0.9% 1,000 ML IV SCH (09:45)
[2021-11-27] MEDS ORDERED: HYDROmorphone 0.5 MG/0.5 ML Syringe IVPUSH ONE ×2 (11:11→13:20)
[2021-11-27 13:45] VITALS: BP 132/78; PULSE 86
== END 2021-11-27 13:45 | disposition home or self-care (01) ==
LOC: JD.ED 09:04
DX: O99.891 Other specified diseases and conditions complicating pregnancy (principal); R10.31 Right lower quadrant pain; Z3A.08 8 weeks gestation of pregnancy; Z88.0 Allergy status to penicillin; Z88.1 Allergy status to other antibiotic agents; Z91.040 Latex allergy status
CPT/HCPCS: 36415; 76817; 80053; 81001; 83690; 85025; 96374; 96375; 96376; 99284; J1170; J2405; J3490; J7030

== ENCOUNTER 2022-02-07 16:27 | Observation (INO) | payer OTHER ==
[2022-02-07] MEDS ORDERED: Sodium Chloride 0.9% 10 ML Syringe FLUSH PRN (16:53)
[2022-02-07] MEDS ORDERED: Nalbuphine HCl 10 MG/ 1ML Amp IVPUSH PRN (16:53)
[2022-02-07] MEDS ORDERED: Misoprostol 200 MCG Tab VAG ONE (16:55)
[2022-02-07] MEDS ORDERED: Lactated Ringers 1,000 ML IV SCH (17:00)
[2022-02-07 18:32] VITALS: BP 119/67; PULSE 106
[2022-02-07] MEDS: Acetaminophen 325 MG Tab PO PRN (18:46)
[2022-02-07 18:54] LABS: HEMOGLOBIN A1C 4.9 %
[2022-02-07] MEDS: Misoprostol 200 MCG Tab VAG SCH ×2 (20:26→23:33)
[2022-02-07] MEDS ORDERED: Sodium Chloride 0.9% 10 ML Syringe FLUSH SCH (21:00)
[2022-02-07] MEDS: HYDROmorphone 1 MG/ML Syringe IVPUSH PRN (21:42)
[2022-02-08] MEDS: HYDROmorphone 1 MG/ML Syringe IVPUSH PRN (00:25)
[2022-02-08] MEDS: Misoprostol 200 MCG Tab VAG SCH ×2 (02:28→06:08)
[2022-02-08] MEDS: Acetaminophen 325 MG Tab PO PRN (03:43)
== END 2022-02-08 07:41 | disposition home or self-care (01) ==
LOC: JD.OBCHECK 16:27 → JD.OB 16:30 → JD.OBCHECK 17:46
PROVIDERS: ADMIT Obstetrics & Gynecology; ATTEND Obstetrics & Gynecology
DX: O03.9 Complete or unspecified spontaneous abortion without complication (principal); O99.332 Smoking (tobacco) complicating pregnancy, second trimester; F17.210 Nicotine dependence, cigarettes, uncomplicated; O34.219 Maternal care for unspecified type scar from previous cesarean delivery; Z3A.15 15 weeks gestation of pregnancy; Z88.1 Allergy status to other antibiotic agents; Z88.5 Allergy status to narcotic agent; Z88.0 Allergy status to penicillin; Z91.040 Latex allergy status
CPT/HCPCS: 59409; 83036; 84439; 84443; 85025; 85460; 85613; 85730; 86146; 86147; 86592; 86850; 86900; 86901; 96374; 96375; 96376; A9270; G0378; J1170; J2300; 36415

== ENCOUNTER 2022-02-27 20:51 | Emergency (ER) | payer OTHER ==
[2022-02-27] MEDS ORDERED: Ketorolac 30 MG/ML SDV IVPUSH ONE (21:27)
[2022-02-27] MEDS ORDERED: Sodium Chloride 0.9% 10 ML Syringe FLUSH PRN (21:27)
[2022-02-27] MEDS ORDERED: Sodium Chloride 0.9% 1,000 ML IV STA (21:27)
[2022-02-27] MEDS ORDERED: Ondansetron 4 MG/2 ML SDV IVPUSH ONE (21:27)
[2022-02-27] MEDS ORDERED: HYDROmorphone 0.5 MG/0.5 ML Syringe IVPUSH ONE (22:40)
[2022-02-27] MEDS ORDERED: Acetaminophen Soln 650 MG/20.3 ML UD Cup PO ONE (22:43)
[2022-02-27 22:48] LABS: ESTIMATED GFR 100 mL/min (>60)
[2022-02-28 01:22] VITALS: BP 107/60; PULSE 74
== END 2022-02-27 23:44 | disposition home or self-care (01) ==
LOC: JD.ED 20:51 → SUPCPDRO 20:51 → JD.ED 23:44
DX: O20.9 Hemorrhage in early pregnancy, unspecified (principal); O99.891 Other specified diseases and conditions complicating pregnancy; R51.9 Headache, unspecified; O99.332 Smoking (tobacco) complicating pregnancy, second trimester; F17.210 Nicotine dependence, cigarettes, uncomplicated; Z91.040 Latex allergy status; Z88.0 Allergy status to penicillin; Z88.6 Allergy status to analgesic agent; Z88.2 Allergy status to sulfonamides; Z3A.16 16 weeks gestation of pregnancy
CPT/HCPCS: 36415; 70450; 76830; 80053; 81001; 83735; 84702; 85025; 86140; 96361; 96374; 96375; 99284; A9270; J1170; J1885; J2405; J3490; J7030

== ENCOUNTER 2022-03-13 09:51 | Emergency (ER) | payer OTHER ==
[2022-03-13] MEDS ORDERED: Sodium Chloride 0.9% 10 ML Syringe FLUSH PRN (10:38)
[2022-03-13] MEDS ORDERED: Ketorolac 30 MG/ML SDV IVPUSH ONE (10:40)
[2022-03-13] MEDS ORDERED: Prochlorperazine 10 MG/2 ML SDV IVPUSH ONE (10:40)
[2022-03-13] MEDS ORDERED: HYDROmorphone 0.5 MG/0.5 ML Syringe IVPUSH ONE (10:41)
[2022-03-13] MEDS ORDERED: Sodium Chloride 0.9% 1,000 ML IV SCH (10:45)
[2022-03-13 14:16] VITALS: BP 93/61; PULSE 66
== END 2022-03-13 13:25 | disposition home or self-care (01) ==
LOC: JD.ED 09:51
DX: O20.9 Hemorrhage in early pregnancy, unspecified (principal); O99.891 Other specified diseases and conditions complicating pregnancy; R51.9 Headache, unspecified; O99.332 Smoking (tobacco) complicating pregnancy, second trimester; F17.210 Nicotine dependence, cigarettes, uncomplicated; Z3A.18 18 weeks gestation of pregnancy; Z91.040 Latex allergy status; Z88.0 Allergy status to penicillin; Z88.1 Allergy status to other antibiotic agents; Z86.16 Personal history of COVID-19
CPT/HCPCS: 36415; 76830; 80053; 81001; 84702; 85025; 96361; 96374; 96375; 99284; J0780; J1170; J1885; J3490; J7030; 99283

== ENCOUNTER 2023-01-15 10:59 | Observation (INO) | payer OTHER ==
[2023-01-15 11:25] VITALS: BP 116/72; PULSE 97
== END 2023-01-15 12:15 | disposition home or self-care (01) ==
LOC: JD.OB 10:59
PROVIDERS: ADMIT Obstetrics & Gynecology; ATTEND Obstetrics & Gynecology
DX: O36.8130 Decreased fetal movements, third trimester, not applicable or unspecified (principal); Z3A.37 37 weeks gestation of pregnancy
CPT/HCPCS: 59025

== ENCOUNTER 2023-01-29 05:23 | Inpatient (IN) | payer OTHER ==
[2023-01-29] MEDS ORDERED: Terbutaline 1 MG/ML SDV IV ONE (06:08)
[2023-01-29] MEDS ORDERED: Sodium Chloride 0.9% 10 ML Syringe FLUSH PRN (06:08)
[2023-01-29] MEDS ORDERED: Lactated Ringers 1,000 ML IV SCH (06:15)
[2023-01-29 06:53] LABS: BASOPHILS ABSOLUTE AUTO 0.02 K/mm3 (0.01-0.08); BASOPHILS PERCENT AUTO 0.2 % (0.1-1.2); EOSINOPHILS ABSOLUTE AUTO 0.04 K/mm3 (0.04-0.36); EOSINOPHILS PERCENT AUTO 0.3 (0.7-5.8); HEMATOCRIT 36.7 % (34.1-44.9); HEMOGLOBIN 12.3 gm/dl (11.2-15.7); IMMATURE GRAN ABSOLUTE AUTO 0.02 K/mm3 (0.00-0.10); IMMATURE GRAN PERCENT AUTO 0.2 % (<=1.0); LYMPHOCYTES ABSOLUTE AUTO 1.56 K/mm3 (1.18-3.74); LYMPHOCYTES PERCENT AUTO 13.3 % (19.3-51.7); MEAN CORPUSCULAR HEMOGLOBIN 32.3 pg (25.6-32.2); MEAN CORPUSCULAR HGB CONC 33.5 g/dl (32.2-35.5); MEAN CORPUSCULAR VOLUME 96.3 fl (79.4-94.8); MEAN PLATELET VOLUME 10.1 fl (9.4-12.3); MONOCYTES PERCENT AUTO 4.3 % (4.7-12.5); NEUTROPHILS ABSOLUTE AUTO 9.57 K/mm3 (1.56-6.13); NEUTROPHILS PERCENT AUTO 81.7 % (34.0-71.1); PLATELET COUNT,PLT 287 K/mm3 (182-369); RED BLOOD CELL COUNT 3.81 M/mm3 (3.98-5.22); WHITE BLOOD CELL COUNT,WBC 11.71 K/mm3 (3.98-10.04)
[2023-01-29] MEDS ORDERED: Metoclopramide 10 MG/2 ML SDV IVPUSH PRN (07:20)
[2023-01-29] MEDS ORDERED: Citric Acid/Sodium Citrate Solution 30 ML Cup PO ONE (07:21)
[2023-01-29] MEDS: Nicotine 14 MG/24 Hr Patch TRDERM SCH ×2 (07:30→14:23)
[2023-01-29] MEDS ORDERED: Phenylephrine 1% 10 MG/ML SDV ONE (07:35)
[2023-01-29] MEDS ORDERED: fentaNYL 100 MCG/2 ML SDV ONE ×2 (07:46→08:38)
[2023-01-29] MEDS ORDERED: Lidocaine 2% with EPINEPHrine 1:200,000 20 ML SDV ONE (08:00)
[2023-01-29] MEDS ORDERED: Oxytocin 10 Units/1 ML SDV ONE (08:00)
[2023-01-29] MEDS ORDERED: Lidocaine 1.5% with EPINEPHrine 1:200,000 5 ML Amp ONE (08:00)
[2023-01-29] MEDS ORDERED: Bupivacaine 0.5% 30 ML SDV ONE (08:15)
[2023-01-29] MEDS ORDERED: Propofol 200 MG/20 ML SDV ONE (08:20)
[2023-01-29] MEDS ORDERED: ceFAZolin 2 GM Vial ONE (08:20)
[2023-01-29] MEDS ORDERED: Ketorolac 15 MG/ML SDV ONE (08:47)
[2023-01-29] MEDS ORDERED: Lidocaine 1% 2 ML ONE (08:48)
[2023-01-29] MEDS ORDERED: Sodium Chloride 0.9% 10 ML Syringe FLUSH SCH (09:00)
[2023-01-29] MEDS ORDERED: Meperidine 50 MG/ML Vial IVPUSH PRN (09:19)
[2023-01-29] MEDS ORDERED: Ondansetron 4 MG/2 ML SDV IVPUSH PRN (09:19)
[2023-01-29] MEDS ORDERED: fentaNYL 100 MCG/2 ML SDV IVPUSH PRN (09:19)
[2023-01-29] MEDS ORDERED: Ondansetron 4 MG/2 ML SDV IV PRN (09:25)
[2023-01-29] MEDS ORDERED: ePHEDrine 50 MG/ML SDV IVPUSH PRN (09:25)
[2023-01-29] MEDS ORDERED: Naloxone 0.4 MG/ML SDV IVPUSH PRN (09:25)
[2023-01-29] MEDS ORDERED: Dextrose 5%-Lactated Ringers 1,000 ML IV SCH (09:30)
[2023-01-29] MEDS ORDERED: Nalbuphine 10 MG/0.5 ML Syringe IVPUSH PRN (09:36)
[2023-01-29] MEDS ORDERED: Acetaminophen/oxyCODONE 325-5 MG Tab PO PRN (12:18)
[2023-01-29] MEDS: Ketorolac 30 MG/ML SDV IVPUSH SCH ×2 (14:29→21:01)
[2023-01-29] MEDS: Acetaminophen/oxyCODONE 325-5 MG Tab PO PRN ×2 (15:33→21:01)
[2023-01-30] MEDS: Ketorolac 30 MG/ML SDV IVPUSH SCH (03:45)
[2023-01-30] MEDS: Acetaminophen/oxyCODONE 325-5 MG Tab PO PRN ×3 (03:45→16:15)
[2023-01-30 06:27] LABS: BASOPHILS ABSOLUTE AUTO 0.02 K/mm3 (0.01-0.08); BASOPHILS PERCENT AUTO 0.2 % (0.1-1.2); EOSINOPHILS ABSOLUTE AUTO 0.08 K/mm3 (0.04-0.36); EOSINOPHILS PERCENT AUTO 0.9 (0.7-5.8); HEMATOCRIT 32.8 % (34.1-44.9); IMMATURE GRAN ABSOLUTE AUTO 0.01 K/mm3 (0.00-0.10); IMMATURE GRAN PERCENT AUTO 0.1 % (<=1.0); LYMPHOCYTES ABSOLUTE AUTO 1.37 K/mm3 (1.18-3.74); MEAN CORPUSCULAR HEMOGLOBIN 31.6 pg (25.6-32.2); MEAN CORPUSCULAR HGB CONC 32.3 g/dl (32.2-35.5); MEAN CORPUSCULAR VOLUME 97.9 fl (79.4-94.8); MEAN PLATELET VOLUME 10.5 fl (9.4-12.3); MONOCYTES ABSOLUTE AUTO 0.62 K/mm3 (0.24-0.36); MONOCYTES PERCENT AUTO 7.3 % (4.7-12.5); NEUTROPHILS ABSOLUTE AUTO 6.44 K/mm3 (1.56-6.13); NEUTROPHILS PERCENT AUTO 75.5 % (34.0-71.1); PLATELET COUNT,PLT 234 K/mm3 (182-369); RED BLOOD CELL COUNT 3.35 M/mm3 (3.98-5.22); WHITE BLOOD CELL COUNT,WBC 8.54 K/mm3 (3.98-10.04)
[2023-01-30 06:33] LABS: HEMOGLOBIN 10.6 gm/dl (11.2-15.7)
[2023-01-30] MEDS: Nicotine 14 MG/24 Hr Patch TRDERM SCH (08:51)
[2023-01-30] MEDS ORDERED: Ibuprofen 600 MG Tab PO PRN (09:45)
[2023-01-30] MEDS ORDERED: Bacitracin Oint 15 GM Tube TOP ONE (12:00)
[2023-01-30 16:04] VITALS: BP 108/71; PULSE 80
== END 2023-01-30 19:23 | disposition home or self-care (01) | DRG 788 ==
LOC: JD.OB 05:23 → OBSVTOIN 08:34
PROVIDERS: ADMIT Obstetrics & Gynecology; ATTEND Obstetrics & Gynecology
PROC: 10D00Z1 Extraction of Products of Conception, Low, Open Approach (ICD-10-PCS; principal; 2023-01-29)
DX: O64.1XX0 Obstructed labor due to breech presentation, not applicable or unspecified (principal); O34.219 Maternal care for unspecified type scar from previous cesarean delivery; O99.334 Smoking (tobacco) complicating childbirth; F17.210 Nicotine dependence, cigarettes, uncomplicated; Z37.0 Single live birth; Z86.16 Personal history of COVID-19; Z3A.39 39 weeks gestation of pregnancy; Z87.59 Personal history of other complications of pregnancy, childbirth and the puerperium; Z87.51 Personal history of pre-term labor; Z88.0 Allergy status to penicillin; Z88.8 Allergy status to other drugs, medicaments and biological substances; Z91.040 Latex allergy status; Z79.899 Other long term (current) drug therapy
CPT/HCPCS: 01961; 36415; 59025; 59412; 85025; 86592; 86850; 86900; 86901; 94762; A9270-GY; J0690; J1885; J2370; J2405; J2590; J2704; J3010; J3490; J7120; J7121

== ENCOUNTER → 2024-10-08 | Day surgery (SDC) | payer OTHER ==
[~2024-10-08] MED LIST changes: +Bupivacaine 0.25% 10 ML SDV ONE; +Clindamycin Phosphate in D5W 900 MG in Premix Bag 1 BAG IV ONE; +HYDROmorphone 0.5 MG/0.5 ML Syringe IVPUSH PRN; +Lactated Ringers 1,000 ML IV ONE; -Lactated Ringers 1,000 ML IV SCH; -Lactated Ringers 1,000 ML ONE; -Lidocaine 1% 4 ML ONE; -Lidocaine 1%/Sod Bicarbonate in NS 8.4% 1 ML Syringe IDERM PRN; -Midazolam 1 MG/ML 2 ML SDV ONE; +Ondansetron 4 MG/2 ML SDV IVPUSH PRN; +Sodium Chloride 0.9% 10 ML Syringe FLUSH PRN; -ceFAZolin 1 GM Vial ONE; +dexmedeTOMIDine HCl 200 MCG/2 ML SDV ONE; +fentaNYL 100 MCG/2 ML SDV IVPUSH PRN
[2024-10-08] MEDS: Lactated Ringers 1,000 ML IV SCH (07:30)
[2024-10-08] MEDS: Triamcinolone Acetonide 40 MG/ML 1 ML SDV ONE (08:42)
[2024-10-08] MEDS: Bupivacaine 0.25% 10 ML SDV ONE (08:42)
[2024-10-08 09:09] VITALS: BP 84/68; PULSE 68
== END | disposition home or self-care (01) ==
LOC: JD.SDS 09:00
PROVIDERS: ATTEND Orthopaedic Surgery
DX: M65.4 Radial styloid tenosynovitis [de Quervain] (principal); F32.A Depression, unspecified; G43.809 Other migraine, not intractable, without status migrainosus; F17.210 Nicotine dependence, cigarettes, uncomplicated; Z79.899 Other long term (current) drug therapy; Z91.040 Latex allergy status; Z88.0 Allergy status to penicillin; Z88.8 Allergy status to other drugs, medicaments and biological substances
CPT/HCPCS: 25110; J0665; J2704; J3010; J3301; J7120; 01810

== ENCOUNTER 2025-01-07 12:57 | Emergency (ER) | payer OTHER ==
[2025-01-07 14:26] LABS: BASOPHILS PERCENT AUTO 0.4 % (0.0-1.0); EOSINOPHILS PERCENT AUTO 0.3 % (0.0-6.0); HEMATOCRIT 40.5 % (37.0-47.0); HEMOGLOBIN 13.7 gm/dl (12.0-16.0); IMMATURE GRAN ABSOLUTE AUTO 0.03 K/mm3 (0.00-0.05); IMMATURE GRAN PERCENT AUTO 0.3 % (0.0-0.4); LYMPHOCYTES ABSOLUTE AUTO 2.1 K/mm3 (1.0-4.8); LYMPHOCYTES PERCENT AUTO 20.4 % (24.0-44.0); MEAN CORPUSCULAR HEMOGLOBIN 32.6 pg (28.0-32.0); MEAN CORPUSCULAR HGB CONC 33.8 g/dl (32.0-36.0); MEAN CORPUSCULAR VOLUME 96.4 fl (83.0-99.0); MONOCYTES ABSOLUTE AUTO 0.5 K/mm3 (0.0-0.8); NEUTROPHILS ABSOLUTE AUTO 7.4 K/mm3 (1.8-7.7); NEUTROPHILS PERCENT AUTO 73.6 % (41.0-71.0); PLATELET COUNT,PLT 305 K/mm3 (150-400)
[2025-01-07] MEDS: Sodium Chloride 0.9% 10 ML Syringe FLUSH PRN (14:34)
[2025-01-07] MEDS: Iopamidol 612 MG/ML 100 ML Bottle IVPUSH ONE (14:34)
[2025-01-07 14:51] LABS: A/G RATIO 1.3 (1-2); ALBUMIN 3.9 g/dl (3.4-5.0); ANION GAP 10.9 (5-15); BILIRUBIN TOTAL 0.3 mg/dL (0.2-1.0); BUN/CREATININE RATIO 11.4 (14-18); C-REACTIVE PROTEIN 0.05 mg/dL (<0.30); CALCIUM 9.1 mg/dL (8.5-10.1); CREATININE 0.7 mg/dL (0.55-1.02); EST CRCL DRUG DOSING (CG) 89.56 mL/min; PROTEIN TOTAL,TP 6.9 g/dl (6.4-8.2)
[2025-01-07 14:52] LABS: POTASSIUM,K 3.9 mEq/L (3.5-5.1)
[2025-01-07 15:30] LABS: BILIRUBIN,URINE NEGATIVE (Negative); COLOR,URINE YELLOW (Yellow); GLUCOSE,URINE NEGATIVE (Negative); KETONES,URINE NEGATIVE (Negative); LEUKOCYTE ESTERASE,URINE TRACE (Negative); NITRITE,URINE NEGATIVE (Negative); OCCULT BLOOD,URINE NEGATIVE (Negative); PROTEIN,URINE NEGATIVE (Negative); UROBILINOGEN,URINE 0.2 (0.2-1.0)
[2025-01-07 15:38] LABS: APPEARANCE,URINE SLT CLOUDY (Clear); BACTERIA,URINE MANY /hpf (FEW); MUCUS,URINE FEW /hpf (FEW); RBC,URINE 0-5 /hpf (0-5)
[2025-01-07 16:37] VITALS: BP 108/84; PULSE 64
== END 2025-01-07 16:20 | disposition home or self-care (01) ==
LOC: JD.ED 12:57
DX: R10.32 Left lower quadrant pain (principal); F17.210 Nicotine dependence, cigarettes, uncomplicated; Z79.899 Other long term (current) drug therapy; Z88.5 Allergy status to narcotic agent; Z88.1 Allergy status to other antibiotic agents; Z88.0 Allergy status to penicillin; Z91.040 Latex allergy status
CPT/HCPCS: 36415; 74177; 80053; 81001; 85025; 86140; 87086; 87088; 87186; 99284; Q9967